=== PATIENT | male | born 1940 | race Caucasian/White ===

== ENCOUNTER 2021-11-05 15:10 | Emergency (ER) | payer MEDICARE, OTHER, SELFPAY ==
[2021-11-05] VITALS (48 sets, daily range): BP systolic 103–201; BP diastolic 75–138; PULSE 69–101; RESP 12–26; TEMP 36.3; O2SAT 91–99; BMI 26.0
--- NOTE | 2021-11-05 16:09 | CRLHL7_ITS ---
For Patients: As a result of the Century Cures Act, medical imaging exams and procedure reports are released immediately into your electronic medical record. You may view this report before your referring provider. If you have questions, please contact your health care provider. Indication: Ankle pain. Technique: Left ankle, 3 views. Comparison: None. Findings: Bones: Alignment is normal. No fractures or bone lesions. Joint spaces: Unremarkable. Soft tissues: Small amount of soft tissue swelling. Impression: No sign of acute injury. Dictated by Ron Mcleod MD @ 11/05/2021 5:08:25 PM (Electronically Signed)
--- NOTE | 2021-11-05 16:09 | CRLHL7_ITS ---
For Patients: As a result of the Century Cures Act, medical imaging exams and procedure reports are released immediately into your electronic medical record. You may view this report before your referring provider. If you have questions, please contact your health care provider. INDICATION: Chest pain. TECHNIQUE: Chest 1 views. COMPARISON: None. FINDINGS: Lungs: Coarse interstitial markings suggest chronic changes. No focal consolidation. Pleura: No pleural effusion or pneumothorax. Heart and Mediastinum: The cardiomediastinal silhouette is normal. The vessels are unremarkable. Bones: Unremarkable. IMPRESSION: No acute cardiopulmonary disease. Dictated by Ron Mcleod MD @ 11/05/2021 5:10:02 PM (Electronically Signed)
--- NOTE | 2021-11-05 16:11 | ED_ITS ---
HPI - General Adult General Time Seen by Provider: 16:11 <Rashida Wan MD - Last Filed: 11/05/21 22:45> Date Seen: 11/05/21 <Rashida Wan MD - Last Filed: 11/05/21 22:45> Chief complaint: Chest Pain <Rashida Wan MD - Last Filed: 11/05/21 22:45> Stated complaint: Chest Pain <Rashida Wan MD - Last Filed: 11/05/21 22:45> Time Seen by Provider: 11/05/21 15:55 <Rashida Wan MD - Last Filed: 11/05/21 22:45> Source: patient and RN notes reviewed <Rashida Wan MD - Last Filed: 11/05/21 22:45> Mode of arrival: ambulatory <Rashida Wan MD - Last Filed: 11/05/21 22:45> Limitations: no limitations <Rashida Wan MD - Last Filed: 11/05/21 22:45> History of Present Illness HPI narrative: Patient is a 81-year-old male coming in with recurrent chest pain today. It woke him this morning and then went away pretty quickly. He attempted to jadiel an his house after that and had that chest pain return and was sweating with this. He went and sat down in the recliner in it went away. He ate lunch and then attempted to go out in multiple on his riding lawnmower. The pain came back again he went back in the house and waited in his recliner on it took longer to go away. He does not take any baseline aspirin, did try a couple Tylenol at noon. About a week and a half ago he did injure his left ankle. States it was swollen and there was bruising. He finally got the swelling to go down with icing. He was concerned that maybe this could be related with a blood clot. He has had no calf pain or swelling. He is not having any pain currently now. He has never had an UT before. He states he had stress test a long time ago. He is not feeling short of breath. He has no abdominal pain but does feel like he has a little gassy and burping. The pain was in his chest and radiated into his left arm. He describes it as severe. Denies any alcohol use, states he can no longer drink it as it really affects him. <Rashida Wan MD - Last Filed: 11/05/21 22:45> Related Data Home medications: Home Medications Medication Instructions Recorded Confirmed No Known Home Medications 11/05/21 11/05/21 <Rashida Wan MD - Last Filed: 11/05/21 22:45> Allergies/adverse reactions: Allergies Allergy/AdvReac Type Severity Reaction Status Date / Time No Known Drug Allergies Allergy Verified 11/05/21 17:08 <Rashida Wan MD - Last Filed: 11/05/21 22:45> Review of Systems Status of ROS: Reports: 10 or more systems reviewed and unremarkable except as noted in History and below <Rashida Wan MD - Last Filed: 11/05/21 22:45> PFSH PFS Social History: Social History Smoking Status: Never smoker Do you use any of these nicotine containing products: None How often do you have a drink containing alcohol: monthly or less How often do you have six or more drinks on one occasion: Never AUDIT-C Alcohol total score: 1 Non-prescribed substance use: denies use service: Yes <Rashida Wan MD - Last Filed: 11/05/21 22:45> Exam Const: Vital Signs, click to edit/add: Vital Signs - 24 hr 11/05/21 15:25 11/05/21 16:46 11/05/21 17:01 Temperature 97.4 F L Pulse Rate 84 Pulse Rate [Right Pulse Oximeter] 97 Respiratory Rate 22 Blood Pressure 147/89 H Blood Pressure [Ri ght Upper Arm] 201/122 H Pulse Oximetry 98 96 Oxygen Delivery Me thod 11/05/21 17:32 11/05/21 18:01 11/05/21 18:32 Temperature Pulse Rate 73 75 69 Pulse Rate [Right Pulse Oximeter] Respiratory Rate Blood Pressure 166/99 H 155/96 H 159/97 H Blood Pressure [Ri ght Upper Arm] Pulse Oximetry 97 95 97 Oxygen Delivery Me thod 11/05/21 16:00 11/05/21 16:30 11/05/21 19:00 Temperature Pulse Rate 86 80 90 Pulse Rate [Right Pulse Oximeter] Respiratory Rate 12 16 16 Blood Pressure 149/96 H 152/90 H 198/138 H Blood Pressure [Ri ght Upper Arm] Pulse Oximetry 96 96 98 Oxygen Delivery Me thod 11/05/21 19:10 11/05/21 19:15 11/05/21 19:25 Temperature Pulse Rate 90 100 88 Pulse Rate [Right Pulse Oximeter] Respiratory Rate 13 18 Blood Pressure 152/108 H 144/107 H 133/93 H Blood Pressure [Ri ght Upper Arm] Pulse Oximetry 95 95 96 Oxygen Delivery Me od 11/05/21 19:30 11/05/21 19:35 11/05/21 19:40 Temperature Pulse Rate 96 95 99 Pulse Rate [Right Pulse Oximeter] Respiratory Rate 26 H Blood Pressure 143/100 H 141/104 H 140/115 H Blood Pressure [Ri ght Upper Arm] Pulse Oximetry 97 96 [facility] 19:45 11/05/21 20:00 11/05/21 20:15 Temperature Pulse Rate 90 92 91 Pulse Rate [Right Pulse Oximeter] Respiratory Rate 12 14 12 Blood Pressure 145/90 H 149/90 H 133/94 H Blood Pressure [Ri ght Upper Arm] Pulse Oximetry 97 95 94 Oxygen Delivery Me thod 11/06/21 00:30 11/06/21 00:00 11/05/21 23:30 Temperature Pulse Rate Pulse Rate [Right Pulse Oximeter] 82 82 76 Respiratory Rate 16 16 16 Blood Pressure Blood Pressure [Ri ght Upper Arm] 124/86 131/93 H 123/85 Pulse Oximetry 97 97 97 Oxygen Delivery Me od Room Air Room Air Room Air 11/05/21 23:00 11/05/21 22:30 11/05/21 22:00 Temperature Pulse Rate Pulse Rate [Right Pulse Oximeter] 80 72 83 Respiratory Rate 16 16 16 Blood Pressure Blood Pressure [Ri ght Upper Arm] 121/75 119/78 103/79 Pulse Oximetry 97 97 97 Oxygen Delivery Me od Room Air Room Air Room Air 11/05/21 21:30 11/05/21 21:00 11/05/21 20:45 Temperature Pulse Rate Pulse Rate [Right Pulse Oximeter] 83 89 97 Respiratory Rate 16 16 16 Blood Pressure Blood Pressure [Ri ght Upper Arm] 120/88 139/85 131/93 H Pulse Oximetry 97 97 95 Oxygen Delivery Me thod Room Air Room Air Room Air 11/05/21 19:02 11/05/21 19:12 11/05/21 19:17 Temperature Pulse Rate 93 98 88 Pulse Rate [Right Pulse Oximeter] Respiratory Rate Blood Pressure 198/138 H 152/108 H 144/107 H Blood Pressure [Ri ght Upper Arm] Pulse Oximetry 97 92 96 Oxygen Delivery Me thod 11/05/21 19:27 11/05/21 19:31 11/05/21 19:34 Temperature Pulse Rate 100 97 97 Pulse Rate [Right Pulse Oximeter] Respiratory Rate Blood Pressure 133/93 H 143/100 H Blood Pressure [Ri ght Upper Arm] Pulse Oximetry 94 95 95 Oxygen Delivery Me thod 11/05/21 19:36 11/05/21 19:41 11/05/21 19:46 Temperature Pulse Rate 86 96 101 H Pulse Rate [Right Pulse Oximeter] Respiratory Rate Blood Pressure 141/104 H 140/115 H 145/90 H Blood Pressure [Ri ght Upper Arm] Pulse Oximetry 95 95 93 Oxygen Delivery Me thod 11/05/21 20:02 11/05/21 20:16 11/05/21 20:32 Temperature Pulse Rate 100 97 99 Pulse Rate [Right Pulse Oximeter] Respiratory Rate Blood Pressure 149/90 H 133/94 H 127/88 Blood Pressure [Ri ght Upper Arm] Pulse Oximetry 95 94 92 Oxygen Delivery Me thod 11/05/21 21:01 11/05/21 21:17 11/05/21 21:31 Temperature Pulse Rate 85 83 Pulse Rate [Right Pulse Oximeter] Respiratory Rate Blood Pressure 139/85 120/88 Blood Pressure [Ri ght Upper Arm] Pulse Oximetry 95 96 Oxygen Delivery Me thod 11/05/21 22:02 11/05/21 22:18 11/05/21 22:30 Temperature Pulse Rate 83 76 Pulse Rate [Right Pulse Oximeter] Respiratory Rate Blood Pressure 103/79 Blood Pressure [Ri ght Upper Arm] Pulse Oximetry 93 95 Oxygen Delivery Me thod 11/05/21 22:31 11/05/21 22:45 11/05/21 23:00 Temperature Pulse Rate 80 85 81 Pulse Rate [Right Pulse Oximeter] Respiratory Rate Blood Pressure 119/78 Blood Pressure [Ri ght Upper Arm] Pulse Oximetry 94 92 95 Oxygen Delivery Me thod 11/05/21 23:01 11/05/21 23:15 11/05/21 23:30 Temperature Pulse Rate 78 80 77 Pulse Rate [Right Pulse Oximeter] Respiratory Rate Blood Pressure 121/75 Blood Pressure [Ri ght Upper Arm] Pulse Oximetry 95 95 94 Oxygen Delivery Me thod 11/05/21 23:31 11/05/21 23:45 11/06/21 00:00 Temperature Pulse Rate 82 84 70 Pulse Rate [Right Pulse Oximeter] Respiratory Rate Blood Pressure 123/85 Blood Pressure [Ri ght Upper Arm] Pulse Oximetry 92 91 96 Oxygen Delivery Me thod 11/06/21 00:02 11/06/21 00:21 11/06/21 00:30 Temperature Pulse Rate 79 80 87 Pulse Rate [Right Pulse Oximeter] Respiratory Rate Blood Pressure 123/78 Blood Pressure [Ri ght Upper Arm] Pulse Oximetry 95 97 96 Oxygen Delivery Me thod 11/06/21 00:31 11/06/21 00:45 Temperature Pulse Rate 78 82 Pulse Rate [Right Pulse Oximeter] Respiratory Rate Blood Pressure 124/86 Blood Pressure [Ri ght Upper Arm] Pulse Oximetry 96 95 Oxygen Delivery Me thod <Rashida Wan MD - Last Filed: 11/05/21 22:45> Vital Signs, click to edit/add: Vital Signs - 24 hr 11/05/21 15:25 11/05/21 16:46 11/05/21 17:01 Temperature 97.4 F L Pulse Rate 84 Pulse Rate [Right Pulse Oximeter] 97 Respiratory Rate 22 Blood Pressure 147/89 H Blood Pressure [Ri ght Upper Arm] 201/122 H Pulse Oximetry 98 96 Oxygen Delivery Me thod 11/05/21 17:32 11/05/21 18:01 11/05/21 18:32 Temperature Pulse Rate 73 75 69 Pulse Rate [Right Pulse Oximeter] Respiratory Rate Blood Pressure 166/99 H 155/96 H 159/97 H Blood Pressure [Ri ght Upper Arm] Pulse Oximetry 97 95 97 Oxygen Delivery Me thod 11/05/21 16:00 11/05/21 16:30 11/05/21 19:00 Temperature Pulse Rate 86 80 90 Pulse Rate [Right Pulse Oximeter] Respiratory Rate 12 16 16 Blood Pressure 149/96 H 152/90 H 198/138 H Blood Pressure [Ri ght Upper Arm] Pulse Oximetry 96 96 98 [facility] 19:10 11/05/21 19:15 11/05/21 19:25 Temperature Pulse Rate 90 100 88 Pulse Rate [Right Pulse Oximeter] Respiratory Rate 13 18 Blood Pressure 152/108 H 144/107 H 133/93 H Blood Pressure [Ri ght Upper Arm] Pulse Oximetry 95 95 96 [facility] 11/05/21 19:30 11/05/21 19:35 11/05/21 19:40 Temperature Pulse Rate 96 95 99 Pulse Rate [Right Pulse Oximeter] Respiratory Rate 26 H Blood Pressure 143/100 H 141/104 H 140/115 H Blood Pressure [Ri ght Upper Arm] Pulse Oximetry 97 96 99 [facility] 11/05/21 19:45 11/05/21 20:00 11/05/21 20:15 Temperature Pulse Rate 90 92 91 Pulse Rate [Right Pulse Oximeter] Respiratory Rate 12 14 12 Blood Pressure 145/90 H 149/90 H 133/94 H Blood Pressure [Ri ght Upper Arm] Pulse Oximetry 97 95 94 [facility] 11/06/21 00:30 11/06/21 00:00 11/05/21 23:30 Temperature Pulse Rate Pulse Rate [Right Pulse Oximeter] 82 82 76 Respiratory Rate 16 16 16 Blood Pressure Blood Pressure [Ri ght Upper Arm] 124/86 131/93 H 123/85 Pulse Oximetry 97 97 97 Oxygen Delivery [facility] Room Air Room Air Room Air 11/05/21 23:00 11/05/21 22:30 11/05/21 22:00 Temperature Pulse Rate Pulse Rate [Right Pulse Oximeter] 80 72 83 Respiratory Rate 16 16 16 Blood Pressure Blood Pressure [Ri ght Upper Arm] 121/75 119/78 103/79 Pulse Oximetry 97 97 97 Oxygen Delivery [facility] Room Air Room Air Room Air 11/05/21 21:30 11/05/21 21:00 11/05/21 20:45 Temperature Pulse Rate Pulse Rate [Right Pulse Oximeter] 83 89 97 Respiratory Rate 16 16 16 Blood Pressure Blood Pressure [Ri ght Upper Arm] 120/88 139/85 131/93 H Pulse Oximetry 97 97 95 Oxygen Delivery Me thod Room Air Room Air Room Air 11/05/21 19:02 11/05/21 19:12 11/05/21 19:17 Temperature Pulse Rate 93 98 88 Pulse Rate [Right Pulse Oximeter] Respiratory Rate Blood Pressure 198/138 H 152/108 H 144/107 H Blood Pressure [Ri ght Upper Arm] Pulse Oximetry 97 92 96 Oxygen Delivery Me thod 11/05/21 19:27 11/05/21 19:31 11/05/21 19:34 Temperature Pulse Rate 100 97 97 Pulse Rate [Right Pulse Oximeter] Respiratory Rate Blood Pressure 133/93 H 143/100 H Blood Pressure [Ri ght Upper Arm] Pulse Oximetry 94 95 95 Oxygen Delivery Me thod 11/05/21 19:36 11/05/21 19:41 11/05/21 19:46 Temperature Pulse Rate 86 96 101 H Pulse Rate [Right Pulse Oximeter] Respiratory Rate Blood Pressure 141/104 H 140/115 H 145/90 H Blood Pressure [Ri ght Upper Arm] Pulse Oximetry 95 95 93 Oxygen Delivery Me thod 11/05/21 20:02 11/05/21 20:16 11/05/21 20:32 Temperature Pulse Rate 100 97 99 Pulse Rate [Right Pulse Oximeter] Respiratory Rate Blood Pressure 149/90 H 133/94 H 127/88 Blood Pressure [Ri ght Upper Arm] Pulse Oximetry 95 94 92 Oxygen Delivery Me thod 11/05/21 21:01 11/05/21 21:17 11/05/21 21:31 Temperature Pulse Rate 85 83 Pulse Rate [Right Pulse Oximeter] Respiratory Rate Blood Pressure 139/85 120/88 Blood Pressure [Ri ght Upper Arm] Pulse Oximetry 95 96 Oxygen Delivery Me thod 11/05/21 22:02 11/05/21 22:18 11/05/21 22:30 Temperature Pulse Rate 83 76 Pulse Rate [Right Pulse Oximeter] Respiratory Rate Blood Pressure 103/79 Blood Pressure [Ri ght Upper Arm] Pulse Oximetry 93 95 Oxygen Delivery Me thod 11/05/21 22:31 11/05/21 22:45 11/05/21 23:00 Temperature Pulse Rate 80 85 81 Pulse Rate [Right Pulse Oximeter] Respiratory Rate Blood Pressure 119/78 Blood Pressure [Ri ght Upper Arm] Pulse Oximetry 94 92 95 Oxygen Delivery Me thod 11/05/21 23:01 11/05/21 23:15 11/05/21 23:30 Temperature Pulse Rate 78 80 77 Pulse Rate [Right Pulse Oximeter] Respiratory Rate Blood Pressure 121/75 Blood Pressure [Ri ght Upper Arm] Pulse Oximetry 95 95 94 Oxygen Delivery Me thod 11/05/21 23:31 11/05/21 23:45 11/06/21 00:00 Temperature Pulse Rate 82 84 70 Pulse Rate [Right Pulse Oximeter] Respiratory Rate Blood Pressure 123/85 Blood Pressure [Ri ght Upper Arm] Pulse Oximetry 92 91 96 Oxygen Delivery Me thod 11/06/21 00:02 11/06/21 00:21 11/06/21 00:30 Temperature Pulse Rate 79 80 87 Pulse Rate [Right Pulse Oximeter] Respiratory Rate Blood Pressure 123/78 Blood Pressure [Ri ght Upper Arm] Pulse Oximetry 95 97 96 Oxygen Delivery Me thod 11/06/21 00:31 11/06/21 00:45 Temperature Pulse Rate 78 82 Pulse Rate [Right Pulse Oximeter] Respiratory Rate Blood Pressure 124/86 Blood Pressure [Ri ght Upper Arm] Pulse Oximetry 96 95 Oxygen Delivery Me thod <Gonsalo Busch MD - Last Filed: 11/06/21 02:26> Documenting provider has reviewed patient's vital signs: yes <Rashida Wan MD - Last Filed: 11/05/21 22:45> Common normals: no apparent distress, average body habitus, oriented x3, no limitations, healthy appearing and alert <Rashida Wan MD - Last Filed: 11/05/21 22:45> General appearance: cooperative, comfortable and well kempt <Rashida Wan MD - Last Filed: 11/05/21 22:45> HENMT: Common normals: normocephalic, head/scalp atraumatic and hearing grossly normal bilaterally <Rashida Wan MD - Last Filed: 11/05/21 22:45> Head and scalp: normocephalic and atraumatic <Rashida Wan MD - Last Filed: 11/05/21 22:45> Eye: Common normals: PERRL, EOMs intact bilaterally, conjunctivae normal and no scleral icterus <Rashida Wan MD - Last Filed: 11/05/21 22:45> Conjunctiva: conjunctiva(e) normal <Rashida Wan MD - Last Filed: 11/05/21 22:45> Pupil: PERRL <Rashida Wan MD - Last Filed: 11/05/21 22:45> Neck & C-Spine: Common normals: full ROM, no lymphadenopathy, supple, no meningeal signs, no JVD and thyroid normal <Rashida Wan MD - Last Filed: 11/05/21 22:45> Thyroid: thyroid normal <Rashida Wan MD - Last Filed: 11/05/21 22:45> Chest: Common normals: inspection of chest normal and palpation of chest normal <Rashida Wan MD - Last Filed: 11/05/21 22:45> Resp: Common normals: normal respiratory effort, no retractions, no use of accessory muscles and clear to auscultation bilaterally <Rashida Stewart MD - Last Filed: 11/05/21 22:45> Auscultation: clear to auscultation bilaterally <Rashida Wan MD - Last Filed: 11/05/21 22:45> Cardio: Common normals: no JVD, regular rate, regular rhythm, S1 normal heart sound, S2 normal heart sound, no gallops, no clicks and no murmurs <Rashida Wan MD - Last Filed: 11/05/21 22:45> Rate: regular rate <Rashida Wan MD - Last Filed: 11/05/21 22:45> Rhythm: regular rhythm <Rashida Wan MD - Last Filed: 11/05/21 22:45> Heart sounds: S1 normal and S2 normal <Rashida Wan MD - Last Filed: 11/05/21 22:45> GI: Common normals: Normal to inspection, nondistended, normoactive bowel sounds present, soft to palpation, non-tender, no hepatosplenomegaly and no masses <Rashida Wan MD - Last Filed: 11/05/21 22:45> Palpation: soft and no hepatosplenomegaly <Rashida Wan MD - Last Filed: 11/05/21 22:45> Extremity: Common normals: normal to inspection, normal capillary refill, no joint enlargement, no clubbing, cyanosis or edema, no calf tenderness and no pedal edema <Rashida Wan MD - Last Filed: 11/05/21 22:45> Other: The left ankle is without swelling but he does have medial malleolus tenderness. He certainly does not have any calf swelling or tenderness, no pretibial edema on this side. <Rashida Wan MD - Last Filed: 11/05/21 22:45> Neuro: Common normals: oriented x3 <Rashida aWn MD - Last Filed: 11/05/21 22:45> Sensorium/orientation: alert <Rashida Wan MD - Last Filed: 11/05/21 22:45> Meningeal signs: no meningeal signs <Rashida Wan MD - Last Filed: 11/05/21 22:45> Psych: Appearance: well kempt <Rashida Wan MD - Last Filed: 11/05/21 22:45> Skin: Common normals: no rashes or lesions noted (Skin is tanned) <Rashida Wan MD - Last Filed: 11/05/21 22:45> General skin exam: no rashes or lesions noted (Skin is tanned) <Rashida Wan MD - Last Filed: 11/05/21 22:45> Course Course Hospital Course: Patient will be given a 324 mg aspirin as his troponin is mildly elevated. In his differential I do think thromboembolic disease is less likely given his blood pressure is elevated. Coronary arterial vascular disease, dissection all come to mind. He understands he may need further imaging if the D-dimer is elevated. Will continue to monitor his blood pressure quite closely initially here. Heart rate is high enough that we could give him a beta-contreras to help bring this down a bit. He is no longer having any chest symptomatology. Will obtain a portable chest x-ray, will x-ray his left ankle to ensure no traumatic change there. <Rashida Wan MD - Last Filed: 11/05/21 22:45> Reevaluation(s) Reevaluation #1: Nursing staff brought me a manager cardiac cath strip showing what appears to be some short-lived V-tach, patient reportedly not symptomatic with it. However when nursing staff went in to try to get a repeat EKG he was starting to have some chest pain right after this. EKG showed sinus rhythm 73 beats per minute with acute ST segment elevation V1 through V3, maybe mildly V4 and V5, some ST depression V6. He was diaphoretic and sweaty. We did give him 1 sublingual n itroglycerin 0.4 mg of which he did feel helped. His blood pressure was elevated in the 190s at this point. Nursing staff is attempting to get another IV in. They will recycle a blood pressure once they have completed this. I have asked nursing staff to initiate some IV nitroglycerin, this should help bring blood pressure down a bit to and will give him some baseline ongoing nitroglycerin. I have asked for ACS heparin protocol. I have contacted [facility] for transfer and am awaiting a call back from cardiology. Will continue to work on pain management, will converse with Cardiology to see if the rather have Brilinta or Plavix. <Rashida Wan MD - Last Filed: 11/05/21 22:45> Time: 18:55 <Rashida Wan MD - Last Filed: 11/05/21 22:45> Reevaluation #2: Spoke with Dr. Vinson cardiology from [facility], repeat EKG now with patient being pain free after the 1 sublingual nitroglycerin is showing sinus rhythm, 100 beats per minute, no acute pathology. [facility] is on magenta and thus cannot take him since he is not a level 1 any longer. [facility] of [facility] is magenta, meaning they are beyond capacity. They will not even wait list this patient. I have contacted [facility], spoke with the charge nurse Evita at 7:26 p.m.. Male facilities are on divert right now, she recommended we call back after 8:00 p.m. to see if that is going to be the case as they will be re- evaluating at that time. I will have staff look at other facilities. This patient obviously needs to get to Cardiology, has unstable angina. Will hold on Plavix loading at this time. <Rashida Wan MD - Last Filed: 11/05/21 22:45> Time: 19:27 <Rashida Wan MD - Last Filed: 11/05/21 22:45> Reevaluation #3: Patient is comfortable, no recurrence of pain. Will have point of care troponin updated to see where the level is. He is aware to let us know if there is any return of his diaphoresis chest pain or left arm pain. We are calling facilities again to see if there might be any chance for transfer to Cardiology. <Rashida Wan MD - Last Filed: 11/05/21 22:45> Time: 21:42 <Rashida Wan MD - Last Filed: 11/05/21 22:45> Additional Reevaluation(s): Awaiting [facility] chart review of this patient and call back from them. We are also waiting to hear back from [facility]. All other facilities including [facility], [facility], [facility], [facility] are unable to accept the patient. Care has been signed out to Dr. Busch. <Rashida Wan MD - Last Filed: 11/05/21 22:45> Awaiting [facility] chart review of this patient and call back from them. We are also waiting to hear back from [facility]. All other facilities including [facility], [facility], [facility], [facility] are unable to accept the patient. Care has been signed out to Dr. Busch. 1:00 AM patient remained stable in the emergency department prior to transfer, no further episodes of chest pain and remained on nitroglycerin and heparin drips. Transfer to [facility] in stable condition. Did not receive a call back from [facility]. <Gonsalo Busch MD - Last Filed: 11/06/21 02:26> Vital Signs Vital signs: Initial Vital Signs Temperature 97.4 F L 11/05/21 15:25 Temperature Source Temporal Artery Scan 11/05/21 15:25 Pulse Rate 97 11/05/21 15:25 Respiratory Rate 22 11/05/21 15:25 Blood Pressure 201/122 H 11/05/21 15:25 Blood Pressure Mean 148 11/05/21 15:25 Blood Pressure Position Supine 11/05/21 15:25 Pulse Oximetry 98 11/05/21 15:25 Vital Signs Temperature 97.4 F L 11/05/21 15:25 Pulse Rate 97 11/05/21 15:25 Respiratory Rate 22 11/05/21 15:25 Blood Pressure 201/122 H 11/05/21 15:25 Pulse Oximetry 98 11/05/21 15:25 Temperature 97.4 F L 11/05/21 15:25 Pulse Rate 82 11/06/21 00:45 Respiratory Rate 16 11/06/21 00:30 Blood Pressure 124/86 11/06/21 00:31 Pulse Oximetry 95 11/06/21 00:45 Oxygen Delivery Method 11/06/21 00:30 <Rashida Wan MD - Last Filed: 11/05/21 22:45> Initial Vital Signs Temperature 97.4 F L 11/05/21 15:25 Temperature Source Temporal Artery Scan 11/05/21 15:25 Pulse Rate 97 11/05/21 15:25 Respiratory Rate 22 11/05/21 15:25 Blood Pressure 201/122 H 11/05/21 15:25 Blood Pressure Mean 148 11/05/21 15:25 Blood Pressure Position Supine 11/05/21 15:25 Pulse Oximetry 98 11/05/21 15:25 Vital Signs Temperature 97.4 F L 11/05/21 15:25 Pulse Rate 97 11/05/21 15:25 Respiratory Rate 22 11/05/21 15:25 Blood Pressure 201/122 H 11/05/21 15:25 Pulse Oximetry 98 11/05/21 15:25 Temperature 97.4 F L 11/05/21 15:25 Pulse Rate 82 11/06/21 00:45 Respiratory Rate 16 11/06/21 00:30 Blood Pressure 124/86 11/06/21 00:31 Pulse Oximetry 95 11/06/21 00:45 Oxygen Delivery Method 11/06/21 00:30 <Gonsalo Busch MD - Last Filed: 11/06/21 02:26> Medical Decision Making Lab Data Lab results reviewed: Yes I reviewed the patient's lab results <Rashida Wan MD - Last Filed: 11/05/21 22:45> Labs: Lab Results 11/05/21 11/05/21 11/05/21 Range/Units 15:35 15:35 15:35 WBC 9.94 (4.50-11.00) K/uL RBC 5.45 (4.30-5.90) m/uL Hgb 16.7 (13.5-17.5) gm/dL Hct 48.7 (37.0-53.0) % MCV 89 (80-100) fL MCH 31 (26-34) pg MCHC 34 (32-36) gm/dL RDW Coeff of Lesli 13.1 (11.5-15.5) % Plt Count 237 (140-440) K/uL Neut % (Auto) 70.7 (42.0-72.0) % Lymph % (Auto) 18.0 L (20-44) % [place] % (Auto) 10.0 (0.0-11.0) % Eos % (Auto) 0.4 (0.0-7.0) % Baso % (Auto) 0.4 (0.0-3.0) % Neut # (Auto) 7.03 H (1.7-7.0) K/uL Lymph # (Auto) 1.80 (0.90-2.90) K/uL [place] # (Auto) 1.00 H (0.00-0.90) K/UL Eos # (Auto) 0.04 (0.00-0.50) K/uL Baso # (Auto) 0.04 (0.00-0.30) K/uL Abs Immat Gran (auto) 0.05 (0.00-0.30) K/uL INR (0.91-1.10) APTT (23-33) Seconds D-Dimer Quant (PE/DVT) 1.07 H (0.00-0.50) ug/ml Sodium (135-149) mmol/L Potassium (3.6-5.1) mmol/L Chloride (96-114) mmol/L Carbon Dioxide (20-32) mmol/L BUN (7-30) mg/dL Creatinine (0.5-1.5) mg/dL Estimated Creat Clear Estimated GFR ml/min Glucose (60-115) mg/dL Lactate (0.5-1.9) mmol/L Calcium (8.4-10.6) mg/dL Total Bilirubin (0.1-1.5) mg/dL AST (12-35) U/L ALT (4-50) U/L Alkaline Phosphatase (40-150) U/L C-Reactive Protein Cancelled NT-Pro-B Natriuret Pep (0-450) PG/mL Total Protein (6.0-8.3) g/dL Albumin (3.3-5.0) g/dL Lipase (23-300) U/L SARS-CoV-2 (PCR) (Negative) POC Troponin I (0.01-0.04) ng/ml 11/05/21 11/05/21 11/05/21 Range/Units 15:35 15:35 15:35 WBC (4.50-11.00) K/uL RBC (4.30-5.90) m/uL Hgb (13.5-17.5) gm/dL Hct (37.0-53.0) % MCV (80-100) fL MCH (26-34) pg MCHC (32-36) gm/dL RDW Coeff of Lesli (11.5-15.5) % Plt Count (140-440) K/uL Neut % (Auto) (42.0-72.0) % Lymph % (Auto) (20-44) % [place] % (Auto) (0.0-11.0) % Eos % (Auto) (0.0-7.0) % Baso % (Auto) (0.0-3.0) % Neut # (Auto) (1.7-7.0) K/uL Lymph # (Auto) (0.90-2.90) K/uL [place] # (Auto) (0.00-0.90) K/UL Eos # (Auto) (0.00-0.50) K/uL Baso # (Auto) (0.00-0.30) K/uL Abs Immat Gran (auto) (0.00-0.30) K/uL INR (0.91-1.10) APTT (23-33) Seconds D-Dimer Quant (PE/DVT) (0.00-0.50) ug/ml Sodium 139 (135-149) mmol/L Potassium 4.5 (3.6-5.1) mmol/L Chloride 103 (96-114) mmol/L Carbon Dioxide 22 (20-32) mmol/L BUN 20 (7-30) mg/dL Creatinine 0.8 (0.5-1.5) mg/dL Estimated Creat Clear 71.59 Estimated GFR 90 ml/min Glucose 115 (60-115) mg/dL Lactate 2.1 H (0.5-1.9) mmol/L Calcium 9.5 (8.4-10.6) mg/dL Total Bilirubin 0.6 (0.1-1.5) mg/dL AST 40 H (12-35) U/L ALT 29 (4-50) U/L Alkaline Phosphatase 63 (40-150) U/L C-Reactive Protein < 0.5 L NT-Pro-B Natriuret Pep 167 (0-450) PG/mL Total Protein 8.5 H (6.0-8.3) g/dL Albumin 4.6 (3.3-5.0) g/dL Lipase 57 (23-300) U/L SARS-CoV-2 (PCR) (Negative) POC Troponin I 0.06 H (0.01-0.04) ng/ml 11/05/21 11/05/21 11/05/21 Range/Units 15:35 18:45 20:07 WBC (4.50-11.00) K/uL RBC (4.30-5.90) m/uL Hgb (13.5-17.5) gm/dL Hct (37.0-53.0) % MCV (80-100) fL MCH (26-34) pg MCHC (32-36) gm/dL RDW Coeff of Lesli (11.5-15.5) % Plt Count (140-440) K/uL Neut % (Auto) (42.0-72.0) % Lymph % (Auto) (20-44) % [place] % (Auto) (0.0-11.0) % Eos % (Auto) (0.0-7.0) % Baso % (Auto) (0.0-3.0) % Neut # (Auto) (1.7-7.0) K/uL Lymph # (Auto) (0.90-2.90) K/uL [place] # (Auto) (0.00-0.90) K/UL Eos # (Auto) (0.00-0.50) K/uL Baso # (Auto) (0.00-0.30) K/uL Abs Immat Gran (auto) (0.00-0.30) K/uL INR 1.00 (0.91-1.10) APTT 32 (23-33) Seconds D-Dimer Quant (PE/DVT) (0.00-0.50) ug/ml Sodium (135-149) mmol/L Potassium (3.6-5.1) mmol/L Chloride (96-114) mmol/L Carbon Dioxide (20-32) mmol/L BUN (7-30) mg/dL Creatinine (0.5-1.5) mg/dL Estimated Creat Clear Estimated GFR ml/min Glucose (60-115) mg/dL Lactate (0.5-1.9) mmol/L Calcium (8.4-10.6) mg/dL Total Bilirubin (0.1-1.5) mg/dL AST (12-35) U/L ALT (4-50) U/L Alkaline Phosphatase (40-150) U/L C-Reactive Protein NT-Pro-B Natriuret Pep (0-450) PG/mL Total Protein (6.0-8.3) g/dL Albumin (3.3-5.0) g/dL Lipase (23-300) U/L SARS-CoV-2 (PCR) Negative SARS-CoV-2 (Negative) POC Troponin I 0.15 H (0.01-0.04) ng/ml 11/05/21 Range/Units 21:05 WBC (4.50-11.00) K/uL RBC (4.30-5.90) m/uL Hgb (13.5-17.5) gm/dL Hct (37.0-53.0) % MCV (80-100) fL MCH (26-34) pg MCHC (32-36) gm/dL RDW Coeff of Lesli (11.5-15.5) % Plt Count (140-440) K/uL Neut % (Auto) (42.0-72.0) % Lymph % (Auto) (20-44) % [place] % (Auto) (0.0-11.0) % Eos % (Auto) (0.0-7.0) % Baso % (Auto) (0.0-3.0) % Neut # (Auto) (1.7-7.0) K/uL Lymph # (Auto) (0.90-2.90) K/uL [place] # (Auto) (0.00-0.90) K/UL Eos # (Auto) (0.00-0.50) K/uL Baso # (Auto) (0.00-0.30) K/uL Abs Immat Gran (auto) (0.00-0.30) K/uL INR (0.91-1.10) APTT (23-33) Seconds D-Dimer Quant (PE/DVT) (0.00-0.50) ug/ml Sodium (135-149) mmol/L Potassium (3.6-5.1) mmol/L Chloride (96-114) mmol/L Carbon Dioxide (20-32) mmol/L BUN (7-30) mg/dL Creatinine (0.5-1.5) mg/dL Estimated Creat Clear Estimated GFR ml/min Glucose (60-115) mg/dL Lactate (0.5-1.9) mmol/L Calcium (8.4-10.6) mg/dL Total Bilirubin (0.1-1.5) mg/dL AST (12-35) U/L ALT (4-50) U/L Alkaline Phosphatase (40-150) U/L C-Reactive Protein NT-Pro-B Natriuret Pep (0-450) PG/mL Total Protein (6.0-8.3) g/dL Albumin (3.3-5.0) g/dL Lipase (23-300) U/L SARS-CoV-2 (PCR) (Negative) POC Troponin I 0.16 H (0.01-0.04) ng/ml <Rashida Wan MD - Last Filed: 11/05/21 22:45> Lab Results 11/05/21 11/05/21 11/05/21 Range/Units 15:35 15:35 15:35 WBC 9.94 (4.50-11.00) K/uL RBC 5.45 (4.30-5.90) m/uL Hgb 16.7 (13.5-17.5) gm/dL Hct 48.7 (37.0-53.0) % MCV 89 (80-100) fL MCH 31 (26-34) pg MCHC 34 (32-36) gm/dL RDW Coeff of Lesli 13.1 (11.5-15.5) % Plt Count 237 (140-440) K/uL Neut % (Auto) 70.7 (42.0-72.0) % Lymph % (Auto) 18.0 L (20-44) % [place] % (Auto) 10.0 (0.0-11.0) % Eos % (Auto) 0.4 (0.0-7.0) % Baso % (Auto) 0.4 (0.0-3.0) % Neut # (Auto) 7.03 H (1.7-7.0) K/uL Lymph # (Auto) 1.80 (0.90-2.90) K/uL [place] # (Auto) 1.00 H (0.00-0.90) K/UL Eos # (Auto) 0.04 (0.00-0.50) K/uL Baso # (Auto) 0.04 (0.00-0.30) K/uL Abs Immat Gran (auto) 0.05 (0.00-0.30) K/uL INR (0.91-1.10) APTT (23-33) Seconds D-Dimer Quant (PE/DVT) 1.07 H (0.00-0.50) ug/ml Sodium (135-149) mmol/L Potassium (3.6-5.1) mmol/L Chloride (96-114) mmol/L Carbon Dioxide (20-32) mmol/L BUN (7-30) mg/dL Creatinine (0.5-1.5) mg/dL Estimated Creat Clear Estimated GFR ml/min Glucose (60-115) mg/dL Lactate (0.5-1.9) mmol/L Calcium (8.4-10.6) mg/dL Total Bilirubin (0.1-1.5) mg/dL AST (12-35) U/L ALT (4-50) U/L Alkaline Phosphatase (40-150) U/L C-Reactive Protein Cancelled NT-Pro-B Natriuret Pep (0-450) PG/mL Total Protein (6.0-8.3) g/dL Albumin (3.3-5.0) g/dL Lipase (23-300) U/L SARS-CoV-2 (PCR) (Negative) POC Troponin I (0.01-0.04) ng/ml 11/05/21 11/05/21 11/05/21 Range/Units 15:35 15:35 15:35 WBC (4.50-11.00) K/uL RBC (4.30-5.90) m/uL Hgb (13.5-17.5) gm/dL Hct (37.0-53.0) % MCV (80-100) fL MCH (26-34) pg MCHC (32-36) gm/dL RDW Coeff of Lesli (11.5-15.5) % Plt Count (140-440) K/uL Neut % (Auto) (42.0-72.0) % Lymph % (Auto) (20-44) % [place] % (Auto) (0.0-11.0) % Eos % (Auto) (0.0-7.0) % Baso % (Auto) (0.0-3.0) % Neut # (Auto) (1.7-7.0) K/uL Lymph # (Auto) (0.90-2.90) K/uL [place] # (Auto) (0.00-0.90) K/UL Eos # (Auto) (0.00-0.50) K/uL Baso # (Auto) (0.00-0.30) K/uL Abs Immat Gran (auto) (0.00-0.30) K/uL INR (0.91-1.10) APTT (23-33) Seconds D-Dimer Quant (PE/DVT) (0.00-0.50) ug/ml Sodium 139 (135-149) mmol/L Potassium 4.5 (3.6-5.1) mmol/L Chloride 103 (96-114) mmol/L Carbon Dioxide 22 (20-32) mmol/L BUN 20 (7-30) mg/dL Creatinine 0.8 (0.5-1.5) mg/dL Estimated Creat Clear 71.59 Estimated GFR 90 ml/min Glucose 115 (60-115) mg/dL Lactate 2.1 H (0.5-1.9) mmol/L Calcium 9.5 (8.4-10.6) mg/dL Total Bilirubin 0.6 (0.1-1.5) mg/dL AST 40 H (12-35) U/L ALT 29 (4-50) U/L Alkaline Phosphatase 63 (40-150) U/L C-Reactive Protein < 0.5 L NT-Pro-B Natriuret Pep 167 (0-450) PG/mL Total Protein 8.5 H (6.0-8.3) g/dL Albumin 4.6 (3.3-5.0) g/dL Lipase 57 (23-300) U/L SARS-CoV-2 (PCR) (Negative) POC Troponin I 0.06 H (0.01-0.04) ng/ml 11/05/21 11/05/21 11/05/21 Range/Units 15:35 18:45 20:07 WBC (4.50-11.00) K/uL RBC (4.30-5.90) m/uL Hgb (13.5-17.5) gm/dL Hct (37.0-53.0) % MCV (80-100) fL MCH (26-34) pg MCHC (32-36) gm/dL RDW Coeff of Lesli (11.5-15.5) % Plt Count (140-440) K/uL Neut % (Auto) (42.0-72.0) % Lymph % (Auto) (20-44) % [place] % (Auto) (0.0-11.0) % Eos % (Auto) (0.0-7.0) % Baso % (Auto) (0.0-3.0) % Neut # (Auto) (1.7-7.0) K/uL Lymph # (Auto) (0.90-2.90) K/uL [place] # (Auto) (0.00-0.90) K/UL Eos # (Auto) (0.00-0.50) K/uL Baso # (Auto) (0.00-0.30) K/uL Abs Immat Gran (auto) (0.00-0.30) K/uL INR 1.00 (0.91-1.10) APTT 32 (23-33) Seconds D-Dimer Quant (PE/DVT) (0.00-0.50) ug/ml Sodium (135-149) mmol/L Potassium (3.6-5.1) mmol/L Chloride (96-114) mmol/L Carbon Dioxide (20-32) mmol/L BUN (7-30) mg/dL Creatinine (0.5-1.5) mg/dL Estimated Creat Clear Estimated GFR ml/min Glucose (60-115) mg/dL Lactate (0.5-1.9) mmol/L Calcium (8.4-10.6) mg/dL Total Bilirubin (0.1-1.5) mg/dL AST (12-35) U/L ALT (4-50) U/L Alkaline Phosphatase (40-150) U/L C-Reactive Protein NT-Pro-B Natriuret Pep (0-450) PG/mL Total Protein (6.0-8.3) g/dL Albumin (3.3-5.0) g/dL Lipase (23-300) U/L SARS-CoV-2 (PCR) Negative SARS-CoV-2 (Negative) POC Troponin I 0.15 H (0.01-0.04) ng/ml 11/05/21 Range/Units 21:05 WBC (4.50-11.00) K/uL RBC (4.30-5.90) m/uL Hgb (13.5-17.5) gm/dL Hct (37.0-53.0) % MCV (80-100) fL MCH (26-34) pg MCHC (32-36) gm/dL RDW Coeff of Lesli (11.5-15.5) % Plt Count (140-440) K/uL Neut % (Auto) (42.0-72.0) % Lymph % (Auto) (20-44) % [place] % (Auto) (0.0-11.0) % Eos % (Auto) (0.0-7.0) % Baso % (Auto) (0.0-3.0) % Neut # (Auto) (1.7-7.0) K/uL Lymph # (Auto) (0.90-2.90) K/uL [place] # (Auto) (0.00-0.90) K/UL Eos # (Auto) (0.00-0.50) K/uL Baso # (Auto) (0.00-0.30) K/uL Abs Immat Gran (auto) (0.00-0.30) K/uL INR (0.91-1.10) APTT (23-33) Seconds D-Dimer Quant (PE/DVT) (0.00-0.50) ug/ml Sodium (135-149) mmol/L Potassium (3.6-5.1) mmol/L Chloride (96-114) mmol/L Carbon Dioxide (20-32) mmol/L BUN (7-30) mg/dL Creatinine (0.5-1.5) mg/dL Estimated Creat Clear Estimated GFR ml/min Glucose (60-115) mg/dL Lactate (0.5-1.9) mmol/L Calcium (8.4-10.6) mg/dL Total Bilirubin (0.1-1.5) mg/dL AST (12-35) U/L ALT (4-50) U/L Alkaline Phosphatase (40-150) U/L C-Reactive Protein NT-Pro-B Natriuret Pep (0-450) PG/mL Total Protein (6.0-8.3) g/dL Albumin (3.3-5.0) g/dL Lipase (23-300) U/L SARS-CoV-2 (PCR) (Negative) POC Troponin I 0.16 H (0.01-0.04) ng/ml <Gonsalo Busch MD - Last Filed: 11/06/21 02:26> Imaging Data CT scan - chest: Attestation: I have reviewed the pertinent imaging results. <Rashida Stewart MD - Last Filed: 11/05/21 22:45> Radiologist's impression: Patient: DILAN BRADFORD Facility:?[facility] Patient ID:?[id number] Site Patient ID:?[id number]. Site :?[id number] Study:?CT Chest Angio PE STUDY-11/05/2021 5:22:23 PM Ordering Physician:Steve Field Final Report: INDICATION: Chest pain, high D-dimer. TECHNIQUE: CT chest PE was acquired with 95 mL Isovue 370 IV contrast. Coronal and sagittal reformats were generated. COMPARISON: None. FINDINGS: Pulmonary arteries: The quality of enhancement of the pulmonary arteries is adequate. No filling defects to suggest pulmonary emboli. No findings of pulmonary artery hypertension. Thyroid: Unremarkable. Thoracic lymph nodes: No enlarged supraclavicular, mediastinal, hilar, or axil homero lymph nodes. Mediastinum and esophagus: Unremarkable. Heart and vasculature: Unremarkable. Lungs: Unremarkable. Pleura: Unremarkable. Chest wall: Unremarkable. Upper abdomen: No acute or significant findings. Bones: Unremarkable for age. IMPRESSION: 1. No pulmonary embolism. 2. Grossly clear lungs. Please note that all CT scans at this facility use dose modulation, iterative reconstruction, and/or weight-based dosing when appropriate to reduce radiation dose to as low as reasonably achievable. Dictated by Ron Mcleod MD @ 11/05/2021 6:08:34 PM (Electronic Signature) <Rashida Wan MD - Last Filed: 11/05/21 22:45> Chest x-ray: Attestation: I have reviewed the pertinent imaging results. <Rashida Stewart MD - Last Filed: 11/05/21 22:45> My impression: My preliminary review of his chest x-ray is without acute cardiopulmonary pathology, await Radiology over-read. <Rashida Wan MD - Last Filed: 11/05/21 22:45> Radiologist's impression: Patient: DILAN BRADFORD Facility:?[facility] Patient ID:?[id number] Site Patient ID:?[id number]. Site :?[id number] Study:?XRay Chest PORTABLE-11/05/2021 4:32:30 PM Ordering Physician:Steve Field Final Report: INDICATION: Chest pain. TECHNIQUE: Chest 1 views. COMPARISON: None. FINDINGS: Lungs: Coarse interstitial markings suggest chronic changes. No focal consolidation. Pleura: No pleural effusion or pneumothorax. Heart and Mediastinum: The cardiomediastinal silhouette is normal. The vessels are unremarkable. Bones: Unremarkable. IMPRESSION: No acute cardiopulmonary disease. Dictated by Ron Mcleod MD @ 11/05/2021 5:10:02 PM (Electronic Signature) <Rashida Wan MD - Last Filed: 11/05/21 22:45> X-ray left ankle: Attestation: I have reviewed the pertinent imaging results. <Rashida Stewart MD - Last Filed: 11/05/21 22:45> My impression: I do not appreciate any acute fracture on my preliminary read. <Rashida Wan MD - Last Filed: 11/05/21 22:45> Radiologist's impression: Patient: DILAN BRADFORD Facility:?[facility] Patient ID:?[id number] Site Patient ID:?[id number]. Site :?[id number] Study:?XRay Extremity Left ANKLE-11/05/2021 4:32:52 PM Ordering Physician:Steve Field Final Report: Indication: Ankle pain. Technique: Left ankle, 3 views. Comparison: None. Findings: Bones: Alignment is normal. No fractures or bone lesions. Joint spaces: Unremarkable. Soft tissues: Small amount of soft tissue swelling. Impression: No sign of acute injury. Dictated by Ron Mcleod MD @ 11/05/2021 5:08:25 PM (Electronic Signature) <Rashida Wan MD - Last Filed: 11/05/21 22:45> ECG Data Attestation: I personally reviewed and interpreted this ECG as follows: (91 beats per minute, sinus rhythm, mild inferior flat segment depression in the inferior leads and certainly in V5 V6.) <Rashida Wan MD - Last Filed: 11/05/21 22:45> Prior ECG tracings: not available for review <Rashida Wan MD - Last Filed: 04/27 22:45> Critical Care Time Critical Care Time Critical Care Time: Yes Attestation: The patient required my highest level preparedness to intervene emergently and I personally spent this critical care time directly and personally managing the patient. This critical care time included: Obtaining a history; Examining the patient; Pulse oximetry; Ordering and reviewing of studies; Arranging urgent treatment with development of a management plan; Evaluation of patients r esponse to treatment; Frequent reassessment discussions with other providers. This critical care time was performed to assess and manage the high probability of imminent life-threatening deterioration that could result in multiorgan failure. It was exclusive of separate billable procedures and treating other patients and teaching time. <Rashida Wan MD - Last Filed: 11/05/21 22:45> Yes Attestation: The patient required my highest level preparedness to intervene emergently and I personally spent this critical care time directly and personally managing the patient. This critical care time included: Obtaining a history; Examining the patient; Pulse oximetry; Ordering and reviewing of studies; Arranging urgent treatment with development of a management plan; Evaluation of patients response to treatment; Frequent reassessment discussions with other providers. This critical care time was performed to assess and manage the high probability of imminent life-threatening deterioration that could result in multiorgan failure. It was exclusive of separate billable procedures and treating other patients and teaching time. Critical care time prolonged due to critical inpatient bed shortage regionally. <Gonsalo Busch MD - Last Filed: 11/06/21 02:26> Total Critical Care Time in Minutes: 90 <Rashida Wan MD - Last Filed: 11/05/21 22:45> 260 <Gonsalo Busch MD - Last Filed: 11/06/21 02:26> Discharge Plan Discharge Clinical Impression: Non-ST elevation (NSTEMI) myocardial infarction, Acute non-ST elevation myocardial infarction (NSTEMI) <Rashida Wan MD - Last Filed: 11/05/21 22:45> Prescriptions: No Action No Known Home Medications <Rashida Wan MD - Last Filed: 11/05/21 22:45>
[2021-11-05 16:15] LABS: Troponin, Point-of-Care* 0.06 ng/ml (0.01-0.04)
[2021-11-05 16:20] LABS: Lactate* 2.1 mmol/L (0.5-1.9)
[2021-11-05] MEDS: ASPIRIN 81 MG TAB.CHEW 324 MG PO (16:21)
[2021-11-05 16:22] LABS: Basophils Absolute Auto 0.04 K/uL (0.00-0.30); Basophils Percent Auto 0.4 % (0.0-3.0); Eosinophils Absolute Auto 0.04 K/uL (0.00-0.50); Eosinophils Percent Auto 0.4 % (0.0-7.0); Hematocrit 48.7 % (37.0-53.0); Hemoglobin* 16.7 gm/dL (13.5-17.5); Immature Granulocytes Abs Auto 0.05 K/uL (0.00-0.30); Mean Corpuscular HGB Conc 34 gm/dL (32-36); Mean Corpuscular Hemoglobin 31 pg (26-34); Mean Corpuscular Volume 89 fL (80-100); Neutrophils Absolute Auto 7.03 K/uL (1.7-7.0); Neutrophils Percent Auto 70.7 % (42.0-72.0); Platelet Count* 237 K/uL (140-440); RDW Coefficient of Variation % 13.1 % (11.5-15.5); Red Blood Count 5.45 m/uL (4.30-5.90); White Blood Count* 9.94 K/uL (4.50-11.00)
[2021-11-05 16:24] LABS: Slide Review Reflex No
[2021-11-05 16:42] LABS: D Dimer Quantitative* 1.07 ug/ml (0.00-0.50)
[2021-11-05 16:47] LABS: Albumin* 4.6 g/dL (3.3-5.0); Chloride* 103 mmol/L (96-114); Sodium* 139 mmol/L (135-149)
[2021-11-05 16:48] LABS: Potassium* 4.5 mmol/L (3.6-5.1)
[2021-11-05 16:50] LABS: Creatinine* 0.8 mg/dL (0.5-1.5); Est. Creatinine Clearance* 71.59; Estimated Glomerular Filt Rate 90 ml/min
[2021-11-05 16:51] LABS: Alanine Aminotransferase* 29 U/L (4-50); Alkaline Phosphatase* 63 U/L (40-150); Aspartate Amino Transferase* 40 U/L (12-35); Bilirubin Total* 0.6 mg/dL (0.1-1.5); Blood Urea Nitrogen* 20 mg/dL (7-30); Calcium* 9.5 mg/dL (8.4-10.6); Carbon Dioxide* 22 mmol/L (20-32); Glucose* 115 mg/dL (60-115); Lipase* 57 U/L (23-300); Total Protein* 8.5 g/dL (6.0-8.3)
[2021-11-05 16:55] LABS: C Reactive Protein* < 0.5 mg/dL (0.5-1.0)
[2021-11-05 16:58] LABS: NT Pro B Type NatriureticPept* 167 PG/mL (0-450)
--- NOTE | 2021-11-05 16:58 | CRLHL7_ITS ---
For Patients: As a result of the Century Cures Act, medical imaging exams and procedure reports are released immediately into your electronic medical record. You may view this report before your referring provider. If you have questions, please contact your health care provider. INDICATION: Chest pain, high D-dimer. TECHNIQUE: CT chest PE was acquired with 95 mL Isovue 370 IV contrast. Coronal and sagittal reformats were generated. COMPARISON: None. FINDINGS: Pulmonary arteries: The quality of enhancement of the pulmonary arteries is adequate. No filling defects to suggest pulmonary emboli. No findings of pulmonary artery hypertension. Thyroid: Unremarkable. Thoracic lymph nodes: No enlarged supraclavicular, mediastinal, hilar, or axillary lymph nodes. Mediastinum and esophagus: Unremarkable. Heart and vasculature: Unremarkable. Lungs: Unremarkable. Pleura: Unremarkable. Chest wall: Unremarkable. Upper abdomen: No acute or significant findings. Bones: Unremarkable for age. IMPRESSION: 1. No pulmonary embolism. 2. Grossly clear lungs. Please note that all CT scans at this facility use dose modulation, iterative reconstruction, and/or weight-based dosing when appropriate to reduce radiation dose to as low as reasonably achievable. Dictated by Ron Mcleod MD @ 11/05/2021 6:08:34 PM (Electronically Signed)
[2021-11-05 19:01] LABS: Troponin, Point-of-Care* 0.15 ng/ml (0.01-0.04)
--- NOTE | 2021-11-05 19:01 | ED.NURSE ---
Nitro Sl given at 185
[2021-11-05] MEDS: HEPARIN 5,000 UNIT/0.5 ML INJ 4000 UNIT IVP (19:13)
[2021-11-05] MEDS: HEPARIN 25,000 UNIT/500 ML BAG 20 UNIT IV (19:15)
[2021-11-05] MEDS: NITROGLYCERIN 0.4 MG TAB.SUBL SUBLINGUAL (19:18)
[2021-11-05] MEDS: NITROGLYCERIN/DEXTROSE 25,000 MCG/250 ML BOTTLE 3 MCG IVPB (19:20)
--- NOTE | 2021-11-05 19:37 | ED.NURSE ---
is on phone. denies pain. heparin at 1000 units/hr, nitro infusing at 5 mcg/min as ordered. bp 141/104. initial nitro did take the pain away. will continue to closely monitor.
--- NOTE | 2021-11-05 20:03 | ED.NURSE ---
Contacted [facility] to inquire for transfer. Was instructed to call Notification Line [phone] and relay that [facility] was unable to accept Pt and that Pt will be transferred elsewhere and costs can be covered by [facility]. Call placed.
[2021-11-05 20:42] LABS: SARS PCR* Negative SARS-CoV-2 (Negative)
[2021-11-05] MEDS: ACETAMINOPHEN 325 MG TABLET 650 MG PO (20:43)
[2021-11-05 21:03] LABS: Partial Thromboplastin Time* 32 Seconds (23-33); Prothrombin Time 13.6 Seconds
[2021-11-05 21:39] LABS: Troponin, Point-of-Care* 0.16 ng/ml (0.01-0.04)
[2021-11-06] VITALS: BP 131/93; PULSE 70; PULSE 82; RESP 16; O2SAT 96; O2SAT 97
[2021-11-06 00:02] VITALS: BP 123/78; PULSE 79; O2SAT 95
[2021-11-06 00:21] VITALS: PULSE 80; O2SAT 97
[2021-11-06 00:30] VITALS: BP 124/86; PULSE 82; PULSE 87; RESP 16; O2SAT 96; O2SAT 97
[2021-11-06 00:31] VITALS: BP 124/86; PULSE 78; O2SAT 96
--- NOTE | 2021-11-06 00:31 | ED.NURSE ---
RN to RN report given. RN name was Margaret. EMS here to take pt to [facility], [address], [address]
[2021-11-06 00:45] VITALS: PULSE 82; O2SAT 95
== END 2021-11-06 01:27 | disposition home or self-care (01) ==
PROVIDERS: Emergency Provider Family Medicine
DX: I21.4 Non-ST elevation (NSTEMI) myocardial infarction (principal)
CPT/HCPCS: 36415; 71045; 71260; 73610; 80053; 83605; 83690; 83880; 84484; 85025; 85379; 85610; 85730; 86140; 87635; 93005; 96365; 96375; 99285; 99291; 99292; A9270; J1644; Q9967

== ENCOUNTER 2021-11-06 00:58 | Outpatient (CLI) | payer MEDICARE, SELFPAY ==
--- OUTSIDE RECORDS SUMMARY | 2021-11-22 12:51 | XMS_ITS | Continuity of Care Document ---
:1940 Author Organization [facility] Care Team Providers Name Role Phone [facility] Unavailable Unavailable Problems Combined list of problems from Department of Defense and Veterans Affairs facilities. It does not include entries that were removed or entered in error. 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 [place] Esophageal [place] [facility] Glaucoma [facility] (SNOMED CT [id number]) Polyp of colon Active Condition [place] (SNOMED CT HCS [id number]) Diagnosis: Active Diagnosis [place] ICD-10-CM G43.009 HC S Migraine w/o aura, not intractable, w/o status migrainosuswith Provider Comments: Mixed hyperlipidemia ([facility] [id number]) Diagnosis: Active Diagnosis [place] ICD-10-CM R13.19 HCS Other dysphagiawith Provider Comments: Esophageal dysphagia ([facility] [id number]) Diagnosis: [facility] Diagnosis [facility] [place] ICD-10-CM H40.10X1 H CS Unspecified open-angle glaucoma, mild stagewith Provider Comments: open-angle glaucoma, mild stage Diagnosis: Active Diagnosis [facility] [place] ICD-10-CM H40.003 HC S Preglaucoma, unspecified, bilateralwith Provider Comments: Preglaucoma, bilateral Diagnosis: Active Diagnosis [place] ICD-10-CM H40.003 HC S Preglaucoma, unspecified, bilateralwith Provider Comments: Preglaucoma, unspecified, bilateral Diagnosis: Active Diagnosis [place] ICD-10-CM Z23 HCS Encounter for immunizationwith Provider Comments: Encounter for Immunization Medications Combined list of outpatient medications from Department of Defense and Veterans Affairs facilities. Medications provided include 1) outpatient medications from the last 15 months, and 2) patient-reported medications. Medication Details Route Status Patient Prescription Prescription Last Ordering Order Source Instructions Expires Number Dispense Provider Date Date ACETAMINOPH TAKE TWO ORALLY ACTIVE 08/06/2022 [id number] A DISHA JIANG 08/05/ [place] EN 500MG TABLETS 2 2021 [facility] TWICE A DAY NEEDED FOR PAIN *NOT TO EXCEED 4000MG IN 24 HOURS FROM ALL SOURCES* ASPIRIN TAKE ONE ORALLY ACTIVE 11/19/2022 [id number] [place] 11/18/ [place] 81MG TAB,EC TABLET 2 2021 [facility] A BY [facility]TH H[facility] EVERY DAY ATORVASTATI TAKE ONE ORALLY ACTIVE 11/19/2022 [id number] A DISHA JIANG 11/18/ [place] N CA 80MG TABLET 2 2021 [facility] AT BEDTIME CARBOXYMETH INSTILL BOTH ACTIVE 07/21/2022 [id number] R UND,PERRY 07/21/ [place] YLCELLULOSE 2 DROPS EYES 2 OLL D 2021 [facility] A NA 0.5% IN BOTH HCS SOLN,OPH EYES TWICE A DAY FOR DRY EYES CARBOXYMETH INSTILL BOTH DISCONT 02/03/2022 [id number] KAYLA KNOTT 02/03/ [place] YLCELLULOSE 2 DROPS EYES INUED 1 HARRIET S 2020 [facility] A NA 0.5% IN BOTH HCS SOLN,OPH EYES TWICE A DAY FOR DRY EYES CHOLECALCIF TAKE ONE ORALLY ACTIVE 02/10/2022 [id number] A DISHA JIANG 02/09/ [place] VINAYAK 25MCG TABLET 2 2020 [facility] (1,000UNIT) BY MOUTH HCS TAB EVERY DAY FOR VITAMIN- D DICLOFENAC APPLY 4 [place] ACTIVE 08/06/2022 [id number] AB DISHA STALLWORTH 08/05/ [place] NA 1% GRAMS LLY 2 2021 [facility] GEL,TOP TOPICALL HCS Y TWICE A DAY FOR PAINUS E DOSE CARD IN BOX TO MEASURE DOSEMA X 32 GRAMS PER DAY FROM ALL SITES APPLIED* FOR PAIN RELIEF* DICLOFENAC APPLY 4 [place] DISCONT 05/06/2021 [id number] A DISHA JIANG 05/06/ [place] NA 1% GRAMS LLY INUED 1 2020 [facility] GEL,TOP TOPICALL HCS Y TWICE A DAY FOR PAINUS E DOSE CARD IN BOX TO MEASURE DOSEMA X 32 GRAMS PER DAY FROM ALL SITES APPLIED* FOR PAIN RELIEF* MELOXICAM TAKE ONE ORALLY ACTIVE 08/06/2022 [id number] AB [place] 08/05/ [place] 15MG TAB TABLET 2 2021 [facility] BY [facility] EVERY DAY NEEDED FOR PAINTA KE WITH FOOD METOPROLOL TAKE ONE ORALLY ACTIVE 11/19/2022 [id number] [place] 11/18/ [place] SUCCINATE TABLET 2 2021 [facility] 25MG TAB,SA BY MOUTH HCS EVERY DAY MULTIVITS TAKE 1 ORALLY ACTIVE 08/06/2022 [id number] [place] 08/05/ [place] W/MINERALS TABLET 2 2021 [facility] TAB/CAP (NO BY MOUTH HCS VIT K) EVERY DAY MULTIVITS TAKE 1 ORALLY DISCONT 02/10/2022 [id number] [place] 02/09/ [place] W/MINERALS TABLET INUED 1 2020 [facility] TAB/CAP (NO BY MOUTH HCS VIT K) EVERY DAY NON VA MED USE ACTIVE KASEY GUSTAFSON 02/22/ [place] NOT LISTED RAJIV TRUONG W 2015 [facility] PRN [facility] PEG-400 INSTILL BOTH ACTIVE 08/06/2022 [id number] Sofie FIGUEROA I 08/05/ [place] 0.4%/PROPYL 1 DROP EYES 2 2021 [facility] A JERONIMO GLYCOL IN BOTH HCS 0.3% EYES SOLN,OPH FOUR TIMES A DAY NEEDED FOR DRY EYES PEG-400 INSTILL BOTH DISCONT 02/03/2022 [id number] KAYLA KNOTT 02/03/ [place] 0.4%/PROPYL 1 DROP EYES INUED 2 HARRIET S 2020 [facility] JERONIMO GLYCOL IN BOTH HCS 0.3% EYES SOLN,OPH FOUR TIMES A DAY NEEDED FOR DRY EYES PEG-400 INSTILL BOTH DISCONT 10/24/2021 [id number] HEDYR Jamar 10/26/ [place] 0.4%/PROPYL 1 DROP EYES INUE 1 HARRIET S 2020 [facility] JERONIMO GLYCOL IN BOTH HCS 0.3% EYES SOLN,OPH FOUR TIMES A DAY NEEDED FOR DRY EYE SILDENAFIL TAKE ONE ORALLY ACTIVE 08/07/2022 [id number] AB DISHA STALLWORTH 08/09/ [place] CITRATE TABLET 2 SGHINA 2021 [facility] 100MG TAB BY MOUTH HCS EVERY DAY NEEDED 1 HOUR BEFORE ANTICIPA ANNE MARIE SEXUAL ACTIVITY TIMOLOL INSTILL BOTH ACTIVE 07/21/2022 [id number] ABBY MUNOZ 08/21/ [place] MALEATE 1 DROP EYES 2 OLL D 2021 [facility] 0.5% TO BOTH HCS GEL,OPH EYES EVERY MORNING FOR GLAUCOMA TIMOLOL INSTILL BOTH DISCONT 02/03/2022 [id number] KAYLA KNOTT 02/03/ [place] MALEATE 1 DROP EYES INUED 2 S 2020 [facility] 0.5% TO BOTH HCS GEL,OPH EYES EVERY MORNING FOR GLAUCOMA TIMOLOL INSTILL BOTH DISCONT 10/24/2021 [id number] Arabella KNOTT 10/26/ [place] MALEATE 1 DROP EYES INUE 1 2020 [facility] 0.5% TO BOTH HCS GEL,OPH EYES EVERY MORNING FOR GLAUCOMA TRAMADOL TAKE ONE ORALLY ACTIVE 05/21/2022 [id number] [place] DISHA 11/18/ [place] HCL 50MG TABLET 2 SGHINA 2021 [facility] TAB BY M[facility]TH [facility] FOUR TIMES A DAY TRAVOPROST INSTILL BOTH ACTIVE 07/21/2022 [id number] VICKY MUNOZ 07/21/ [place] Z 0.004% 1 DROP EYES 2 OLL D 2021 [facility] SOLN,OPH IN BOTH HCS EYES AT BEDTIME FOR GLAUCOMA TRAVOPROST INSTILL BOTH DISCONT 02/03/2022 [id number] KAYLA TIPTON 03/27/ [place] Z 0.004% 1 DROP EYES INUED 2 HARRIET S 2021 [facility] SOLN,OPH IN BOTH HCS EYES AT BEDTIME FOR GLAUCOMA TRAVOPROST INSTILL BOTH DISCONT 05/02/2021 [id number] ROMULO R,ME 05/04/ [place] Z 0.004% 1 DROP EYES INUE 1 CAITLIN K 2020 [facility] SOLN,OPH IN BOTH HCS EYES AT BEDTIME VANICREAM APPLY TOPICA ACTIVE 08/06/2022 [id number] [place] 08/05/ [place] THIN LLY 2 SGHINA 2021 [facility] LAYER [facility] TWICE A DAY FOR DRY SKIN VANICREAM APPLY TOPICA DISCONT 05/06/2021 [id number] [place] 05/06/ [place] THIN LLY INUED 1 SGHINA 2020 [facility] L[facility] TWICE A DAY FOR DRY SKIN Immunizations Combined list of available immunizations from the Department of Defense and Veterans Affairs facilities. 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 COVID-19 3 complet PFR; [place] (PFIZER), 2020 ed [id number]; [place] [facility] MRNA, LNP-S, 02 HCS PF, 30 1 MCG/0.3 ML DOSE INFLUENZA, complet [place] INJECTABLE, 2020 ed [facility] [place] [facility] QUADRIVALENT, HCS PRESERVATIVE FREE COVID-19 2 complet PFR; [place] (PFIZER), 2020 ed [id number]; [place] MRNA, LNP-S, 02 HCS PF, 30 1 MCG/0.3 ML DOSE COVID-19 1 complet PFR; [place] (PFIZER), 2020 ed [id number]; [place] MRNA, LNP-S, 02 HCS PF, 30 1 MCG/0.3 ML DOSE ZOSTER 2 complet [place] RECOMBINANT 2019 ed [facility] INFLUENZA, complet [place] SEASONAL, 2018 ed [facility] INJECTABLE, HC S PRESERVATIVE FREE ZOSTER 1 complet [place] RECOMBINANT 2018 ed [facility] INFLUENZA, complet [place] SEASONAL, 2018 ed [facility] INJECTABLE, HC S PRESERVATIVE FREE INFLUENZA, complet [place] HIGH DOSE 2017 ed [facility] SEASONAL [facility] INFLUENZA, complet [place] HIGH DOSE 2016 ed [facility] SE[facility] INFLUENZA, complet [place] SEASONAL, 2014 ed [facility] INJECTABLE, HC S PRESERVATIVE FREE PNEUMOCOCCAL complet Wy[facility] h [place] CONJUGATE PCV 2015 ed [id number] [facility] 13 05/20 HCS INFLUENZA, complet [place] UNSPECIFIED 2013 ed [facility] FORMULATION [facility] INFLUENZA, complet [place] UNSPECIFIED 2012 ed [facility] FORM[facility] TDAP complet GlaxoSmit M [place] 2012 ed hKline [facility] [facility] 4G995 [facility] 04/26/15 ZOSTER LIVE complet [employer] and [place] 2011 ed Co. [facility] 0237[facility] [id number] TD(ADULT) complet M [place] UNSPECIFIED 2008 ed [facility] FORM[facility] PNEUMOCOCCAL, complet [place] UNSPECIFIED 2008 ed [facility] Results Combined list of recent chemistry, hematology and other laboratory results from Department of Defense and Veterans Affairs, ranging from 15 months to all on record, depending upon the facility. Order Results Value Reference Date Interpretation Specimen Commen ts Source Name Range TSH THYROTROPIN 3.83 0.35 - 08/05 Specimen Typ e: PLASMA [place] W/REFLEX [UNITS/VOLU 4.94 No comment entered. IS [facility] TO FREE ME] IN Ordering Provid er: ISACC FIGUEROA T4 SERUM OR Report Release d Date/Time: July 22, 2020 04:13 PM PLASMA Reporting Lab: [facility] [place] [address] Performing Lab: [facility] [place] [address] BASIC CREATININE 0.8 0.7 - 1.2 08/05 Specimen Ty pe: PLASMA [place] METABOLIC [MASS/VOLUM No comment entered. IS [facility] PANEL+MG E] IN SERUM Ordering P rovider: ISACC FIGUEROA OR PLASMA Report Releas ed Date/Time: July 22, 2020 04:13 PM Reporting Lab: [facility] [place] [address] Performing Lab: [facility] [place] [address] BASIC UREA 19 8 - 26 08/05 Specimen Type: P LASMA [place] METABOLIC NITROGEN /2021 No comment en tered. IS [facility] PANEL+MG [MASS/VOLUM Ordering P rovider: ISACC FIGUEROA E] IN SERUM Report Rele ased Date/Time: July 22, 2020 04:13 PM OR PLASMA Reporting Lab : [facility] [address] [place] [address] Performing Lab: [facility] [address] [place] [address] BASIC GLUCOSE 101 74 - 100 06/ H Specimen Type: PLASMA [place] METABOLIC [MASS/VOLUM /2021 No comment entered. IS [facility] PANEL+MG E] IN SERUM Ordering P rovider: ISACC FIGUEROA OR PLASMA Report Releas ed Date/Time: July 22, 2020 04:13 PM Reporting Lab: [facility] [place] [address] Performing Lab: [facility] [place] [address] BASIC SODIUM 138 136 - 145 08/05 Specimen Type: PLASMA [place] METABOLIC [MOLES/VOLU /2021 No comment entered. IS [facility] PANEL+MG ME] IN Ordering Provi major: HENRYISACC SERUM OR Report Release d Date/Time: July 22, 2020 04:13 PM PLASMA Reporting Lab: [facility] [place] [address] Performing Lab: [facility] [address] BASIC POTASSIUM 4.6 3.5 - 5.1 08/05 Specimen Typ e: PLASMA [place] METABOLIC [MOLES/VOLU /2021 No comment entered. IS [facility] PANEL+MG ME] IN Ordering Provi major: HENRYALEINA SERUM OR Report Release d Date/Time: July 22, 2020 04:13 PM PLASMA Reporting Lab: [facility] [address] [facility] [address] Performing Lab: [facility] [address] [facility] [address] BASIC CHLORIDE 103 98 - 107 08/05 Specimen Type: PLASMA [place] METABOLIC [MOLES/VOLU /2021 No comment entered. IS [facility] PANEL+MG ME] IN Ordering Provi major: HENRYISCAC SERUM OR Report Release d Date/Time: July 22, 2020 04:13 PM PLASMA Reporting Lab: [facility] [address] [place] [address] Performing Lab: [facility] [address] [place] [address] BASIC CARBON 28 22 - 29 08/05 Specimen Type: P LASMA [place] METABOLIC DIOXIDE, /2021 No comment en tered. IS [facility] PANEL+MG TOTAL Ordering Provi major: ISACC FIGUEROA [MOLES/VOLU Report Rele ased Date/Time: July 22, 2020 04:13 PM ME] IN Reporting Lab: [facility] SERUM OR [address] [facility] [address] PLASMA Performing Lab: [facility] [address] [place] [address] BASIC CALCIUM 9.3 8.4 - 10.2 08/05 Specimen Type : PLASMA [place] METABOLIC [MASS/VOLUM /2021 No comment entered. IS [facility] PANEL+MG E] IN SERUM Ordering P rovider: ISACC FIGUEROA OR PLASMA Report Releas ed Date/Time: July 22, 2020 04:13 PM Reporting Lab: [facility] [place] [address] Performing Lab: [facility] [place] [address] BASIC MAGNESIUM 2.1 1.6 - 2.6 08/05 Specimen Typ e: PLASMA [place] METABOLIC [MASS/VOLUM /2021 No comment entered. IS [facility] PANEL+MG E] IN SERUM Ordering P rovider: ISACC FIGUEROA OR PLASMA Report Releas ed Date/Time: July 22, 2020 04:13 PM Reporting Lab: [facility] [address] [place] [address] Performing Lab: [facility] [address] [place] [address] BASIC ANION GAP 7 5 - 15 08/05 Specimen Type: PLASMA [place] METABOLIC IN SERUM OR /2021 No comment entered. IS [facility] PANEL+MG PLASMA Ordering Provi major: ISACC FIGUEROA Report Released Date/Time: July 22, 2020 04:13 PM Reporting Lab: [facility] [address] [place] [address] Performing Lab: [facility] [address] [place] [address] BASIC CREAT >90 60 08/05 Specimen Type: P LASMA [place] METABOLIC EGFR(CKD-EP /2021 No comment entered. IS [facility] PANEL+MG I) Ordering Provi major: ISACC FIGUEROA Report Released Date/Time: July 22, 2020 04:13 PM Reporting Lab: [facility] [address] [facility] [address] Performing Lab: [facility] [place] [address] CBC & LEUKOCYTES 6.37 4.0 - 11.0 08/05 Specimen T ype: BLOOD [place] DIFF [#/VOLUME] /2021 Comment: Aut omated Differential Performed IS [facility] IN BLOOD BY Ordering Pr ovider: ISACC FIGUEROA AUTOMATED Report Releas ed Date/Time: July 22, 2020 04:13 PM COUNT Reporting Lab: [facility] [address] [facility] [address] Performing Lab: [facility] [address] [facility] [address] CBC & ERYTHROCYTE 5.42 4.6 - 6.2 08/05 Specimen T ype: BLOOD [place] DIFF S /2021 Comment: Automa anne marie Differential Performed IS [facility] [#/VOLUME] Ordering Pro vider: ISACC FIGUEROA IN BLOOD BY Report Rele ased Date/Time: July 22, 2020 04:13 PM AUTOMATED Reporting Lab : [facility] COUNT [address] [facility] [address] Performing Lab: [facility] [address] [facility] [address] CBC & HEMOGLOBIN 16.7 13.5 - 08/05 Specimen Type : BLOOD [place] DIFF [MASS/VOLUM 17.9 /2021 Comment: Au tomated Differential Performed [facility] E] IN BLOOD Ordering Pr ovider: ISACC FIGUEROA Report Released Date/Time: July 22, 2020 04:13 PM Reporting Lab: [facility] [address] [facility] [address] Performing Lab: [facility] [address] [facility] [address] CBC & HEMATOCRIT 50.1 41 - 54 08/05 Specimen Type : BLOOD [place] DIFF [VOLUME /2021 Comment: Automa anne marie Differential Performed [facility] FRACTION] Ordering Prov ider: ISACC FIGUEROA OF BLOOD BY Report Rele ased Date/Time: July 22, 2020 04:13 PM AUTOMATED Reporting Lab : [place] [facility] [place] [address] Performing Lab: [facility] [address] [facility] [address] CBC & MCV 92.4 80 - 100 08/05 Specimen Type: BLOOD [place] DIFF [ENTITIC /2021 Comment: Autom ated Differential Performed [facility] VOLUME] BY Ordering Pro vider: ISACC FIGUEROA AUTOMATED Report Releteetee ed Date/Time: July 22, 2020 04:13 PM COUNT Reporting Lab: [facility] [address] [facility] [address] Performing Lab: [facility] [address] [facility] [address] CBC & MCH 30.8 27 - 33 08/05 Specimen Type: B LOOD [place] DIFF [ENTITIC /2021 Comment: Autom ated Differential Performed [facility] MASS] BY Ordering Provi major: ISACC FIGUEROA AUTOMATED Report Releteetee ed Date/Time: July 22, 2020 04:13 PM COUNT Reporting Lab: [facility] [address] [facility] [address] Performing Lab: [facility] [address] [facility] [address] CBC & MCHC 33.3 32.0 - 08/05 Specimen Type: B LOOD [place] DIFF [MASS/VOLUM 37.5 /2021 Comment: Au tomated Differential Performed [facility] E] BY Ordering Provid er: ISACC FIGUEROA AUTOMATED Report Releteetee ed Date/Time: July 22, 2020 04:13 PM COUNT Reporting Lab: [facility] [address] [facility] [address] Performing Lab: [facility] [address] [facility] [address] CBC & PLATELETS 185 150 - 400 08/05 Specimen Typ e: BLOOD [place] DIFF [#/VOLUME] /2021 Comment: Aut omated Differential Performed [facility] IN BLOOD BY Ordering Pr ovider: ISACC FIGUEROA AUTOMATED Report Releas ed Date/Time: July 22, 2020 04:13 PM COUNT Reporting Lab: [facility] [address] [facility] [address] Performing Lab: [facility] [address] [facility] [address] CBC & PLATELET 9.2 7.4 - 10.4 08/05 Specimen Typ e: BLOOD [place] DIFF MEAN VOLUME /2022 Comment: Au tomated Differential Performed [facility] [ENTITIC Ordering Provi major: ALE FIGUEROAINA VOLUME] IN Report Relea sed Date/Time: July 22, 2020 04:13 PM BLOOD BY Reporting Lab: [facility] AUTOMATED [address] [facility] [address] COUNT Performing Lab: [facility] [address] [place] [address] CBC & NEUTROPHILS 52.9 08/05 Specimen Typ e: BLOOD [place] DIFF / Comment: Automa anne marie Differential Performed [facility] LEUKOCYTES Ordering Pro vider: HENRY,MISGHINA IN BLOOD BY Report Rele ased Date/Time: July 22, 2020 04:13 PM MANUAL Reporting Lab: [facility] [place] [address] Performing Lab: [facility] [place] [address] CBC & LYMPHOCYTES 33.3 08/05 Specimen Typ e: BLOOD [place] DIFF / Comment: Automa anne marie Differential Performed [facility] LEUKOCYTES Ordering Pro vider: HENRYMYAGHINA IN BLOOD BY Report Rele ased Date/Time: July 22, 2020 04:13 PM MANUAL Reporting Lab: [facility] [place] [address] Performing Lab: [facility] [place] [address] CBC & MONOCYTES/1 10.7 08/05 Specimen Typ e: BLOOD [place] DIFF Comment: Automa anne marie Differential Performed [facility] LEUKOCYTES Ordering Pro vider: HENRYMYAGHINA IN BLOOD BY Report Rele ased Date/Time: July 22, 2020 04:13 PM AUTOMATED Reporting Lab : [facility] [place] [address] Performing Lab: [facility] [address] [facility] [address] CBC & EOSINOPHILS 1.4 06 Specimen Typ e: BLOOD [place] DIFF / Comment: Automa anne marie Differential Performed [facility] LEUKOCYTES Ordering Pro vider: HENRYMYAGHINA IN BLOOD BY Report Rele ased Date/Time: July 22, 2020 04:13 PM AUTOMATED Reporting Lab : [facility] [place] [address] Performing Lab: [facility] [address] [facility] [address] CBC & BASOPHILS/1 0.9 08/05 Specimen Typ e: BLOOD [place] DIFF Comment: Automa anne marie Differential Performed [facility] LEUKOCYTES Ordering Pro vider: ISACC FIGUEROA IN BLOOD BY Report Efe ased Date/Time: July 22, 2020 04:13 PM MANUAL Reporting Lab: [facility] [address] [facility] [address] Performing Lab: [facility] [address] [facility] [address] CBC & ERYTHROCYTE 13.4 11.5 - 08/05 Specimen Typ e: BLOOD [place] DIFF DISTRIBUTIO 14.5 Comment: Au tomated Differential Performed IS [facility] N WIDTH Ordering Provid er: ISACC FIGUEROA [RATIO] BY Report Bright sed Date/Time: July 22, 2020 04:13 PM AUTOMATED Reporting Lab : [facility] [address] [facility] [address] Performing Lab: [facility] [address] [facility] [address] CBC & LYMPHOCYTES 2.12 1.0 - 4.0 08/05 Specimen T ype: BLOOD [place] DIFF [#/VOLUME] /2021 Comment: Aut omated Differential Performed [facility] IN BLOOD BY Ordering Pr ovider: ISACC FIGUEROA AUTOMATED Report Releas ed Date/Time: July 22, 2020 04:13 PM COUNT Reporting Lab: [facility] [address] [facility] [address] Performing Lab: [facility] [address] [facility] [address] CBC & MONOCYTES 0.68 0.1 - 1.0 08/05 Specimen Typ e: BLOOD [place] DIFF [#/VOLUME] /2021 Comment: Aut omated Differential Performed [facility] IN BLOOD BY Ordering Pr ovider: ISACC FIGUEROA AUTOMATED Report Releas ed Date/Time: July 22, 2020 04:13 PM COUNT Reporting Lab: [facility] [address] [facility] [address] Performing Lab: [facility] [address] [facility] [address] CBC & NEUTROPHILS 3.37 2.0 - 7.7 08/05 Specimen T ype: BLOOD [place] DIFF [#/VOLUME] /2021 Comment: Aut omated Differential Performed [facility] IN BLOOD BY Ordering Pr ovider: ISACC FIGUEROA AUTOMATED Report Releas ed Date/Time: July 22, 2020 04:13 PM COUNT Reporting Lab: [facility] [place] [address] Performing Lab: [facility] [place] [address] CBC & EOSINOPHILS 0.09 0 - 0.5 08/05 Specimen Typ e: BLOOD [place] DIFF [#/VOLUME] /2021 Comment: Aut omated Differential Performed [facility] IN BLOOD BY Ordering Pr ovider: ISACC FIGUEROA AUTOMATED Report Releas ed Date/Time: July 22, 2020 04:13 PM COUNT Reporting Lab: [facility] [address] [facility] [id number] Performing Lab: [facility] [address] [place] [id number] CBC & BASOPHILS 0.06 0 - 0.2 08/05 Specimen Type: BLOOD [place] DIFF [#/VOLUME] /2021 Comment: Aut omated Differential Performed IS [facility] IN BLOOD BY Ordering Pr ovider: ISACC FIGUEROA AUTOMATED Report Releas ed Date/Time: July 22, 2020 04:13 PM COUNT Reporting Lab: [facility] [place] [id number] Performing Lab: [facility] [place] [id number] CBC & IG(META,MYE 0.8 08/05 Specimen Typ e: BLOOD [place] DIFF LO,PRO) /2021 Comment: Automa anne marie Differential Performed IS [facility] Ordering Provid er: ISACC FIGUEROA Report Released Date/Time: July 22, 2020 04:13 PM Reporting Lab: [facility] [place] [id number] Performing Lab: [facility] [address] [facility] [phone] CBC & IMMATURE 0.05 0 - 0.1 08/05 Specimen Type: BLOOD [place] DIFF GRANULOCYTE /2021 Comment: Au tomated Differential Performed IS [facility] S Ordering Provid er: ISACC FIGUEROA [PRESENCE] Report Relea sed Date/Time: July 22, 2020 04:13 PM IN BLOOD BY Reporting L ab: [facility] AUTOMATED ONE [facility] [place]NOTE 2] [facility] [id number] COUNT Performing Lab: [facility] [address] [facility] [address] Vital Signs Combined list of inpatient and outpatient Vital Signs from Department of Defense and Veterans Affairs, ranging from 12 months to all on record, depending upon the facility. Vital Sign Value Date Comments Source SYSTOLIC BLOOD PRESSURE 117 11/18/2021 09:48:09 [facility] DIASTOLIC BLOOD PRESSURE 70 11/18/2021 09:48:09 [facility] PULSE OXIMETRY 95% 11/18/2021 09:48:09 [facility] WEIGHT 213 11/18/2021 09:48:09 [facility] BMI 27kg/m2 11/18/2021 09:48:09 [facility] [facility] PAIN 4 11/18/2021 09:48:09 [facility] HEIGHT 74.5 11/18/2021 09:48:09 [facility] [facility] TEMPERATURE 96.2 11/18/2021 09:48:09 [facility] [facility] PULSE 77 11/18/2021 09:48:09 [facility] RESPIRATION 16 11/18/2021 09:48:09 [facility] [facility] SYSTOLIC BLOOD PRESSURE 147 08/05/2021 11:26:53 [place] [facility] DIASTOLIC BLOOD PRESSURE 83 08/05/2021 11:26:53 [place] [facility] PULSE OXIMETRY 98% 08/05/2021 11:26:53 [facility] WEIGHT 216.6 08/05/2021 11:26:53 [facility] [facility] BMI 27kg/m2 08/05/2021 11:26:53 [facility] [facility] PAIN 3 08/05/2021 11:26:53 [facility] [facility] TEMPERATURE 98 08/05/2021 11:26:53 [facility] [facility] PULSE 85 08/05/2021 11:26:53 [place] [facility] RESPIRATION 19 08/05/2021 11:26:53 [facility] [facility] Encounters Combined list of: 1) Encounters from Department of Veterans Affairs facilities going back up to the last 18 months. 2) Encounters from the Department of Defense facilities going back up to 280 months. Location Location Encounter Encounter Reason Attending ADM DC Stat us Disposition Source Details Type Number For Provider Date Date Visit Outpatient [id number] [place], 07/20 [place] [facility] [id number] [facility] 89584-2.61 07/21 [place] Encounter [id number] /2020 [facility] Outpatient 04108-4.61 Keith RUST 07/21 [place] Encounter [id number] ERRY /2020 [facility] OFFICE O/P 68686-4.61 Diagnos HENRY,MIS 07/22 [place] EST LOW [id number] is: GHINA /2020 [facility] 20-29 MIN ICD-10- HCS CM R13.19 Other dysphag ia
with Provide r Comment s: Esophag eal dysphag ia (SCT [id number]) OFFICE O/P 98670-9. Diagnos LINNEA KNOTT 10/23 [place] EST MOD [id number] is: ER S /2020 [facility] 30-39 MIN ICD-10- HCS CM H40.003 Preglau coma, unspeci fied, bilater al
with Provide r Comment s: Preglau coma, bilater al IMMUNIZATI 96135-1.61 Diagnos VIJAY,SIMMONS 12/21 [place] ADMIN [id number] is: DI L [facility] ICD-10- HCS CM Z23 Encount er for immuniz ation<b r/>with Provide r Comment s: Encount er for Immuniz ation VISUAL 12261-6.61 Diagnos [id number] is: ,ARPIT [facility] EXAMINATIO ICD-10- L HCS N(S) CM H40.003 Preglau coma, unspeci fied, bilater al
with Provide r Comment s: Preglau coma, unspeci fied, bilater al OFFICE O/P 50523-4.61 Diagnos LINNEA KNOTT 02/02 [place] EST MOD [id number] is: ER S /2020 [facility] 30-39 MIN ICD-10- HCS CM H40.003 Preglau coma, unspeci fied, bilater al
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
with Provide r Comment s: Esophag eal dysphag ia (SCT [id number] 9) Outpatient 49316-8.61 SMITH,AND 11/05 [place] Encounter [id number] MARGARITA A /2021 [facility] Outpatient 42522-7.61 MARC,SA 11/05 [place] Encounter [id number] RA R /2021 [facility] Outpatient 39350-8.65 11/10 ST. 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
with Provide r Comment s: Mixed hyperli pidemia (SCT [id number] 03) Outpatient 62502-0.65 11/19 ST. Encounter [id number] /2021 [facility] Social History Combined list of available smoking, tobacco, and other social history from [facility]. Social History Type Response Date Comment Source Tobacco smoking status [place]-TOBACCO NEVER USED 08/05/2021 [facility] NHIS History of tobacco use [place]-TOBACCO QUIT 15 YRS 12/25/2018 [facility] OR MORE History of tobacco use [place]-TOBACCO NEVER USED 12/14/2017 [facility] History of tobacco use FORMER TOBACCO USER 7Y 12/22/2016 [facility] History of tobacco use LIFETIME NON-TOBACCO 01/20/2016 [facility] USER History of tobacco use FORMER TOBACCO USER 7Y 01/08/2015 [facility] History of tobacco use FORMER TOBACCO USER 7Y 01/01/2014 [facility] History of tobacco use FORMER TOBACCO USER 7Y 04/01/2010 [facility] Plan of Care List of future care activities from Department [facility] facilities. Additional future care activities may be listed in the Assessment and Plan section. Date/Time Care Activity Care Activity Detail Facility 12/07/2021 AMBULATORY - REHAB MEDICINE AMBULATORY - REHAB [facility] Advance Directives List of completed, amended, or rescinded Advance Directives on record at Department [facility] facilities. An actual copy of the Directive is not included. Date Advance Directive Provider Source 01/02/2014 ADVANCE DIRECTIVE KATARZYNA LINCOLN [facility] 01/02/2014 ADVANCE DIRECTIVE DISCUSSION KATARZYNA LINCOLN [facility]
--- OUTSIDE RECORDS SUMMARY | 2021-11-22 12:52 | XMS_ITS | Encounter Summary ---
:1940 Author Organization Department [facility] Address [address] [place] [address] Support Name Relationship Address Phone YAAKA BRADFORD Unavailable [phone] [email or web address] [address] AYAKA BRADFORD Unavailable [address] [place] [address] Insurance Providers: All historical and current Section Date Range: From patient's date of to the date document was created.This section includes the names of all active insurance providers for the patient. Insurance Type of Plan Start of End of Group Member Insurance Policy P atjose's Provider Coverage Name Policy Policy Number ID Provider's Edwards's Relationship Coverage Coverage Telephone Name to Policy Number Edwards [place] MED[place]ARE MCR Mar 06, [id number] Arabella BRADFORD [facility] (WNR) ADVANTAGE (WNR) 2019 5 [id number] [phone] MELANIE 1 MEDICARE MEDICARE PART Oct 04, PART A [id number] 800 Arabella BRADFORD (WNR) (M) A 2007 94A [phone] MELANIE MEDICARE MEDICARE PART Oct 04, PART B [id number] 800 Arabella BRADFORD (WNR) (M) B 2007 94A [phone] MELANIE Selected Encounter This section includes the information on record at NE for the Encounter. Date/Time Encounter Type Encounter Reason Provider Source Description Feb 02, 2021 VISUAL FIELD OPHTHALMOLOGY ICD-10-CM FLAVIA MONGE 01:40 PM EXAMINATION(S) H40.003 PHANIE L Preglaucoma, unspecified, bilateral with Provider Comments: Preglaucoma, unspecified, bilateral IHE Encounter Template Text not used by [facility] Assessments - Encounter Diagnoses This section includes the primary and secondary diagnoses documented for the Encounter. Date/Time Primary/Secondary Diagnosis Name Provider Source Diagnosis Feb 02, 2021 PRIMARY Preglaucoma, [place]OS,FLAVIA MOULTON V A 02:16 PM unspecified, PHANIE L [facility] bilateral Plan of Treatment: Future Appointments (+ 6 months) and Future Tests (+/- 45 days) The Plan of Treatment section includes future care activities for the patient from [facility] This section includes future appointments and future orders which are active, pending orscheduled.Future Appointments This section includes appointments that were scheduled to occur 6 months from the date of the Encounter, up to a maximum of 20 appointments. The data comes from all [facility]. Appointment Date/Time Appointment Type Appointment Facili ty Name July 20, 2021 09:40 AM AMBULATORY - SURGERY [facility] S Active, Pending, and Scheduled Orders This section includes a listing of several types of active, pending, and scheduled orders, including clinic medications orders, diagnostic test orders, procedure orders and consult orders; where the start date of the order is 45 days before the date of the Encounter or 45 days after the date of the Encounter. The data comes from all [facility]. Test Date/Time Test Type Test Details Facility Name Jan 16, 2021 12:00 AM Laboratory - Chemistry BASIC METABOLIC [facility] Order PANEL+MG PLASMA SP ONCE Jan 16, 2021 12:00 AM Laboratory - Chemistry CALCIUM PLASMA SP [facility] Order Jan 16, 2021 12:00 AM Laboratory - Chemistry ALBUMIN PLASMA SP [facility] Order Jan 16, 2021 12:00 AM Laboratory - Chemistry CBC BLOOD SP [facility] Order Jan 16, 2021 12:00 AM Laboratory - Chemistry TSH W/REFLEX TO DIYA E [facility] Order T4 PLASMA SP Social History: Smoking Status (Most current) and Tobacco Use (All prior to encounter date) This section includes the most current, and the historical, smoking and tobacco-related health factors from the NE facility where the Encounter took place.Current Smoking Status This section includes the most current smoking, or tobacco-related health factor, from the NE facility where the Encounter took place. Date/Time Current Smoking Status Comment Facility Dec 25, 2018 09:57 AM VA-TOBACCO QUIT 15 YRS OR MORE [facility] Tobacco Use History This section includes a history of the smoking, or tobacco- related health factors, that were collected on or before the date of the Encounter. The data comes from the NE facility where the Encounter took place. Date/Time Smoking Status/Tobacco Use Comment Facil ity Dec 25, 2018 09:57 AM NE-TOBACCO QUIT 15 YRS OR MORE [facility] Dec 14, 2017 09:11 AM VA-TOBACCO NEVER USED [facility] Dec 22, 2016 10:22 AM FORMER TOBACCO USER 7Y OR GREATER [facility] Jan 20, 2016 10:51 AM LIFETIME NON-TOBACCO USER [facility] Jan 08, 2015 10:35 AM FORMER TOBACCO USER 7Y OR GREATER [facility] Jan 01, 2014 04:02 PM FORMER TOBACCO USER 7Y OR GREATER [facility] Apr 01, 2010 10:12 AM FORMER TOBACCO USER 7Y OR GREATER [facility] Advance Directives: All historical and current Section Date Range: From patient's date of to the date document was created. This section includes ALL of a patient's completed or amended [place] Advance and Rescinded Directives. The entries below indicate that a directive exists for the patient, but an actual copy is not included with this document. The data comes from all [place] facilities. Date Advance Directives Provider Source Jan 02, 2014 ADVANCE DIRECTIVE KATARZYNA LINCOLN [facility] Jan 02, 2014 ADVANCE DIRECTIVE DISCUSSION KATARZYNA LINCOLN [facility] Encounter Notes: All associated encounter notes This section contains the clinical notes associated to the Encounter. Date/Time Encounter Note(s) Provider Source Feb 02, 2021 02:16 PM COMPUTER PERIPHERAL EQUIPMENT OPERATOR NOTE: ARPIT MONGE [facility] LOCAL TITLE: COMPUTER PERIPHERAL EQUIPMENT OPERATOR NOTE L STANDARD TITLE: COMPUTER PERIPHERAL EQUIPMENT OPERATOR NOTE DATE OF NOTE: FEB 02, 2021@14:16 ENTRY DATE: FEB 02, 2021@14:16:04 AUTHOR: LAURA MONGE EXP COSIGNER: URGENCY: STATUS: COMPLETED HVFT 24-2c jaleel faster OU Good cooperation, fixation, reliablity DAYAMI /es/ ARPIT MONGE HEALTH PACKAGING ASSEMBLER Signed: 02/02/2021 14:16
--- OUTSIDE RECORDS SUMMARY | 2021-11-22 12:52 | XMS_ITS | Encounter Summary ---
:[address] [facility] Address [address] [place] [address] Support Name Relationship Address Phone AYAKA STOREY Unavailable [phone] [place] [address] AYAKA STOREY Unavailable [address] [place] [address] Insurance Providers: All historical and current Section Date Range: From patient's date of to the date document was created.This section includes the names of all active insurance providers for the patient. Insurance Type of Plan Start of End of Group Member Insurance Policy P atjose's Provider Coverage Name Policy Policy Number ID Provider's Edwards's Relationship Coverage Coverage Telephone Name to Policy Number Edwards MEDICARE MEDICARE PART Oct 04, PART A [id number] 800 Arabella STOREY (WNR) (M) A 2007 94Z [phone] MELANIE MEDICARE MEDICARE PART Oct 04, PART B [id number] 800 Arabella STOREY (WNR) (M) B 2007 [id number] [phone] MELANIE Selected Encounter This section includes the information on record at OR for the Encounter. Date/Time Encounter Type Encounter Reason Provider Source Description Nov 05, 2021 03:53 Outpatient PRIMARY AXEL SMITH Encounter CARE/MEDICINE E Encounter Template Text not used by OR Plan of Treatment: Future Appointments (+ 6 months) and Future Tests (+/- 45 days) The Plan of Treatment section includes future care activities for the patient from all [place] treatmentfacilities. This section includes future appointments and future orders which are active, pending orscheduled.Future Appointments This section includes appointments that were scheduled to occur 6 months from the date of the Encounter, up to a maximum of 20 appointments. The data comes from all [place] treatment facilities. Appointment Date/Time Appointment Type Appointment Facili ty Name Jan 17, 2022 02:00 PM AMBULATORY - SURGERY [facility] S Social History: Smoking Status (Most current) and Tobacco Use (All prior to encounter date) This section includes the most current, and the historical, smoking and tobacco-related health factors from the [place] facility where the Encounter took place.Current Smoking Status This section includes the most current smoking, or tobacco-related health factor, from the [place] facility where the Encounter took place. Date/Time Current Smoking Status Comment Facility Aug 05, 2021 11:30 AM [facility] Tobacco Use History This section includes a history of the smoking, or tobacco- related health factors, that were collected on or before the date of the Encounter. The data comes from the [facility] where the Encounter took place. Date/Time Smoking Status/Tobacco Use Comment [facility] Dec 25, 2018 09:57 AM VA-TOBACCO FORMER USER [facility] Dec 25, 2018 09:57 AM [place]-TOBACCO QUIT [address] [facility] Dec 14, 2017 09:11 AM [facility] Dec 22, 2016 10:22 AM FORMER TOBACCO USER 7Y OR GRE[address] [facility] Jan 20, 2016 10:51 AM LIFETIME NON-TOBACCO USER [facility] Jan 08, 2015 10:35 AM FORMER TOBACCO USER 7Y OR [facility] [facility] Jan 01, 2014 04:02 PM FORMER TOBACCO USER 7Y OR GRE[address] [facility] Apr 01, 2010 10:12 AM FORMER TOBACCO USER 7Y OR [facility] [facility] Advance Directives: All historical and current Section Date Range: From patient's date of to the date document was created. This section includes ALL of a patient's completed or amended [place] Advance and Rescinded Directives. The entries below indicate that a directive exists for the patient, but an actual copy is not included with this document. The data comes from all [facility]. Date Advance Directives Provider Source Jan 02, 2014 ADVANCE DIRECTIVE KATARZYNA LINCOLN [facility] Jan 02, 2014 ADVANCE DIRECTIVE DISCUSSION KATARZYNA LINCOLN [facility] Encounter Notes: All associated encounter notes This section contains the clinical notes associated to the Encounter. Date/Time Encounter Note(s) Provider Source Nov 05, 2021 03:53 PM PRIMARY CARE SECURE MESSAGING: OSVALDO SMITH EA [facility] LOCAL TITLE: PRIMARY CARE SECURE MESSAGING STANDARD TITLE: PRIMARY CARE SECURE MESSAGING DATE OF NOTE: NOV 05, 2021@15:53 ENTRY DATE: NOV 05, 2021@15:53:05 AUTHOR: AXEL SMITH EXP COSIGNER: URGENCY: STATUS: COMPLETED PRIMARY CARE SECURE MESSAGING Has ADDENDA * ------Original Message Sent: 11/05/2021 03:16 PM ET From: DILAN STOREY To: [facility] Primary Care, Uzma Fuentes (Charlene) Subject: General:chest pain I think I'm dealing with ang riley but not sure. Have bad chest pain that can come and go. Was bad in bed this morning. Then settle d down got worse when when doing a little work. when it was bad I sat in re cliner and tipped back and it went away. Just went out and made a few rounds o n riding mower and its back. Relaxed awhile and it seems to be gone a gain. It's also accompanied with a lot of belching that helps. I do believe i also have a hiatal hernia that comes and goes. Can't decide how serious or non se rious this is but wondering what to do next. If I could talk to annie hameed that would be great since Gina is my primary doctor. Not sure how to get hold of him. Thanks ------Original Message Sent: 11/05/2021 04:52 PM ET From: AXEL SMITH To: DILAN STOREY Subject: General:chest pain Hi Mr. Storey, You should call the nurse triage line fo r something like this through the call center [phone]. You may be having gastric r eflux pain that could be relieved by an antacid, but it could also be annie ething more serious. I think if you are concerned you should come into the Em ergency room for evaluation. Or please call the triage nurses to better help advise you. Axel Smith RN /corrine/ AXEL SMITH RN STAFF NURSE Signed: 11/05/2021 15:53 11/05/2021 ADDENDUM STATUS: COMPLETED Attempted to reach on phone to f/u, his phone went right to . Left phone number for triage nurse and instruction th at he may walk into ER for evaluation. /corrine/ AXEL SMITH RN STAFF NURSE Signed: 11/05/2021 15:56 Receipt Acknowledged By: 11/10/2021 15:06 /corrine/ ISACC FUENTES M.D. MEDICAL STAFF 11/11/2021 ADDENDUM STATUS: COMPLETED Called and talked with Pt's spouse. Had yesterda y CABG x4, in [place]. Is out of ICU today and on the floor, doing well per . /corrine/ ISACC FUENTES M.D. MEDICAL STAFF Signed: 11/11/2021 11:38
--- OUTSIDE RECORDS SUMMARY | 2021-11-22 12:52 | XMS_ITS | Encounter Summary ---
:1940 Author Organization Department [facility] Address [address] [place] [address] Support Name Relationship Address Phone AYAKA BRADFORD Unavailable [phone] [address] AYAKA BRADFORD Unavailable [phone] [email or web address] [address] Insurance Providers: All historical and current Section Date Range: From patient's date of to the date document was created.This section includes the names of all active insurance providers for the patient. Insurance Type of Plan Start of End of Group Member Insurance Policy P atient's Provider Coverage Name Policy Policy Number ID Provider's Edwards's Relationship Coverage Coverage Telephone Name to Policy Number Edwards [place] MED[place]ARE MCR Mar 06, [id number] BRADFORD [facility] (WNR) ADVANTAGE (WNR) 2018 5 [id number] [phone] MELANIE 1 MEDICARE MEDICARE PART Oct 04, PART A [id number] 800 [address] BRADFORD (WNR) (M) A 2007 94A [phone] MELANIE MEDICARE MEDICARE PART Oct 04, PART B [id number] 800 [address]ella BRADFORD (WNR) (M) B 2007 [id number] [phone] MELANIE Selected Encounter This section includes the information on record at [place] for the Encounter. Date/Time Encounter Type Encounter Reason Provider Source Description July 20, 2021 OFFICE O/P EST OPHTHALMOLOGY ICD-10-CM JULIAN MUNOZ 09:40 AM LOW 20-29 MIN H40.10X1 D Unspecified open-angle glaucoma, mild stage with Provider Comments: open-angle glaucoma, mild stage IHE Encounter Template Text not used by [facility] Assessments - Encounter Diagnoses This section includes the primary and secondary diagnoses documented for the Encounter. Date/Time Primary/Secondary Diagnosis Name Provider Source Diagnosis July 20, 2021 PRIMARY Unspecified JULIAN MUNOZ ANYA Cortes A 11:07 AM open-angle HCS glaucoma, mild stage July 20, 2021 SECONDARY Dry eye syndrome KRYSTALJadaJULIAN Elias JUAN ANTONIO [facility] 11:07 AM of bilateral HCS lacrimal glands Plan of Treatment: Future Appointments (+ 6 months) and Future Tests (+/- 45 days) The Plan of Treatment section includes future care activities for the patient from all [place] treatmentfacilities. This section includes future appointments and future orders which are active, pending orscheduled.Future Appointments This section includes appointments that were scheduled to occur 6 months from the date of the Encounter, up to a maximum of 20 appointments. The data comes from all [place] treatment facilities. Appointment Date/Time Appointment Type Appointment Facili ty Name Aug 05, 2021 10:30 AM AMBULATORY - MEDICINE [facility] Aug 05, 2021 11:30 AM AMBULATORY - MEDICINE [facility] Nov 05, 2021 07:53 PM AMBULATORY - NONE [facility] Nov 18, 2021 09:30 AM AMBULATORY - MEDICINE [facility] Dec 07, 2021 01:00 PM AMBULATORY - REHAB MEDICINE [facility] Jan 17, 2022 02:00 PM AMBULATORY - SURGERY [facility] S Lab Results: +/- 30 days of the encounter This section includes the Chemistry and Hematology Lab Results on record with [place] for the patient. Radiology Reports and Pathology Reports are provided separately, in subsequent sections.Lab Results This section contains the Chemistry/Hematology Results that were resulted 30 days before or 30 daysafter the date of the Encounter. Date/Time Source Result Type Result - Unit Interpretation Reference Range Comment Aug 05, 2021 10:34 [facility] TSH W/REFLEX TO FREE Spec imen Type: PLASMA AM T4 No comment enter ed. Ordering Provid er: ISACC FIGUEROA Report Released Date/Time: July 22, 2020 04:13 PM Reporting Lab: [facility] [address] [facility] [id number] Performing Lab: [facility] [address] [facility] [id number] TSH 3.83 0.35-4.94 Aug 05, 2021 10:34 [facility] BASIC METABOLIC Specimen Type: PLASMA AM PANEL+MG No comment enter ed. Ordering Provid er: ISACC FIGUEROA Report Released Date/Time: July 22, 2020 04:13 PM Reporting Lab: [facility] [id number] Performing Lab: [facility] [id number] CREATININE 0.8 0.7-1.2 UREA NITROGEN 19 8-26 GLUCOSE 101 H 74-100 SODIUM 138 136-145 POTASSIUM 4.6 3.5-5.1 CHLORIDE 103 98-107 CO2 28 22-29 CALCIUM 9.3 8.4-10.2 MAGNESIUM 2.1 1.6-2.6 ANION GAP 7 5-15 CREAT EGFR(CKD-EPI) >90 >60 Aug 05, 2021 10:[address] [facility] CBC & DIFF Specim en Type: BLOOD Comment: Automa henry Differential Performed Ordering Provid er: ISACC FIGUEROA Report Released Date/Time: July 22, 2020 04:13 PM Reporting Lab: [facility] [id number] Performing Lab: [facility] [id number] WBC 6.37 4.0-11.0 RBC 5.42 4.6-6.2 HGB 16.7 13.5-17.9 HCT 50.1 41-54 MCV 92.4 80-100 MCH 30.8 27-33 MCHC 33.3 32.0-37.5 PLT 185 150-400 MPV 9.2 7.4-10.4 NEUT 52.9 LYMPHS 33.3 MONO 10.7 EOSINO 1.4 BASO 0.9 RDW 13.4 11.5-14.5 ABS LYMPH 2.12 1.0-4.0 ABS MONO 0.68 0.1-1.0 ABS NEUT 3.37 2.0-7.7 ABS EOS 0.09 0-0.5 ABS BASO 0.06 0-0.2 IG(META,MYELO,PRO) 0.8 ABS IMMATURE GRAN 0.05 0-0.1 Social History: Smoking Status (Most current) and Tobacco Use (All prior to encounter date) This section includes the most current, and the historical, smoking and tobacco-related health factors from the [place] facility where the Encounter took place.Current Smoking Status This section includes the most current smoking, or tobacco-related health factor, from the [place] facility where the Encounter took place. Date/Time Current Smoking Status Comment Facility Dec 25, 2018 09:57 AM [place]-TOBACCO QUIT [address] [facility] Tobacco Use History This section includes a history of the smoking, or tobacco- related health factors, that were collected on or before the date of the Encounter. The data comes from the [place] facility where the Encounter took place. Date/Time Smoking Status/Tobacco Use Comment Facil ity Dec 25, 2018 09:57 AM [place]-TOBACCO QUIT [address] [facility] Dec 14, 2017 09:11 AM VA-TOBACCO NEVER USED [facility] Dec 22, 2016 10:22 AM FORMER TOBACCO USER 7Y OR [address] [facility] Jan 20, 2016 10:51 AM LIFETIME NON-TOBACCO USER [facility] Jan 08, 2015 10:35 AM FORMER TOBACCO USER 7Y OR [facility] [facility] Jan 01, 2014 04:02 PM FORMER TOBACCO USER 7Y OR [facility] [facility] Apr 01, 2010 10:12 AM FORMER TOBACCO USER 7Y OR [facility] [facility] Advance Directives: All historical and current Section Date Range: From patient's date of to the date document was created. This section includes ALL of a patient's completed or amended [place] Advance and Rescinded Directives. The entries below indicate that a directive exists for the patient, but an actual copy is not included with this document. The data comes from all [facility]. Date Advance Directives Provider Source Jan 02, 2014 ADVANCE DIRECTIVE KATARZYNA LINCOLN [facility] Jan 02, 2014 ADVANCE DIRECTIVE DISCUSSION KATARZYNA LINCOLN [facility] Encounter Notes: All associated encounter notes This section contains the clinical notes associated to the Encounter. Date/Time Encounter Note(s) Provider Source July 20, 2021 11:00 AM OPHTHALMOLOGY ATTENDING NOTE: JULIAN MUNOZ [facility] LOCAL TITLE: OPHTHALMOLOGY CLINIC NOTE STANDARD TITLE: OPHTHALMOLOGY ATTENDING NOTE DATE OF NOTE: JULY 20, 2021@11:00 ENTRY DATE: JULY 20, 2021@11:00:47 AUTHOR: JULIAN MUNOZ EXP COSIGNER: URGENCY: STATUS: COMPLETED Pt here for VT and 24-2 today. Has OAG controlle d with travaprost qHS OU and timolol qAM OU. Also gets art tears from us for his dry eyes. No new issues. Pigment Pumper notes reviewed and agreed with. EXAM: Visual Robertson Reviewed 24-2: WNL OU IOPs: 17/15 Mental Status: Orientation to time and place: No rmal Mood, affect: Appropriate Assessment: Problem 1: OAG OU-mild stage. IOPs excellent. Field s WNL. Stable. Continue Travaprost qHS OU and timolol qAM OU. Renewed Rxs. Monitor. Problem 2: Hx of dry eyes. Continue art tears. Renewed Rx. Monitor. Problem 3: Did not assess other eye problems today. Plan: Return to Clinic: [address] Munoz Return orders: Vision, IO tension, Dilate, M ref raction, Special instructions rNFL next visit. Continue present medications. /corrine/ JULIAN MUNOZ MD STAFF UTILITIES MANAGER Signed: 07/20/2021 11:07 July 20, 2021 09:58 AM NOTCHER NOTE: TIFFANY ROSARIO V [facility] LOCAL TITLE: NOTCHER NOTE STANDARD TITLE: NOTCHER NOTE DATE OF NOTE: JULY 20, 2021@09:58 ENTRY DATE: JULY 20, 2021@09:58:47 AUTHOR: TIFFANY ROSARIO V EXP COSIGNER: URGENCY: STATUS: COMPLETED HVF 24-2 C LEBRON Faster completed today During the test: OD: Good fixation, good cooperation, and good re liability OS: Good fixation, good cooperation, and good re liability /corrine/ TIFFANY ROSARIO NOTCHER Signed: 07/20/2021 10:00 July 20, 2021 09:37 AM NOTCHER NOTE: JENNIFER NESS [facility] LOCAL TITLE: NOTCHER NOTE STANDARD TITLE: NOTCHER NOTE DATE OF NOTE: JULY 20, 2021@09:37 ENTRY DATE: JULY 20, 2021@09:37:50 AUTHOR: PEDRO NESS EXP COSIGNER: URGENCY: STATUS: COMPLETED Eye Start Exam Patient: DILAN BRADFORD Sex: MALE SSN: [id number] Birthdate: [birth year] Chief complaint: Here for 6 month follow up- Glaucoma suspect OU. Patient states he is using his Glaucoma drops as directed. States he is current ly only using readers as needed. History of Present Illness: Location: Intensity: Duration: Active problems - Computerized Problem List is t he source for the followin. Mixed hyperlipidemia (SNOMED CT 839592465) 2. Polyp of colon (SNOMED CT 10524530) 3. Benign paroxysmal positional vertigo 4. Glaucoma 5. Esophageal dysphagia Surgeries: JUN 12, 2014 Proc: KPE IOL right eye MAY 20, 2014 Proc: KPE IOL left eye Follow Up Exam Eye Medications Timolol QAM OU, Travatan QHS OU Allergies: Patient has answered NKA No new Allergies. Last refraction: Vision: OD:SC(without glasses) OD: 20/20-2 Pinhole: 20/ Near: 20/ Vision: OS:SC(without glasses) 0S: 20/20-2 Pinhole: 20/ Near: 20/ Confrontational Robertson: Full to finger counting: Right:See HVF Left:See HVF Extra Ocular Movement: Pupils: Right: Round Left: Round Size: Right: 4 Left: 4 React to light: Right: Yes Left: Yes Afferent pupil defect: Right:No Grade: Left: No Grade: Note: Intra-ocular pressure (IOP): OD: 17 OS: 15 Applanation /es/ PEDRO NESS Health Pigment Pumper Signed: 07/20/2021 09:47
--- OUTSIDE RECORDS SUMMARY | 2021-11-22 12:52 | XMS_ITS | Encounter Summary ---
:1940 Author Organization Department [facility] Address [address] [place] [address] Support Name Relationship Address Phone AYAKA BRADFORD Unavailable [address], [place] [address] AYAKA BRADFORD Unavailable [address], [place] [address] Insurance Providers: All historical and current Section [...] Edwards [place] MED[place]ARE MCR Mar 06, [id number] BRADFORD [facility] (WNR) ADVANTAGE (WNR) 2018 5 [id number] [phone] MELANIE 1 MEDICARE MEDICARE PART Oct 04, PART A [id number] [address] BRADFORD (WNR) (M) A 2007 94A [phone] MELANIE MEDICARE MEDICARE PART Oct 04, PART B [id number] 800 [address]ella BRADFORD (WNR) (M) B 2007 94A [id number] MELANIE Selected Encounter This section includes the information on record at [place] for the Encounter. Date/Time Encounter Type Encounter Reason Provider Source Description Feb 02, 2021 OFFICE O/P EST OPHTHALMOLOGY ICD-10-CM JUVENCIO KNOTT 02:00 PM MOD 30-39 MIN H40.003 Preglaucoma, unspecified, bilateral with Provider Comments: Preglaucoma, bilateral IHE Encounter Template Text not used by [facility] Assessments - Encounter Diagnoses This section includes the primary and secondary diagnoses documented for the Encounter. 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. This section includes future appointments and future orders which are active, pending orscheduled.Future Appointments This section includes appointments that were scheduled to occur 6 months from the date of the Encounter, up to a maximum of 20 appointments. The data comes from all [place] treatment facilities. Appointment Date/Time Appointment Type Appointment Facili ty Name July 20, 2021 09:40 AM AMBULATORY - SURGERY [facility] Active, Pending, and Scheduled Orders This section includes a listing of several types of active, pending, and scheduled orders, including clinic medications orders, diagnostic test orders, procedure orders and consult orders; where the start date of the order is 45 days before the date of the Encounter or 45 days after the date of the Encounter. The data comes from all [facility]. Test Date/Time Test Type Test Details Facility Name Jan 16, 2021 12:00 AM Laboratory - Chemistry BASIC METABOLIC [facility] Order PANEL+MG PLASMA SP ONCE Jan 16, 2021 12:00 AM Laboratory - Chemistry CBC BLOOD SP [facility] Order Jan 16, 2021 12:00 AM Laboratory - Chemistry CALCIUM PLASMA SP [facility] Order Jan 16, 2021 12:00 AM Laboratory - Chemistry ALBUMIN PLASMA SP [facility] Order Jan 16, 2021 12:00 AM Laboratory - Chemistry TSH W/REFLEX TO [facility] Order T4 PLASMA SP Social History: [...] AM [place]-TOBACCO QUIT 15 YRS OR MORE [facility] Tobacco Use History This section includes a history of the smoking, or tobacco- related health factors, that were collected on or before the date of the Encounter. The data comes from the [place] facility where the Encounter took place. Date/Time Smoking Status/Tobacco Use Comment Facil ity Dec 25, 2018 09:57 AM VA-TOBACCO QUIT 15 YRS OR MORE [facility] Dec 14, 2017 09:11 AM VA-TOBACCO NEVER USED [facility] Dec 22, 2016 10:22 AM FORMER TOBACCO USER 7Y OR GREATER [facility] Jan 20, 2016 10:51 AM LIFETIME NON-TOBACCO USER [facility] Jan 08, 2015 10:35 AM FORMER TOBACCO USER 7Y OR GREATER [facility] Jan 01, 2014 04:02 PM FORMER TOBACCO USER 7Y OR GREATER [facility] Apr 01, 2010 10:12 AM FORMER TOBACCO USER Y OR GREATER [facility] Advance Directives: All historical and current [...] from all [facility]. Date Advance Directives Provider Source Jan 02, 2014 ADVANCE DIRECTIVE KATARZYNA LINCOLN [facility] Jan 02, 2014 ADVANCE DIRECTIVE DISCUSSION KATARZYNA LINCOLN [facility] Encounter Notes: All associated encounter notes This section contains the clinical notes associated to the Encounter. Date/Time Encounter Note(s) Provider Source Feb 02, 2021 02:14 PM OPHTHALMOLOGY ATTENDING NOTE: JUVENCIO KNOTT [facility] LOCAL TITLE: OPHTHALMOLOGY CLINIC NOTE STANDARD TITLE: OPHTHALMOLOGY ATTENDING NOTE DATE OF NOTE: FEB 02, 2021@14:14 ENTRY DATE: FEB 02, 2021@14:14:31 AUTHOR: JUVENCIO KNOTT EXP COSIGNER: URGENCY: STATUS: COMPLETED 80 y/o M f/u for VF and IOP check. The pt starte d TXE OU qam. I have reviewed and agree with the fork lift technician no te of today Patient is alert and oriented X3 and mood and af fect are appropriate. SLE: Ext: Nl ou LLL: Scurf ou C/S: W and Q ou K: Clear ou AC: D and Q ou Iris: R and F ou Lens: PCL OU Tr PCO Ou Ta Assessment/Plan: # Glaucoma suspect - The IOPs are controlled wit h the current tx. CCM Goal <= 19 OU. Recheck IOP and VF in 6 months. - Tm - OCT 10/24 - Nl with prog from 09/17 OD, Nl and s table from 09/17 OS - Takes Fabio OU qhs, TXE OU qam - HVF 01/24 - Non spec S and I depr LTF OD, Nons pec LTF OS -denies fhx -PACHY (prior) - 595/606 -gonio 2014: open to CB OU # CHASE - PEG qid prn. # PCL OU - Stable. # Refractive error - No MRx today. RTC: 6 months vt 24-2 LOCAL TITLE: MED CARE MANAGER NOTE STANDARD TITLE: MED CARE MANAGER NOTE DATE OF NOTE: FEB 02, 2021@13:35 ENTRY DATE: FEB 02, 2021@13:35:47 AUTHOR: BRIDGETTE JEWELL COSIGNER: URGENCY: STATUS: COMPLETED Eye Start Exam Patient: DILAN BRADFORD Sex: MALE SSN: [id number] Birthdate: [birth year] Chief complaint: Patient presents for a glaucoma follow up with H VF. Patient feels that his vision has been about the same since his last vi sit, with the OD being worse than the OS. He notes that the OD does tend to b e a little sore, but never really bothersome. Wonering if it could be relat ed to his eye drops. History of Present Illness: Location: Intensity: Duration: Active problems - Computerized Problem List is t he source for the followin. Mixed hyperlipidemia (SNOMED CT 888625635) 2. Polyp of colon (SNOMED CT 44141556) 3. Benign paroxysmal positional vertigo 4. Glaucoma 5. Esophageal dysphagia Surgeries: JUN 12, 2014 Proc: KPE IOL right eye MAY 20, 2014 Proc: KPE IOL left eye Follow Up Exam Eye Medications Timolol QAM OU Travatan QHS OU Allergies: Patient has answered NKA No new Allergies. Last refraction: Vision: OD:SC(without glasses) OD: 20 Pinhole: 20/ Near: 20/ Vision: OS:SC(without glasses) 0S: - Pinhole: -2 Near: 20/ Confrontational Robertson: Full to finger counting: Right: Yes Left: Yes Extra Ocular Movement: Normal Pupils: Right: Round Left: Round Size: Right: 5 Left: 5 React to light: Right: Yes Left: Yes Afferent pupil defect: Right:No Grade: Left: No Grade: Note: Intra-ocular pressure (IOP): OD: 16 OS: 13 Applanation /corrine/ BRIDGETTE JEWELL OPHTHALMOLOGY NICOLE MANAGER COMMERCIAL Signed: 02/02/2021 13:53 /es/ JUVENCIO KNOTT MD STAFF FEDERAL LAW CLERK Signed: 02/02/2021 14:29 Feb 02, 2021 01:35 PM MED CARE MANAGER NOTE: SEAN JEWELL [facility] LOCAL TITLE: MED CARE MANAGER NOTE STANDARD TITLE: MED CARE MANAGER NOTE DATE OF NOTE: FEB 02, 2021@13:35 ENTRY DATE: FEB 02, 2021@13:35:47 AUTHOR: BRIDGETTE JEWELL COSIGNER: URGENCY: STATUS: COMPLETED Eye Start Exam Patient: DILAN BRADFORD Sex: MALE SSN: [id number] Birthdate: [birth year] Chief complaint: Patient presents for a glaucoma follow up with H VF. Patient feels that his vision has been about the same since his last vi sit, with the OD being worse than the OS. He notes that the OD does tend to b e a little sore, but never really bothersome. Wonering if it could be relat ed to his eye drops. History of Present Illness: Location: Intensity: Duration: Active problems - Computerized Problem List is t he source for the followin. Mixed hyperlipidemia (SNOMED CT 527633243) 2. Polyp of colon (SNOMED CT 38153015) 3. Benign paroxysmal positional vertigo 4. Glaucoma 5. Esophageal dysphagia Surgeries: JUN 12, 2014 Proc: KPE IOL right eye MAY 20, 2014 Proc: KPE IOL left eye Follow Up Exam Eye Medications Timolol QAM OU Travatan QHS OU Allergies: Patient has answered NKA No new Allergies. Last refraction: Vision: OD:SC(without glasses) OD: 20/20 Pinhole: 20/ Near: 20/ Vision: OS:SC(without glasses) 0S: 20/30-1 Pinhole: 20/20-2 Near: 20/ Confrontational Robertson: Full to finger counting: Right: Yes Left: Yes Extra Ocular Movement: Normal Pupils: Right: Round Left: Round Size: Right: 5 Left: 5 React to light: Right: Yes Left: Yes Afferent pupil defect: Right:No Grade: Left: No Grade: Note: Intra-ocular pressure (IOP): OD: 16 OS: 13 Applanation /corrine/ BRIDGETTE JEWELL OPHTHALMOLOGY LURAY MANAGER COMMERCIAL Signed: 02/02/2021 13:53
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
--- OUTSIDE RECORDS SUMMARY | 2021-11-22 12:52 | XMS_ITS | Encounter Summary ---
:1940 Author Organization Department [facility] Address [address] [place] [address] Support Name Relationship Address Phone AYAKA BRADFORD Unavailable [address] [email or web address] [address] AYAKA BRADFORD Unavailable [address] [place] [address] Insurance Providers: All historical and current Section [...] MEDICARE MEDICARE PART Oct 04, PART A [id number] 800 [address]ella BRADFORD (WNR) (M) A 2007 94Q [phone] MELANIE MEDICARE MEDICARE PART Oct 04, PART B [id number] 800 Arabella BRADFORD (WNR) (M) B 2007 94A [phone] MELANIE Selected Encounter This section includes the information on record at [place] for the Encounter. Date/Time Encounter Type Encounter Reason Provider Source Description Nov 05, 2021 07:53 Outpatient ADMIN PAT ACTIVTIES MIGUEL ÁNGEL TRAN PM Encounter (MASNONCT) IHE Encounter Template Text not used by [place] Plan of Treatment: Future Appointments (+ 6 months) and Future Tests (+/- 45 days) The Plan of Treatment section includes future care activities for the patient from all [place] treatmentfacilities. This section includes future appointments and future orders which are active, pending orscheduled.Future Appointments This section includes appointments that were scheduled to occur 6 months from the date of the Encounter, up to a maximum of 20 appointments. The data comes from all [place] treatment [facility]. Appointment Date/Time Appointment Type Appointment Facili ty Name Jan 17, 2022 02:00 PM AMBULATORY - SURGERY [facility] S Social History: Smoking Status (Most current) and Tobacco Use (All prior to encounter date) This section includes the most current, and the historical, smoking and tobacco-related health factors from the [place] facility where the Encounter took place.Current Smoking Status This section includes the most current smoking, or tobacco-related health factor, from the [place] facility where the Encounter took place. Date/Time Current Smoking Status Comment Facility Aug 05, 2021 11:30 AM VA-TOBACCO NEVER USED [facility] Tobacco Use History This section includes a history of the smoking, or tobacco- related health factors, that were collected on or before the date of the Encounter. The data comes from the [facility] where the Encounter took place. Date/Time Smoking Status/Tobacco Use Comment [facility] it Dec 25, 2018 09:57 AM VA-TOBACCO FORMER USER [facility] Dec 25, 2018 09:57 AM [place]-TOBACCO QUIT 15 YRS OR MORE [facility] Dec 14, 2017 09:11 AM VA-TOBACCO NEVER USED [place] [facility] Dec 22, 2016 10:22 AM FORMER TOBACCO USER 7Y OR GREATER [facility] Jan 20, 2016 10:51 AM LIFETIME NON-TOBACCO USER [facility] Jan 08, 2015 10:35 AM FORMER TOBACCO USER 7Y OR GREATER [facility] Jan 01, 2014 04:02 PM FORMER TOBACCO USER 7Y OR GREATER [facility] Apr 01, 2010 10:12 AM FORMER TOBACCO USER 7Y OR GREATER [facility] Advance Directives: All historical and current Section Date Range: From patient's date of to the date document was created. This section includes ALL of a patient's completed or amended [place] Advance and Rescinded Directives. The entries below indicate that a directive exists for the patient, but an actual copy is not included with this document. The data comes from all [facility]. Date Advance Directives Provider Source Jan 02, 2014 ADVANCE DIRECTIVE KATARZYNA LINCOLN [facility] Jan 02, 2014 ADVANCE DIRECTIVE DISCUSSION KATARZYNA LINCOLN [facility] Encounter Notes: All associated encounter notes This section contains the clinical notes associated to the Encounter. Date/Time Encounter Note(s) Provider Source Nov 05, 2021 07:53 PM NONVA NOTE: JANET WHALEN [facility] LOCAL TITLE: COMMUNITY CARE-[facility] SELF PRESENTIN G CARE COORD PLAN N STANDARD TITLE: NONVA NOTE DATE OF NOTE: NOV 05, 2021@19:53 ENTRY DATE: NOV 05, 2021@19:53:46 AUTHOR: JANET WHALEN EXP COSIGNER: URGENCY: STATUS: COMPLETED COMMUNITY CARE-[facility]AU[facility]EM[facility] SELF PRESENTING CARE CO ORD PLAN NOTE Has ADDENDA Emergency Notification Intake Date Presenting to the Facility: Nov Method of Contact: Notified from [employer] worklist Notification ID: [id number] HSRM Referral #: [facility] Name: Hospital: [facility] Address: City: [place] State: [place] Zip Code: Phone : [facility] Point of Contact: Name: Phone: Chief complaint: Chest Pain Primary Diagnosis: Disposition Unknown at time of intake note entry 11/05/2021 7:50:27 PM BRUCE KNOTT [employer] [facility], UP DATED LAST , SEARCHED ER PROVIDERS, CHECKED VA AVAILABILITY, ENTERED CC. APPROVED FOR 1703.NO OB CALL MADE AFTER 5PM C. /corrine/ JANET WHALEN EDUCATIONAL ADVISER Signed: 11/05/2021 19:54 Receipt Acknowledged By: 11/08/2021 13:22 /aneta TRAN RN REGISTERED NURSE 11/08/2021 ADDENDUM STATUS: COMPLETED Requested records from the treating facility, wi ll send to [facility] for importing once received. Also cosigning the PACT RN for aw areness of episode of care. /aneta TRAN RN REGISTERED NURSE Signed: 11/08/2021 13:22 Receipt Acknowledged By: 11/09/2021 08:24 /aneta ELLISON RN [employer] 11/09/2021 ADDENDUM STATUS: COMPLETED Elbert was seen in an outside ER on: 11/05/21 [facility] Diagnosis: Chest pain Transferred to [facility] Medical records received and sent to [facility] for im port. /aneta TRAN RN REGISTERED NURSE Signed: 11/09/2021 09:04 Receipt Acknowledged By: 11/09/2021 09:05 /es/ BORA ELLISON RN [employer]
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
--- OUTSIDE RECORDS SUMMARY | 2021-11-22 12:53 | XMS_ITS | Encounter Summary ---
:[address] [facility] Address [address] [place] [address] Support Name Relationship Address Phone AYAKA STOREY Unavailable [phone] [phone] [place] [address] AYAKA STOREY Unavailable [phone] [place] [address] Insurance Providers: All historical and current Section [...] Edwards [place] MEDICARE MCR Mar 06, [id number] STOREY [facility] (WNR) ADVANTAGE (WNR) 2019 5 [id number] [phone] MELANIE 1 MEDICARE MEDICARE PART Oct 04, PART A [id number] [address] STOREY (WNR) (M) A 2007 [id number] [phone] MELANIE MEDICARE MEDICARE PART Oct 04, PART B [id number] 800 [address] STOREY (WNR) (M) B 2007 [id number] [phone] MELANIE Selected Encounter This section includes the information on record at [place] for the Encounter. Date/Time Encounter Type Encounter Description Reason Provider Source Nov 10, 2021 08:38 Outpatient Encounter COMMUNITY CARE AM CONSULT IHE Encounter Template Text not used by [facility] Plan of Treatment: Future Appointments (+ 6 [...] 20 appointments. The data comes from all [facility]. Appointment Date/Time Appointment Type Appointment Facili ty Name Nov 18, 2021 09:30 AM AMBULATORY - MEDICINE [facility] Dec 07, 2021 01:00 PM AMBULATORY - REHAB [facility] Jan 17, 2022 02:00 PM AMBULATORY - SURGERY [facility] Active, Pending, and Scheduled Orders This section includes a listing of several types of active, pending, and scheduled orders, including clinic medications orders, diagnostic test orders, procedure orders and consult orders; where the start date of the order is 45 days before the date of the Encounter or 45 days after the date of the Encounter. The data comes from all [facility]. Test Date/Time Test Type Test Details Facility Name Nov 15, 2021 09:56 AM Consult Order [facility] Aide's Choice Advance Directives: All historical and current Section Date Range: From patient's date of to the date document was created. This section includes ALL of a patient's completed or amended [place] Advance and Rescinded Directives. The entries below indicate that a directive exists for the patient, but an actual copy is not included with this document. The data comes from all [facility]. Date Advance Directives Provider Source Jan 02, 2014 ADVANCE DIRECTIVE KATARZYNA LINCOLN [facility] Jan 02, 2014 ADVANCE DIRECTIVE DISCUSSION KATARZYNA LINCOLN [facility] Encounter Notes: All associated encounter notes This section contains the clinical notes associated to the Encounter. Date/Time Encounter Note(s) Provider Source Nov 10, 2021 08:38 AM NONVA NOTE: OZ REY [facility] LOCAL TITLE: COMMUNITY CARE-[facility] SELF PRESENTIN G CARE COORD PLAN STANDARD TITLE: NONVA NOTE DATE OF NOTE: NOV 10, 2021@08:38 ENTRY DATE: NOV 10, 2021@08:38:12 AUTHOR: OZ REY EXP COSIGNER: URGENCY: STATUS: COMPLETED SUBJECT: 11/06/2021 Hospital Notification COMMUNITY CARE-[facility] SELF PRESENTING CARE CO ORD PLAN NOTE Has ADDENDA Emergency Notification Intake Date Presenting to the Facility: Nov 06, 2021 Method of Contact: [facility] Name: [facility] City: [facility] State: [place] Chief complaint/diagnosis: NSTEMI Disposition: Admitted Route of Admission: ER Date of Admission: Admitting Diagnosis: Same a chief complaint/caesar gnosis above Community Care Provider: Hospitalist Confirm Level of Care: Acute Inpatient Care New Notification currently admitted: Alerting PACT and CITC RN as an FYI Please see above note. Walker is currently admi tted. Hospital Admission Note received and sent to [facility]. Notification ID: [id number] Closed - Approved for 1703 /corrine/ OZ REY AD CLERK Signed: 11/10/2021 08:42 Receipt Acknowledged By: 11/10/2021 10:40 /es/ KESHIA SINGER RN REGISTERED NURSE 11/10/2021 ADDENDUM STATUS: COMPLETED [facility] Care Coordination Plan CONTINUED STAY REVIEW was transferred from another facility to the [facility] on 11/06/21. Heparin and Nitro drips infusing. Follow Up 11/09/21 Hospitalist Progress Note: NSTEMI Severe MVCAD, preserved EF Nonsustained ventricular tachycardia Hypertension Hyperlipidemia Hypothyroidism 81-year-old male presenting with NSTEMI in [facility] ng of severe MVCAD, preserved EF, awaiting CABG which is tentatively planned f or tomorrow with Dr. Cavazos. Patient is stable presently, maintained on IV heparin and IV nitro. We will place preop surgical orders. We will per form preoperative COVID test. Discontinue heparin at 0400 tomorrow. Appreciate acute management ongoing per Hospitalist and Cardiology. The patient has had all questions answered as we ll as to the routine postoperative course to expect. The patient had the risks and benefits of surgery reiterated which include the risk of inf ection, transfusion of blood and blood products, risk of transfusion reaction, sudden , bleeding, take back to OR, organ failure including renal failur e, risk of requiring a permanent pacemaker, and stroke. The patient sta ravi that he understands these and agrees to proceed with surgery tomorrow nkechi gutierrez under the care of Dr. Yomi Cavazos. status: Full code Procedure: CABG on 11/10/21. PICC Line, [place] Catheter, FIONA placement, Central Venous catheter, ART Line, cardiac Cath Imaging: Carotid US, CT chest, Echocardiogram Plan: CABG on 11/10/21. Anticipated Length of Stay: Unknown Disposition: Unknown at this time /corrine/ KESHIA SINGER, CHRISTO REGISTERED NURSE Signed: 11/10/2021 10:53 11/12/2021 ADDENDUM STATUS: COMPLETED Community Care Coordination Plan CONTINUED STAY REVIEW Follow Up 11/12/21 Cardiovascular and thoracic Surgery Progr ess Note: Walker status: Dilan Storey is seen today in S258/01. Alex tam is POD # 2 S/P Procedure (s): Coronary Artery Bypass Graft, Endoscopic Vein Justin rvest Bilateral Legs, Placement Of Tritium Sternal Cable Plating Syste m Plan: Multivessel Coronary Artery Disease and NSTEMI -POD #2 - s/p CABG x 4 (GARRIDO to LAD, SVG to OM, SVG to Diag, SVG to RCA), endoscopic vein harvest of left leg and right th igh, and ORIF sternum with tritium cable plating system -progressing well. Difficulty sleeping. Denies s ignificant pain -Labs and CXR tomorrow AM. -chest tubes to waterseal -cap temp pacing wires -81 mg aspirin daily -75 mg plavix daily at discharge -Continue PO Metoprolol 25 mg twice daily -PO Hydralazone PRN for hypertension -IV Lasix + Kdur today -40 mg atorvastatin daily -LV function: Normal (50-65%) -Monitor I&Os. Pulmonary hygiene, IS, PEP -Continue to encourage frequent ambulation and I S. Cardiac rehab. -Advance diet as tolerated to heart healthy diet -Anticoagulation plan: aspirin + Plavix Hypertension POLARITY TESTER meds: None Continue to monitor Hyperlipidemia POLARITY TESTER meds: None Start atorvastatin this admission. Anticipated Length of Stay: Unknown Disposition: Unknown at this time. /corrine/ BLANCHE GOSS STRAIGHT SLICING MACHINE OPERATOR, CARGO ROUTER CLINICAL STOCK FEEDER Signed: 11/12/2021 13:50 11/15/2021 ADDENDUM STATUS: COMPLETED Community Care Coordination Plan CONTINUED STAY REVIEW Follow Up 11/14/21 Cardiovascular Thoracic Surgery Progress Note: s/p CABG x4. POD #4. Walker status: acute inpatient Procedure: CABG x 4 (GARRIDO to LAD, SVG to OM, SV G to Diag, SVG to RCA), endoscopic vein harvest of left leg and right t high, and ORIF sternum with tritium cable plating system Plan: Continues IV diuresis, labs monitoring. A dvance diet as tolerated. Anticipated Length of Stay: 1-3 Days Disposition: Unknown at this time /corrine/ GEOVANNI TURNER RN, BSN REGISTERED NURSE Signed: 11/15/2021 12:42 11/19/2021 ADDENDUM STATUS: COMPLETED DISCHARGE PLANNING Admitted to inpatient care on 11/06/21 Walker's admitting diagnosis: S/p CABG x4, NSTE IA Is Case Management needed? Unknown Is Disease Management needed? Unknown Anticipated discharge date of 11/15/21 Anticipated discharge diagnosis: Principal Problem: S/P CABG x 4 Active Problems: NSTEMI Hypothyroidism HLD CAD, multiple vessel Acute blood loss anemia Thrombocytopenia due to extra corporeal by-pass circulation Hyponatremia Acute diastolic heart failure. Discharge Summary received, available for review in EpicPledge. Requested services include: -Cardiology Date of discharge: 11/15/21. Discharge Disposition: discharged to home. PCP follow-up recommended in 5-7 days. MAA alerted to review eligibility and enrollment . /corrine/ KESHIA SINGER RN REGISTERED NURSE Signed: 11/19/2021 07:55
--- OUTSIDE RECORDS SUMMARY | 2021-11-22 12:53 | XMS_ITS | Encounter Summary ---
:1940 Author Organization Department [facility] rs Address [address] [place] [address] Support Name Relationship Address Phone AYAKA BRADFORD Unavailable [address] [place] [address] AYAKA BRADFORD Unavailable [address] [place] [address] Insurance Providers: All historical and current Section [...] Edwards [place] MEDICARE MCR Mar 06, [id number] [address] [facility] (WNR) ADVANTAGE (WNR) 2019 5 [id number] [phone] MELANIE 1 MEDICARE MEDICARE PART Oct 04, PART A [id number] [address] (WNR) (M) A 2007 94A [phone] MELANIE MEDICARE MEDICARE PART Oct 04, PART B [id number] [address] (WNR) (M) B 2007 94A [phone] MELANIE Selected Encounter This section includes the information on record at [place] for the Encounter. Date/Time Encounter Type Encounter Description Reason Provider Source Nov 15, 2021 08:58 Outpatient Encounter TELEPHONE TRIAGE AM IHE Encounter Template Text not used by [place] Plan of Treatment: Future Appointments (+ 6 [...] 20 appointments. The data comes from all [facility]. Appointment Date/Time Appointment Type Appointment Facili ty Name Nov 18, 2021 09:30 AM AMBULATORY - MEDICINE [facility] Jan 17, 2022 02:00 PM AMBULATORY - SURGERY [facility] S Active, Pending, and Scheduled Orders This section includes a listing of several types of active, pending, and scheduled orders, including clinic medications orders, diagnostic test orders, procedure orders and consult orders; where the start date of the order is 45 days before the date of the Encounter or 45 days after the date of the Encounter. The data comes from all [facility]. Test Date/Time Test Type Test Details Facility Name Nov 15, 2021 09:56 AM Consult Order CARDIAC REHAB OUTPT [facility] Textile Technologist's Choice Social History: Smoking Status (Most current) and Tobacco Use (All prior to encounter date) This section includes the most current, and the historical, smoking and tobacco-related health factors from the [place] facility where the Encounter took place.Current Smoking Status This section includes the most current smoking, or tobacco-related health factor, from the [place] facility where the Encounter took place. Date/Time Current Smoking Status Comment Facility Aug 05, 2021 11:30 AM [place]-TOBACCO [facility]ED [facility] Tobacco Use History This section includes a history of the smoking, or tobacco- related health factors, that were collected on or before the date of the Encounter. The data comes from the [place] facility where the Encounter took place. Date/Time Smoking Status/Tobacco Use Comment [facility] Dec 25, 2018 09:57 AM [place]-TO[place]CO [place]MER US[place] [facility] Dec 25, 2018 09:57 AM [place]-TO[place]AC[place] QUIT [address] [facility] Dec 14, 2017 09:11 AM [place]-TO[place]ACCO [place] USED [place] [facility] Dec 22, 2016 10:22 AM FORMER TOBACCO USER 7Y OR GRE[address] [facility] Jan 20, 2016 10:51 AM LIFETIME NON-TOBACCO USER [facility] Jan 08, 2015 10:35 AM FORMER TOBACCO USER 7Y OR GRE[address] [facility] Jan 01, 2014 04:02 PM FORMER TOBACCO USER 7Y OR GRE[address] [facility] Apr 01, 2010 10:12 AM FORMER TOBACCO USER 7Y OR [facility] [facility] Advance Directives: All historical and current Section Date Range: From patient's date of to the date document was created. This section includes ALL of a patient's completed or amended [place] Advance and Rescinded Directives. The entries below indicate that a directive exists for the patient, but an actual copy is not included with this document. The data comes from all [place] facilities. Date Advance Directives Provider Source Jan 02, [address] [facility] Jan 02, 2014 ADVANCE DIRECTIVE DISCUSSION KATARZYNA [facility] Encounter Notes: All associated encounter notes This section contains the clinical notes associated to the Encounter. Date/Time Encounter Note(s) Provider Source Nov 15, 2021 08:58 AM REPORT OF CONTACT: GENA PETTY [facility] LOCAL TITLE: PATIENT CONTACT NOTE STANDARD TITLE: REPORT OF CONTACT DATE OF NOTE: NOV 15, 2021@08:58 ENTRY DATE: NOV 15, 2021@08:58:23 AUTHOR: GENA PETTY EXP COSIGNER: URGENCY: STATUS: COMPLETED PATIENT CONTACT NOTE Has ADD[facility]DA Primary [facility] Call Center Phone number verified as correct.[phone] Patient's called said t jennifer need a community care consult placed for patient to do cardiac rehab in [facility]. She said it needs to be placed right away because they want to sta rt rehab right away 2 times a week. She would like a call back once placed. /[facility]eta [facility]TY [facility] Signed: 11/15/2021 09:04 Receipt Acknowledged By: 11/15/2021 09:57 /corrine/ ISACC FIGUEROA M.D. MEDICAL STAFF 11/15/2021 10:39 /corrine/ BORA ELLISON RN Pact Extrusion Engineer 11/15/2021 ADDENDUM STATUS: COMPLETED I phoned and spoke with pt's spouse informing he r of entered CC Consult for Card Rehab. Await final authorization from CC. /corrine/ BORA ELLISON RN Pact Extrusion Engineer Signed: 11/15/2021 10:41 11/15/2021 ADDENDUM STATUS: COMPLETED This writer producer (physician advis or for the community care programs) is respectfully alerting PACT that Community Care Cardiac Rehab consult #[id number] has been forwarded to [facility] for th e following reason: FORWARDED FROM 11/15/21 17:24 ISACC FIGUEROA [facility] Patient does not have approved medical hardship consult, and PCPs may not place CC consults based upon wait time. Patient does not meet drive time criteria for this service through [facility] . Consult is thus being forwarded to [facility]. Reque PACT advise pt of same. /corrine/ JAMAR VALDEZ MD STAFF PHYSICIAN Signed: 11/15/2021 17:26 Receipt Acknowledged By: 11/15/2021 17:38 /corrine/ ISACC FIGUEROA M.D. MEDICAL STAFF 11/16/2021 08:42 /aneta ELLISON RN Pact Extrusion Engineer 11/16/2021 ADDENDUM STATUS: COMPLETED I phoned and spoke with spouse informing her CC Card Rehab is denied and the reason why. [facility] was entered. Await contact from [place]hab. Spouse replied understanding. /corrine/ BORA ELLISON RN Pact Extrusion Engineer Signed: 11/16/2021 08:44
--- OUTSIDE RECORDS SUMMARY | 2021-11-22 12:53 | XMS_ITS | Encounter Summary ---
:1940 Author Organization Department [facility] rs Address [address] [place] [address] Support Name Relationship Address Phone AYAKA BRADFORD Unavailable [address] [place] [address] AYAKA BRADFORD Unavailable [address] [place] [address] Insurance Providers: All historical and current Section [...] Edwards [place] M[place] Mar 06, [id number] [address] [facility] (WNR) ADVANTAGE (WNR) 2019 5 [id number] [phone] MELANIE 1 MEDICARE MEDICARE PART Oct 04, PART A [id number] [address] (WNR) (M) A 2007 94A [phone] MELANIE MEDICARE MEDICARE PART Oct 04, PART B [id number] [address] (WNR) (M) B 2007 94A [phone] MELANIE Selected Encounter This section includes the information on record at [place] for the Encounter. Date/Time Encounter Type Encounter Reason Provider Source Description Dec 21, 2020 IMMUNIZATION GENERAL INTERNAL ICD-10-CM Z23 VIJAYNARAYAN LEDBETTER 01:20 PM ADMIN MEDICINE Encounter for L immunization with Provider Comments: Encounter for Immunization IHE Encounter Template Text not used by [facility] Assessments - Encounter Diagnoses This section includes the primary and secondary diagnoses documented for the Encounter. Date/Time Primary/Secondary Diagnosis Name Provider Source Diagnosis Dec 21, 2020 PRIMARY Encounter for NARAYAN LINARES [facility] 01:05 PM immunization [facility] Plan of Treatment: Future Appointments (+ 6 months) and Future Tests (+/- 45 days) The Plan of Treatment section includes future care activities for the patient from all [place] [facility]. This section includes future appointments and future orders which are active, pending orscheduled.Future Appointments This section includes appointments that were scheduled to occur 6 months from the date of the Encounter, up to a maximum of 20 appointments. The data comes from all [facility]. Appointment Date/Time Appointment Type Appointment Facili ty Name Feb 02, 2021 01:40 PM AMBULATORY - SURGERY [facility] Feb 02, 2021 02:00 PM AMBULATORY - SURGERY [facility] Active, Pending, and Scheduled Orders This section includes a listing of several types of active, pending, and scheduled orders, including clinic medications orders, diagnostic test orders, procedure orders and consult orders; where the start date of the order is 45 days before the date of the Encounter or 45 days after the date of the Encounter. The data comes from all [facility]. Test Date/Time Test Type Test Details Facility Name Jan 16, 2021 12:00 AM Laboratory - Chemistry ALBUMIN PLASMA SP [facility] Order Jan 16, 2021 12:00 AM Laboratory - Chemistry BASIC METABOLIC [facility] Order PANEL+MG PLASMA SP ONCE Jan 16, 2021 12:00 AM Laboratory - Chemistry CALCIUM PLASMA SP [facility] Order Jan 16, 2021 12:00 AM Laboratory - Chemistry TSH W/REFLEX TO DIYA E [facility] Order T4 PLASMA SP Jan 16, 2021 12:00 AM Laboratory - Chemistry CBC BLOOD SP [facility] Order Immunizations: All administered on the encounter date This section contains immunizations associated to the Encounter. Immunization Series Date Issued Reaction Comments COVID-19 (PFIZER), MRNA, LNP-S, 3 Dec 21, 2020 PFR; [id number]; 01/03/2021 PF, 30 MCG/0.3 ML DOSE INFLUENZA, INJECTABLE, Dec 21, 2020 QUADRIVALENT, PRESERVATIVE FREE Social History: Smoking Status (Most current) and Tobacco Use (All prior to encounter date) This section includes the most current, and the historical, smoking and tobacco-related health factors from the [place] facility where the Encounter took place.Current Smoking Status This section includes the most current smoking, or tobacco-related health factor, from the [place] facility where the Encounter took place. Date/Time Current Smoking Status Comment Facility Dec 25, 2018 09:57 AM [place]-TOBACCO QUIT 15 YRS OR MORE [facility] Tobacco Use History This section includes a history of the smoking, or tobacco- related health factors, that were collected on or before the date of the Encounter. The data comes from the [place] facility where the Encounter took place. Date/Time Smoking Status/Tobacco Use Comment Facil ity Dec 25, 2018 09:57 AM [place]-TOBACCO QUIT 15 YRS OR MORE [facility] Dec 14, 2017 09:11 AM [place]-TOBACCO NEVER USED [facility] Dec 22, 2016 10:22 AM FORMER TOBACCO USER 7Y OR GREATER [facility] Jan 20, 2016 10:51 AM LIFETIME NON-TOBACCO USER [facility] Jan 08, 2015 10:35 AM FORMER TOBACCO USER 7Y OR GREATER [facility] Jan 01, 2014 04:02 PM FORMER TOBACCO USER 7Y OR GREATER [facility] Apr 01, 2010 10:12 AM FORMER TOBACCO USER 7Y OR GREATER [facility] Advance Directives: All historical and current Section Date Range: From patient's date of to the date document was created. This section includes ALL of a patient's completed or amended [place] Advance and Rescinded Directives. The entries below indicate that a directive exists for the patient, but an actual copy is not included with this document. The data comes from all [facility]. Date Advance Directives Provider Source Jan 02, 2014 ADVANCE DIRECTIVE KATARZYNA LINCOLN [facility] Jan 02, 2014 ADVANCE DIRECTIVE DISCUSSION KATARZYNA LINCOLN [facility] Encounter Notes: All associated encounter notes This section contains the clinical notes associated to the Encounter. Date/Time Encounter Note(s) Provider Source Dec 21, 2020 01:07 PM IMMUNIZATION NOTE: NARAYNA LINARES [facility] LOCAL TITLE: INFLUENZA VACCINATION STANDARD TITLE: IMMUNIZATION NOTE DATE OF NOTE: DEC 21, 2020@13:07 ENTRY DATE: DEC 21, 2020@13:07:14 AUTHOR: NARAYAN LINARES EXP COSIGNER: URGENCY: STATUS: COMPLETED The patient was given the influenza VIS which li sts the benefits and side effects of the vaccine and which reviews the ris ks of not receiving the flu vaccine. The VIS was reviewed with the patient a nd they were given an opportunity to ask questions. The patient was pr ovided education on how to decrease the risk of influen za infection including social distancing and use of good hand hygiene. The patient denied any prior severe reaction to the flu vaccine or its components. The patient gave verb al consent to receive the vaccine. The seasonal influenza vaccine VIS given to the patient: VIS version date Oct. The patient received seasonal influenza vaccine today - Influenza, Quadrivalent preservative free (Afluria) 0.5 ml IM today in Right Deltoid. 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 Lot # and Expiration Date: Lot#:[id number], EXP : 09/02/2021 /aneta LINARES REGISTERED NURSE Signed: 12/21/2020 13:07 Dec 21, 2020 01:04 PM NURSING IMMUNIZATION NOTE: NARAYAN LINARES [facility] LOCAL TITLE: VAAES OUTPATIENT COVID VACCINE ADM INISTRATION STANDARD TITLE: NURSING IMMUNIZATION NOTE DATE OF NOTE: DEC 21, 2020@13:04 ENTRY DATE: DEC 21, 2020@13:04:54 AUTHOR: NARAYAN LINARES EXP COSIGNER: URGENCY: STATUS: COMPLETED The patient was given the VIS for this vaccine w [facility] lists the benefits and side effects of the vaccine and which reviews th e risks of the vaccine. The fact sheet was reviewed with the patient and they were given an opportunity to ask questions. The patient denied any pr ior severe reaction to this vaccine or its components or a severe allergic reaction suc h as anaphylaxis to any vaccine or to any injectable therapy. The patien t gave verbal consent to receive the vaccine. Booster Dose: The patient received [employer] COVID-19 Vaccine 0.3 ml IM. Series: Series 3 MVX (Manuf); Lot#; Exp Date: PFR; [id number]; 01/03 Administration Anatomic site: Left Deltoid Vaccine administered without complications. The patient was advised to remain in the facility for 15 minute s post vaccination. The patient was given a completed COVID-19 vacc ination record card, a copy of the [place] Side Effects and Adverse Event s Reporting Fact Sheet and instructed on how to report any adver se reactions. Vaccine administered by policy/protocol. /aneta LINARES REGISTERED NURSE Signed: 12/21/2020 13:05
--- OUTSIDE RECORDS SUMMARY | 2021-11-22 12:53 | XMS_ITS | Encounter Summary ---
:1940 Author Organization Department [facility] Address [address] [place] [address] Support Name Relationship Address Phone AYAKA BRADFORD Unavailable [address] [place] [address] AYAKA BRADFORD Unavailable [address] [phone] [place] [address] Insurance Providers: All historical and current Section [...] Edwards [place] MCR Mar 06, [id number] [address] [facility] (WNR) ADVANTAGE (WNR) 2019 5 [id number] [phone] MELANIE 1 MEDICARE MEDICARE PART Oct 04, PART B [id number] [address] (WNR) (M) B 2007 94A [phone] MELANIE MEDICARE MEDICARE PART Oct 04, PART A [id number] [address] (WNR) (M) A 2007 [id number] [phone] MELANIE Selected Encounter This section includes the information on record at [place] for the Encounter. Date/Time Encounter Type Encounter Description Reason Provider Source Nov 19, 2021 02:17 Outpatient Encounter ADMIN FOREST YE PM (ORIONCT) IHE Encounter Template Text not used by [place] Plan of Treatment: Future Appointments (+ 6 [...] 20 appointments. The data comes from all [facility]. Appointment Date/Time Appointment Type Appointment Facili ty Name Dec 07, 2021 01:00 PM AMBULAT[facility] Jan 17, 2022 02:00 PM AMBULATORY - SURGERY [facility] Active, Pending, and Scheduled Orders This section includes a listing of several types of active, pending, and scheduled orders, including clinic medications orders, diagnostic test orders, procedure orders and consult orders; where the start date of the order is 45 days before the date of the Encounter or 45 days after the date of the Encounter. The data comes from all [facility]. Test Date/Time Test Type Test Details Facility Name Nov 15, 2021 09:56 AM Consult Order CARDIAC REHAB OUTPT [facility] Electrolysis Operator's Choice Advance Directives: All historical and current Section Date Range: From patient's date of to the date document was created. This section includes ALL of a patient's completed or amended [place] Advance and Rescinded Directives. The entries below indicate that a directive exists for the patient, but an actual copy is not included with this document. The data comes from all [facility]. Date Advance Directives Provider Source Jan 02, 2014 ADVANCE DIRECTIVE KATARZYNA LINCOLN [facility] Jan 02, 2014 ADVANCE DIRECTIVE DISCUSSION KATARZYNA LINCOLN [facility] Encounter Notes: All associated encounter notes This section contains the clinical notes associated to the Encounter. Date/Time Encounter Note(s) Provider Source Nov 19, 2021 02:17 PM ADMINISTRATIVE NOTE: YUE OLGUIN [facility] LOCAL TITLE: SCHEDULING ATTEMPT NOTE INITIAL STANDARD TITLE: ADMINISTRATIVE NOTE DATE OF NOTE: NOV 19, 2021@14:17 ENTRY DATE: NOV 19, 2021@14:17:16 AUTHOR: YUE OLGUIN EXP COSIGNER: URGENCY: STATUS: COMPLETED CONNECTION WORKER SCHEDULING ATTEMPT PATIENT CONTACT NOTE The patient WAS contacted; no appointment schedu led Reason: New Patient Exam/ Appointments ASSIGNED TO [facility] WILL NOT BE TRANSFERRI CAIN /corrine/ YUE OLGUIN BRAND DIRECTOR Signed: 11/19/2021 14:18
--- OUTSIDE RECORDS SUMMARY | 2021-11-22 12:53 | XMS_ITS ---
:1940 Author Organization Department [facility] Address [address] [place] [address] Support Name Relationship Address Phone AYAKA BRADFORD Unavailable [address] [place] [address] AYAKA BRADFORD Unavailable [address] [address] Insurance Providers: All historical and current Section [...] Edwards [place] Mar 06, [id number] [address] [facility] (WNR) ADVANTAGE (WNR) 2019 5 [id number] [phone] MELANIE 1 MEDICARE MEDICARE PART Oct 04, PART A [id number] [address] (WNR) (M) A 2007 94A [phone] MELANIE MEDICARE MEDICARE PART Oct 04, PART B [id number] [address] (WNR) (M) B 2007 94A [phone] MELANIE Selected Encounter This section includes the information on record at [place] for the Encounter. Date/Time Encounter Type Encounter Description Reason Provider Source Nov 15, 2021 08:39 Outpatient Encounter COMMUNITY CARE AM CONSULT IHE [...] 20 appointments. The data comes from all [facility]. Appointment Date/Time Appointment Type Appointment Facili ty Name Nov 18, 2021 09:30 AM AMBULATORY - MEDICINE [facility] Dec 07, 2021 01:00 PM AMBULATORY - REHAB MEDICINE [facility] Jan 17, 2022 02:00 PM AMBULATORY - SURGERY [facility] Active, Pending, and Scheduled Orders This section includes a listing of several types of active, pending, and scheduled orders, including clinic medications orders, diagnostic test orders, procedure orders and consult orders; where the start date of the order is 45 days before the date of the Encounter or 45 days after the date of the Encounter. The data comes from all [facility]. Test Date/Time Test Type Test Details Facility Name Nov 15, 2021 09:56 AM Consult Order CARDIAC REHAB OUTPT Cons [facility] [employer] Sewer's Choice Social History: Smoking Status (Most current) and Tobacco Use (All prior to encounter date) This section includes the most current, and the historical, smoking and tobacco-related health factors from the [place] facility where the Encounter took place.Current Smoking Status This section includes the most current smoking, or tobacco-related health factor, from the [place] facility where the Encounter took place. Date/Time Current Smoking Status Comment Facility Aug 05, 2021 11:30 AM [place]-TO[place]CO [place] USED [place] [facility] Tobacco Use History This section includes a history of the smoking, or tobacco- related health factors, that were collected on or before the date of the Encounter. The data comes from the [place] facility where the Encounter took place. Date/Time Smoking Status/Tobacco Use Comment Facil ity Dec 25, 2018 09:57 AM [place]-TOBACCO FOR[place] US[place] [facility] Dec 25, 2018 09:57 AM [place]-TOBACCO QUIT [address] [facility] Dec 14, 2017 09:11 AM [place]-TOBACCO [place] USED [place] [facility] Dec 22, 2016 10:22 AM FORMER TOBACCO USER 7Y OR GREATER [facility] Jan 20, 2016 10:51 AM LIFETIME NON-TOBACCO USER [facility] Jan 08, 2015 10:35 AM FORMER TOBACCO USER 7Y OR GRE[address] [facility] Jan 01, 2014 04:02 PM FORMER TOBACCO USER 7Y OR GRE[address] [facility] Apr 01, 2010 10:12 AM FORMER TOBACCO USER 7Y OR [facility] [facility] Advance Directives: All historical and current Section Date Range: From patient's date of to the date document was created. This section includes ALL of a patient's completed or amended [place] Advance and Rescinded Directives. The entries below indicate that a directive exists for the patient, but an actual copy is not included with this document. The data comes from all [place] facilities. Date Advance Directives Provider Source Jan 02, 2014 AD[address]I SanN [facility] Jan 02, 2014 ADVANCE DIRECTIVE DISCUSSION SAL[facility]ARK[facility]ARZNYA [facility] Encounter Notes: All associated encounter notes This section contains the clinical notes associated to the Encounter. Date/Time Encounter Note(s) Provider Source Nov 15, 2021 08:39 AM NONVA NOTE: RIAN SHEPPARD IS [facility] LOCAL TITLE: COMMUNITY CARE-CARE COORDINATION P LUCI[place]O NOTE STANDARD TITLE: NONVA NOTE DATE OF NOTE: NOV 15, 2021@08:39 ENTRY DATE: NOV 15, 2021@08:40:19 AUTHOR: RIAN SHEPPARD EXP COSIGNER: URGENCY: STATUS: COMPLETED CONTACT [place] contacted on Nov to discuss: called the Community Care Call Line requesting a Community Care consult for CARDIAC REHAB from recent hosptal [facility]. [place] was informed that there is no existing authorization in place for this care . Respectfully alerting the 's PACT for review of this request and el igibility determination. Action Needed? Yes /es/ RIAN SHEPPARD AMSRoman Signed: 11/15/2021 08:43 Receipt Acknowledged By: * AWAITING SIGNATURE * ISACC FIGUEROA * AWAITING SIGNATURE * BORA ELLISON
== END 2021-11-06 00:59 | disposition home or self-care (01) ==
LOC: AMB 11-22 12:50
PROVIDERS: Visit Provider Family Medicine
DX: I21.4 Non-ST elevation (NSTEMI) myocardial infarction (principal)
CPT/HCPCS: A0425; A0434

== ENCOUNTER 2023-09-02 15:43 | Emergency (ER) | payer MEDICARE, OTHER, SELFPAY ==
[2023-09-02 15:53] VITALS: BP 131/79; PULSE 75; RESP 18; TEMP 36.1; O2SAT 96; BMI 27.8
--- NOTE | 2023-09-02 15:54 | ED_ITS ---
HPI - Wound/Laceration General Time Seen by Provider: 15:55 Date Seen: 09/02/23 Chief Complaint: Laceration/Wound Stated Complaint: L hand cut three fingers off Time Seen by Provider: 09/02/23 15:54 Source: patient, family and old records reviewed Mode of arrival: ambulatory Limitations: no limitations History of Present Illness HPI narrative: 82-year-old male who comes in today with left hand injury, cut it while using a table saw. No other injuries. Takes aspirin but no other blood thinners. Related Data Home Medications ?Medication ?Instructions ?Recorded ?Confirmed aspirin 81 mg capsule 81 mg PO DAILY 09/02/23 09/02/23 metoprolol tartrate .ROUTE 09/02/23 Allergies Allergy/AdvReac Type Severity Reaction Status Date / Time No Known Drug Allergies Allergy Verified 11/05/21 17:08 [facility] Social History Smoking Status: Never smoker Do you use any of these nicotine containing products: None How often do you have a drink containing alcohol: monthly or less How often do you have six or more drinks on one occasion: Never AUDIT-C Alcohol total score: 1 Non-prescribed substance use: denies use service: Yes Exam Narrative: Exam Narrative: General: well nourished , NAD Head: Atraumatic and normocephalic ENT: External ears and external nose are normal Eyes: Conjunctiva clear, pupils are equal reactive, external ocular motions are intact Neck: Full spontaneous range of motion of the neck Lungs: No respiratory distress Musculoskeletal: Left index finger- laceration of the distal phalanx through the nail. Left middle finger- laceration just proximal to the D IP joint with complete laceration of the extensor tendon. Left ring finger- partial amputation at the distal phalanx with only soft tissue bridge on the palmar surface. Neurologic: No gross focal neurologic deficits Skin: No rashes Psych: Mood and affect are appropriate Course Course ED Course: Patient seen and examined. Patient with left hand injury- laceration through the nail of the index finger, laceration across the DIP on the middle finger with complete tendon laceration, partial amputation of the ring finger at the DIP. Care was discussed with Dr. Toussaint at [facility] who accepts patient for transfer. 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
[2023-09-02] MEDS: CEFAZOLIN 1 GM in 0.9 % SODIUM CHLORIDE Mini-bag 100 ML IVPB (16:07)
[2023-09-02] MEDS: HYDROmorphone 0.5 mg/0.5 ml inj 0.3 MG IVP ×2 (16:11→17:00)
--- NOTE | 2023-09-02 16:22 | PC.NURSE ---
pt's left hand, three middle digits wrapped with 4X4s soaked in sterile water, then wrapped with kerlex.
[2023-09-02 16:24] VITALS: BP 127/83; PULSE 69; RESP 16; O2SAT 98
--- NOTE | 2023-09-02 16:33 | PC.NURSE ---
Pt has been NPO since 1200 today.
--- NOTE | 2023-09-02 16:34 | PC.NURSE ---
Per CAREJI last tetanus 07/21/22
--- OUTSIDE RECORDS SUMMARY | 2023-09-02 16:41 | XMS_ITS | Encounter Summary ---
Author Name [facility] Address [address] [place] [address] Care Team Providers Care Dial Maker Name Role Phone MYA FIGUEROAJOSEFINATAYLOR Primary Care Provider Unavailab le Insurance Providers: All historical and current Section Date Range: From patient's date of to the date document was created. This section includes the names of all active insurance providers for the patient. Insurance Provider Type of Coverage Plan Name Start of Policy Coverage End of Policy Coverage Group Number Member ID Insurance Provider's Telephone Number Policy Edwards's Name Patient's Relationship to Policy Edwards [facility] (WNR) MEDICARE ADVANTAGE [facility] ([facility] Mar 06, 2018 [id number] [phone] Arabella BRADFORD PATIENT MEDICARE (WNR) MEDICARE (M) PART A Oct 05, 2007 PART A [id number] [phone] Arabella BRADFORD PATIENT MEDICARE (WNR) MEDICARE (M) PART B Oct 05, 2007 PART B [id number] [phone] Arabella BRADFORD PATIENT Selected Encounter This section includes the information on record at [place] for the Encounter. Date/Time Encounter Type Encounter Description Reason Provider Source Mar 09, 2023 03:00 PM OFFICE O/P EST MOD 30 MIN OPHTHALMOLOGY ICD-10-CM H40.1131 Primary open-angle glaucoma, bilateral, mild stage LARRY POWELL Encounter Template Text not used by [place] Assessments - Encounter Diagnoses This section includes the primary and secondary diagnoses documented for the Encounter. Date/Time Primary/Secondary Diagnosis Diagnosis Name Provider Source Mar 09, 2023 03:29 PM PRIMARY Primary open-angle glaucoma, bilateral, mild stage LARRY POWELL [facility] Mar 09, 2023 03:29 PM SECONDARY Presence of intraocular lens LARRY POWELL [facility] Plan of Treatment: Future Appointments (+ 6 months) and Future Tests (+/- 45 days) The Plan of Treatment section includes future care activities for the patient [facility] This section includes future appointments and future orders which are active, pending or scheduled. Future Appointments This section includes appointments that were scheduled to occur 6 months from the date of the Encounter, up to a maximum of 20 appointments. The data comes from all [place] treatment facilities. Appointment Date/Time Appointment Type Appointme nt Facility Name Apr 04, 2023 09:45 AM AMBULATORY - SURGERY [facility] May 02, 2023 01:30 PM AMBULATORY - SURGERY [facility] Aug 07, 2023 03:00 PM AMBULATORY - REHAB MEDICIN E [facility] Aug 18, 2023 09:30 AM AMBULATORY - REHAB MEDICIN E [facility] Aug 21, 2023 10:00 AM AMBULATORY - NONE [facility] Aug 21, 2023 10:30 AM AMBULATORY - SURGERY [facility] Aug 24, 2023 10:30 AM [facility] Social History: Smoking Status (Most current) and Tobacco Use (All prior to encounter date) This section includes the most current, and the historical, smoking and tobacco- related health factors from the [place] facility where the Encounter took place. Current Smoking Status This section includes the most current smoking, or tobacco-related health factor, from the [place] facility where the Encounter took place. Date/Time Current Smoking Status Comment Leo ity July 21, 2022 10:00 AM [place]-TOBACCO NEVER USED [facility] Tobacco Use History This section includes a history of the smoking, or tobacco-related health factors, that were collected on or before the date of the Encounter. The data comes from the [place] facility where the Encounter took place. Date/Time Smoking Status/Tobacco Use Comment F acility Aug 05, 2021 11:30 AM VA-TOBACCO NEVER USED [facility] Dec 25, 2018 09:57 AM VA-TOBACCO FORMER USER [facility] Dec 25, 2018 09:57 AM VA-TOBACCO QUIT 15 YRS OR MORE [facility] Dec 14, 2017 09:11 AM VA-TOBACCO NEVER USED [facility] Dec 22, 2016 10:22 AM FORMER TOBACCO USER 7Y OR JUNIORE R [facility] Jan 20, 2016 10:51 AM LIFETIME NON-TOBACCO USER [facility] Jan 08, 2015 10:35 AM FORMER TOBACCO USER 7Y OR GREATE R [facility] Jan 01, 2014 04:02 PM FORMER TOBACCO USER 7Y OR GREATE R [facility] Apr 01, 2010 10:12 AM FORMER TOBACCO USER 7Y OR JUNIORE R [facility] Advance Directives: All historical and current Section Date Range: From patient's date of to the date document was created. This section includes ALL of a patient's completed or amended [place] Advance and Rescinded Directives. The entries below indicate that a directive exists for the patient, but an actual copy is not included with this document. The data comes from all [place] facilities. Date Advance Directives Provider Source Jan 02, 2014 [facility] Jan 02, 2014 ADVANCE DIRECTIVE DISCUSSION KATARZYNA LINCOLN [facility] Encounter Notes: All associated encounter notes This section contains the clinical notes associated to the Encounter. Date/Time Encounter Note(s) Provider Source Mar 09, 2023 03:23 PM OPHTHALMOLOGY TECH NICIAN NOTE: LOCAL TITLE: AIRFRAME AND POWERPLANT TECHNICIAN NOTE STANDARD TITLE: AIRFRAME AND POWERPLANT TECHNICIAN NOTE DATE OF NOTE: MAR 09, 2023@15:23 ENTRY DATE: MAR 09, 2023@15:23:34 AUTHOR: VIRGILIO FAROOQ EXP COSIGNER: URGENCY: STATUS: COMPLETED RNFL OCT BOTH eyes completed and uploaded for review. /corrine/ VIRGILIO FAROOQ HEALTH CHIEF DIGITAL MEDIA OFFICER Signed: 03/09/2023 15:23 VIRGILIO FAROOQ [facility] Mar 09, 2023 03:23 PM OPHTHALMOLOGY ATTE NDING NOTE: LOCAL TITLE: OPHTHALMOLOGY CLINIC NOTE STANDARD TITLE: OPHTHALMOLOGY ATTENDING NOTE DATE OF NOTE: MAR 09, 2023@15:23 ENTRY DATE: MAR 09, 2023@15:23:46 AUTHOR: LARRY POWELL EXP COSIGNER: URGENCY: STATUS: COMPLETED Clinic Progress Note Chief complaint: follow up- pt states that OD feels like FB more so in the morning, no new other concerns History of Present Illness: Location: Intensity: Duration: Active problems - Computerized Problem List is the source for the followin. Mixed hyperlipidemia (SNOMED CT 249364414) 2. Polyp of colon (SNOMED CT 69510743) 3. Benign paroxysmal positional vertigo 4. Glaucoma 5. Esophageal dysphagia 6. 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 Surgeries: JUN 12, 2014 Proc: KPE IOL right eye MAY 20, 2014 Proc: KPE IOL left eye Follow Up Exam Eye Medications taking drops as directed Last refraction: Vision: OD:CC(with glasses) OD: 20/20 Pinhole: 20/ Near: 20/ Vision: OS: 0S: 20/20 Pinhole: 20/ Near: 20/ Current glasses: OD: X Prism: OS: X Prism: Add: Refraction: Manifest: NO Automated: NO OD: X 20/ OS: X 20/ Balance: Add: +2.50 Near vision: OD : OS : OU 20 Comment: Confrontational Robertson: Full to finger counting: Right: Left: Extra Ocular Movement: Normal Pupils: Right: Round Left: Round Size: Right: 5 Left: 5 React to light: Right: Yes Left: Yes Afferent pupil defect: Right:No Grade: Left: No Grade: Note: Intra-ocular pressure (IOP): OD: 15 OS: 15 iCare Dilation: mydriacyl 1% and neosynephrine OU I have reviewed the radar technician's note and agree with their findings. Patient is alert and oriented x 3. SLE, right : lids/lashes: no abnormality conjunctiva/sclera: white and quiet cornea: clear epithelium, stroma, and no guttae anterior chamber: deep and quiet iris: round and flat lens: pciol anterior vitreous: clear SLE, left : lids/lashes: no abnormality conjunctiva/sclera: white and quiet cornea: clear epithelium, stroma, and no guttae anterior chamber: deep and quiet iris: round and flat lens: pciol anterior vitreous: clear DFE, right: vitreous: clear optic nerve: 0.5 cup/disc, ppa, tilt macula: sharp foveal light reflex vessels: normal caliber and distribution periphery: normal without holes or tears DFE, left: vitreous: clear optic nerve: 0.5 cup/disc, ppa, tilt macula: sharp foveal light reflex vessels: normal caliber and distribution periphery: normal without holes or tears Impression/Plan: 1. 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 Pseudophakia, bilateral - Doing well, observe 3. Refractive error - New mrx given RTC 1 year vtd mr ou, oct rnfl, 24-2 hvf /es/ LARRY POWELL M.D. ORTHOTIC AND PROSTHETIC TECHNICIAN Signed: 03/09/2023 15:33 LARRY POWELL [facility] Mar 09, 2023 03:10 PM OPHTHALMOLOGY TECH YUSUF NOTE: LOCAL TITLE: AIRFRAME AND POWERPLANT TECHNICIAN NOTE STANDARD TITLE: AIRFRAME AND POWERPLANT TECHNICIAN NOTE DATE OF NOTE: MAR 09, 2023@15:10 ENTRY DATE: MAR 09, 2023@15:11:01 AUTHOR: JOB BALL EXP COSIGNER: URGENCY: STATUS: COMPLETED Eye Start Exam Patient: DILAN BRADFORD Sex: MALE SSN: [id number] Birthdate: [birth year] Chief complaint: follow up- pt states that OD feels like FB more so in the morning, no new other concerns History of Present Illness: Location: Intensity: Duration: Active problems - Computerized Problem List is the source for the followin. Mixed hyperlipidemia (SNOMED CT 944196881) 2. Polyp of colon (SNOMED CT 26784235) 3. Benign paroxysmal positional vertigo 4. Glaucoma 5. Esophageal dysphagia 6. 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 Surgeries: JUN 12, 2014 Proc: KPE IOL right eye MAY 20, 2014 Proc: KPE IOL left eye Follow Up Exam Eye Medications taking drops as directed Last refraction: Vision: OD:CC(with glasses) OD: 20/20 Pinhole: 20/ Near: 20/ Vision: OS: 0S: 20/20 Pinhole: 20/ Near: 20/ Current glasses: OD: X Prism: OS: X Prism: Add: Refraction: Manifest: NO Automated: NO OD: X 20/ OS: X 20/ Balance: Add: +2.50 Near vision: OD : OS : OU 20 Comment: Confrontational Robertson: Full to finger counting: Right: Left: Extra Ocular Movement: Normal Pupils: Right: Round Left: Round Size: Right: 5 Left: 5 React to light: Right: Yes Left: Yes Afferent pupil defect: Right:No Grade: Left: No Grade: Note: Intra-ocular pressure (IOP): OD: 15 OS: 15 iCare Dilation: mydriacyl 1% and neosynephrine OU Mar@15:15 /corrine/ JOB BALL, [facility] Signed: 03/09/2023 15:18 JOB BALL [facility]
--- OUTSIDE RECORDS SUMMARY | 2023-09-02 16:41 | XMS_ITS | Continuity of Care Document ---
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 It does not include entries that were removed or entered in error. 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 Benign paroxysmal positional vertigo [facility] Esophageal dysphagia Active Condition [place] [facility] Glaucoma Active Condition [facility] Mixed hyperlipidemia (SNOMED CT 209288257) Active Condition 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 Diagnosis: ICD-10-CM M25.511 Pain in right shoulder [facility] Diagnosis: ICD-10-CM H90.3 Sensorineural hearing loss, bilateral Active Diagnosis 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 Diagnosis: ICD-10-CM Z23 Encounter for immunization Active Diagnosis 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 Medication Details Route Status Patient Instructions Prescription Expires Prescription Number Last Dispense Date Ordering Provider Order Date Order Qty Source ACETAMINOPH EN 500MG TAB ACETAMIN OPHEN 500MG TAB Active: Susp TAKE TWO TABLETS BY MOUTH TWICE A DAY NEEDED FOR PAIN *NOT TO EXCEED 4000MG IN 24 HOURS FROM ALL SOURCES* Aug 24, 2023 200 Aug 24, 2024 [id number] B Nov 12, 2023 Sofie FIGUEROA [facility] ORAL SUSPEND ED 08/24/2024 [id number] [facility] 2023 200 [facility] ACETAMINOPH EN 500MG TAB ACETAMIN OPHEN 500MG TAB Disconti nued TAKE TWO TABLETS BY MOUTH TWICE A DAY NEEDED FOR PAIN *NOT TO EXCEED 4000MG IN 24 HOURS FROM ALL SOURCES* May 16, 2022 200 May 17, 2023 [id number] A Mar 18, 2023 [facility] FIGUEROA [facility] OR[facility] DISCONT INUED 05/17/2023 [id number] DISHA FIGUEROA 2022 200 [facility] ASPIRIN 81MG TAB,EC ASPIRIN 81MG TAB,EC Active: Susp TAKE ONE TABLET BY MOUTH EVERY DAY Aug 24, 2023 120 Aug 24, 2024 [id number] B Nov 12, 2023 Sofie FIGUEROA [facility] ORAL SUSPEND ED 08/24/2024 [id number] DISHA FIGUEROATXALINE 2023 120 [facility] ASPIRIN 81MG TAB,EC ASPIRIN 81MG TAB,EC Disconti nued TAKE ONE TABLET BY MOUTH EVERY DAY May 16, 2022 120 May 17, 2023 [id number] A May 16, 2023 [facility]ie FIGUEROA [facility] ORAL DISCONT INUED 05/17/2023 [id number] DISHA FIGUEROATXALINE 2022 120 [facility] ATORVASTATI N CA 80MG TAB ATORVAST ATIN CA 80MG TAB Active: Susp TAKE ONE TABLET BY MOUTH AT BEDTIME Aug 24, 2023 90 Aug 24, 2024 [id number] B Nov 12, 2023 Sof[facility]OA [facility] SUSPEND ED 08/24/2024 [id number] DISHA FIGUEROATXALINE 2023 90 [facility] ATORVASTATI N CA 80MG TAB ATORVAST ATIN CA 80MG TAB Disconti nued TAKE ONE TABLET BY MOUTH AT BEDTIME May 16, 2022 90 May 17, 2023 [id number] A May 16, 2023 [facility]ie FIGUEROA [facility] ORAL DISCONT INUED 05/17/2023 [id number] DISHA FIGUEROA 2022 90 [facility] CHOLECALCIF VINAYAK 25MCG (1,000UNIT) TAB CHOLECAL CIFEROL 25MCG (1,000UN IT) TAB Active: Susp TAKE ONE TABLET BY MOUTH EVERY DAY FOR VITAMIN- D Aug 24, 2023 100 Aug 24, 2024 [id number] C Sep 14, 2023 Sofie FIGUEROA [facility] ORAL SUSPEND ED 08/24/2024 [id number] 4 DISHA FIGUEROA 2023 100 [facility] CHOLECALCIF VINAYAK 25MCG (1,000UNIT) TAB CHOLECAL CIFEROL 25MCG (1,000UN IT) TAB Disconti nued TAKE ONE TABLET BY MOUTH EVERY DAY FOR VITAMIN- D Jun 26, 2023 100 Jun 26, 2024 [id number] B Jun 26, 2023 Sofie FIGUEROA [facility] ORAL DISCONT INUED 06/26/2024 [id number] 4 DISHA FIGUEROA 2023 100 [facility] CHOLECALCIF VINAYAK 25MCG (1,000UNIT) TAB CHOLECAL CIFEROL 25MCG (1,000UN IT) TAB Disconti nued TAKE ONE TABLET BY MOUTH EVERY DAY FOR VITAMIN- D May 16, 2022 100 May 17, 2023 [id number] A Mar 18, 2023 Sofie FIGUEROA [facility] ORAL DISCONT INUED 05/17/2023 [id number] 4 DISHA FIGUEROA 2022 100 [facility] DICLOFENAC NA 1% GEL,TOP DICLOFEN AC NA 1% GEL,TOP Active: Susp APPLY 4 GRAMS TOPICALL Y TWICE A DAY FOR PAINUS E DOSE CARD IN BOX TO MEASURE DOSEMA X 32 GRAMS PER DAY FROM ALL SITES APPLIED* FOR PAIN RELIEF* Aug 24, 2023 300 Aug 24, 2024 [id number] E Sep 13, 2023 Sofie FIGUEROATXALINE [facility] TOPICA L SUSPEND ED 08/24/2024 [id number] 4 HENRYDISHA [facility] 2023 300 [facility] FLUTICASONE PROPIONATE 50MCG/SPRAY SOLN,NASAL, 16GM FLUTICAS ONE PROPIONA TE 50MCG/SP RAY SOLN,CATIE AL,16GM Active SPRAY 1 SPRAY IN EACH NOSTRIL EVERY DAY FOR ALLERGIE S FOR ALLERGIE S Aug 24, 2023 1 Aug 24, 2024 [id number] A Aug 24, 2023 Sofie FIGUEROA [facility] NASAL ACTIVE 08/24/2024 [id number] DISHA [facility] 2023 1 [facility] FLUTICASONE PROPIONATE 50MCG/SPRAY SOLN,NASAL, 16GM FLUTICAS ONE PROPIONA TE 50MCG/SP RAY SOLN,CATIE AL,16GM Disconti nued SPRAY 1 SPRAY IN EACH NOSTRIL EVERY DAY FOR ALLERGIE S FOR ALLERGIE S July 21, 2022 1 July 22, 2023 [id number] July 21, 2022 Sofie FIGUEROA [facility] NASAL DISCONT INUED 07/22/2023 [id number] DISHA FIGUEROA [facility] 2022 1 [facility] MELOXICAM 15MG TAB MELOXICA M 15MG TAB Active: Susp TAKE ONE TABLET BY MOUTH EVERY DAY NEEDED FOR PAINTA KE WITH FOOD Aug 24, 2023 90 Aug 24, 2024 [id number] D Nov 12, 2023 Sofie FIGUEROATXALINE [facility] ORAL SUSPEND ED 08/24/2024 [id number] DISHA FIGUEROA [facility] [address] [place] [address] [facility] METOPROLOL SUCCINATE 100MG TAB,SA METOPROL OL SUCCINAT E 100MG TAB,SA Disconti nued TAKE ONE-HALF TABLET BY MOUTH EVERY DAY Jan 05, 2022 45 Jan 06, 2023 [id number] Jun 25, 2022 LU GUSTAFSON W [facility] ORAL DISCONT INUED 01/06/2023 [id number] KASEY GUSTAFSON W [address] [place] [facility] [facility] METOPROLOL SUCCINATE 100MG TAB,SA METOPROL OL SUCCINAT E 100MG TAB,SA Disconti nued TAKE ONE-HALF TABLET BY MOUTH EVERY DAY July 21, 2022 45 July 22, 2023 [id number] A Sep 23, 2022 Sofie FIGUEROATXALINE [facility] ORAL DISCONT INUED (EDIT) 07/22/2023 [id number] 3 DISHA FIGUEROA 2022 45 [place] [facility] METOPROLOL SUCCINATE 50MG TAB,SA METOPROL OL SUCCINAT E 50MG TAB,SA Active: Susp TAKE ONE TABLET BY MOUTH EVERY DAY Aug 24, 2023 90 Aug 24, 2024 [id number] A Nov 27, 2023 Sofie FIGUEROA [facility] ORAL SUSPEND ED 08/24/2024 [id number] DISHA FIGUEROA [address] [place] [address] [facility] METOPROLOL SUCCINATE 50MG TAB,SA METOPROL OL SUCCINAT E 50MG TAB,SA Disconti nued TAKE ONE TABLET BY MOUTH EVERY DAY July 21, 2022 90 July 22, 2023 [id number] Jun 10, 2023 Sofie FIGUEROA [facility] ORAL DISCONT INUED 07/22/2023 [id number] DISHA FIGUEROA [address] [place] [address] [facility] MULTIVITS W/MINERALS TAB/CAP (NO VIT K) MULTIVIT S W/MINERA LS TAB/CAP (NO VIT K) Active TAKE 1 TABLET BY MOUTH EVERY DAY Aug 24, 2023 100 Aug 24, 2024 [id number] C Aug 24, 2023 Sofie FIGUEROAPREETI [facility] ORAL ACTIVE 08/24/2024 [id number] 4 HENRYDISHA SCHWARTZ 2023 100 [facility] [place] NON VA MED NOT LISTED NON VA MED NOT LISTED Non-VA USE ALEVE PRN Feb 23, 2016 Non-VA Document ed by: LU GUSTAFSON Document ed at: [facility] ACTIVE KASEY GUSTAFSON [address] [facility] TIMOLOL MALEATE 0.5% GEL,OPH TIMOLOL MALEATE 0.5% GEL,OPH INSTILL 1 DROP TO BOTH EYES EVERY MORNING FOR GLAUCOMA Jan 17, 2022 15 Jan 18, 2023 [id number] C Dec 04, 2022 RUND,CAR ROLL D [facility] OPHTHA LMIC 01/18/2023 [id number] 3 TAMMYPERRY OLL D [address] [place] [facility] [facility] TIMOLOL MALEATE 0.5% SOLN,OPH TIMOLOL MALEATE 0.5% SOLN,OPH Active INSTILL 1 DROP IN BOTH EYES EVERY MORNING FOR GLAUCOMA FOR GLAUCOMA Mar 09, 2023 10 Mar 09, 2024 [id number] July 19, 2023 Sofie POWELL [facility] OPHTHA LMIC ACTIVE 03/09/2024 [id number] DISHA POWELL 2023 10 [facility] TRAVOPROST Z 0.004% SOLN,OPH TRAVOPRO ST Z 0.004% SOLN,OPH Active: Susp INSTILL 1 DROP IN BOTH EYES AT BEDTIME FOR GLAUCOMA FOR GLAUCOMA Mar 09, 2023 7.5 Mar 09, 2024 [id number] Sep 22, 2023 [facility] OPHTHA LMIC SUSPEND ED 03/09/2024 [id number] DISHA POWELL 2023 7.[address] [facility] TRAVOPROST Z 0.004% SOLN,OPH TRAVOPRO ST Z 0.004% SOLN,OPH INSTILL 1 DROP IN BOTH EYES AT BEDTIME FOR GLAUCOMA Jan 17, 2022 7.5 Jan 18, 2023 [id number] C Dec 04, 2022 RUND,CAR ROLL D [facility] OPHTHA LMIC 01/18/2023 [id number] RUND,PERRY OLL D 2021 7.5 [facility] VANICREAM VANICREA M Active APPLY THIN LAYER TWICE A DAY FOR DRY SKIN Aug 24, 2023 908 Aug 24, 2024 [id number] E Aug 24, 2023 Sofie FIGUEROA [facility] ACTIVE 08/24/2024 [id number] 4 DISHA FIGUEROA SGHINA 2023 908 [facility] Disconti nued APPLY THIN LAYER TWICE A DAY FOR DRY SKIN July 21, 2022 908 July 22, 2023 [id number] D July 21, 2022 Sofie FIGUEROA [facility] L DISCONT INUED 07/22/2023 [id number] 3 DISHA FIGUEROA SGTXNA 2022 908 [facility] Immunizations Combined list of available immunizations from the Department of Defense and Veterans Affairs facilities. Immunization Series Date Given Administered By Site Reaction Lot Number CVX Code Drug U.[place]. Senator Status Comments Source RSV, BIVALENT, PROTEIN SUBUNIT RSVPREF, DILUENT RECONSTITUTED , 0.5 ML, PF 1 2023 LUPE GALLEGOS LEFT DELTO ID [id number] 305 complet ed [facility] COVID-19 (PFIZER), MRNA, LNP-S, PF, BIJAL-SUCROSE, 30 MCG/0.3 ML (AGES 12+ YEARS) 2022 309 complet ed [facility] INFLUENZA, HIGH-DOSE, QUADRIVALENT 2022 JUAN DIOR LEFT DELTO ID [id number] 197 complet ed [facility] TDAP 2022 RADHA,HABT E LEFT DELTO ID [id number] 115 complet ed [facility] COVID-19 (PFIZER), MRNA, LNP-S, BIVALENT BOOSTER, PF, 30 MCG/0.3 ML DOSE 1 2021 300 complet ed PFR; [id number]; 3 [facility] INFLUENZA, HIGH-DOSE, QUADRIVALENT, PF 2021 197 complet ed [facility] INFLUENZA, UNSPECIFIED FORMULATION 2021 88 complet ed [facility] COVID-19 (MODERNA), MRNA, LNP-S, PF, 100 MCG/0.5ML DOSE OR 50 MCG/0.25ML DOSE 2021 207 complet ed [facility] COVID-19 (PFIZER), MRNA, LNP-S, PF, 30 MCG/0.3 ML DOSE 3 2020 208 complet ed PFR; [id number]; 1 [facility] INFLUENZA, INJECTABLE, QUADRIVALENT, PRESERVATIVE FREE 2020 150 complet ed [facility] COVID-19 (PFIZER), MRNA, LNP-S, PF, 30 MCG/0.3 ML DOSE 2 2020 208 complet ed PFR; [id number]; 1 [facility] COVID-19 (PFIZER), MRNA, LNP-S, PF, 30 MCG/0.3 ML DOSE 1 2020 208 complet ed PFR; [id number]; 1 [facility] ZOSTER RECOMBINANT 2 2019 187 complet ed [facility] INFLUENZA, SEASONAL, INJECTABLE, PRESERVATIVE FREE 2018 140 complet ed [facility] ZOSTER RECOMBINANT 1 2018 187 complet ed [facility] INFLUENZA, SEASONAL, INJECTABLE, PRESERVATIVE FREE 2017 140 complet ed [facility] INFLUENZA, HIGH DOSE SEASONAL 2016 135 complet ed [facility] INFLUENZA, HIGH DOSE SEASONAL 2015 135 complet ed [facility] INFLUENZA, SEASONAL, INJECTABLE, PRESERVATIVE FREE 2014 140 complet ed [facility] PNEUMOCOCCAL CONJUGATE PCV 13 2014 133 complet ed [employer] [id number] 05/20 [facility] INFLUENZA, UNSPECIFIED FORMULATION 2013 88 complet ed [facility] INFLUENZA, UNSPECIFIED FORMULATION 2012 88 complet ed [facility] TDAP 2012 115 complet ed [employer] hKline [id number] 04/26/15 [facility] ZOSTER LIVE 2011 121 complet ed [employer] [id number] [facility] TD(ADULT) UNSPECIFIED FORMULATION 2008 139 complet ed [facility] PNEUMOCOCCAL POLYSACCHARID E PPV23 2008 33 complet ed [facility] TD (ADULT), 5 LF TETANUS TOXOID, PRESERVATIVE FREE, ADSORBED 2008 113 complet ed [facility] PNEUMOCOCCAL, UNSPECIFIED FORMULATION 2008 109 complet ed [facility] Results Combined list of recent chemistry, hematology and other laboratory results from Department of Defense and Veterans Affairs, ranging from 15 months to all on record, depending upon the facility. Order Name Results Value Reference Range Date Interpretation Specimen Comments Source LIPID PANEL,NON -FASTING CHOLESTEROL [MASS/VOLUM E] IN SERUM OR PLASMA 122 mg/dL <199 - 199 07/21 Specimen Type: PLASMA No comment entered. Ordering Provider: CAITY FIGUEROA Report Released Date/Time: July 19, 2022 03:38 PM Reporting Lab: [facility] [address] Performing Lab: [facility] [address] [place] [facility] LIPID PANEL,NON -FASTING CHOLESTEROL IN HDL [MASS/VOLUM E] IN SERUM OR PLASMA 40 mg/dL 40 07/21 Specimen Type: PLASMA No comment entered. Ordering Provider: CAITY FIGUEROA Report Released Date/Time: July 19, 2022 03:38 PM Reporting Lab: [facility] [address] Performing Lab: [facility] [address] [place] [facility] LIPID PANEL,NON -FASTING CHOLESTEROL IN LDL [MASS/VOLUM E] IN SERUM OR PLASMA BY CALCULATION 69 mg/dL <99 - 99 07/21 Specimen Type: PLASMA No comment entered. Ordering Provider: CAITY FIGUEROA Report Released Date/Time: July 19, 2022 03:38 PM Reporting Lab: [facility] [address] Performing Lab: [facility] [address] [place] [facility] LIPID PANEL,NON -FASTING CHOLESTEROL IN VLDL [MASS/VOLUM E] IN SERUM OR PLASMA BY CALCULATION 13 mg/dL <29 - 29 07/21 Specimen Type: PLASMA No comment entered. Ordering Provider: CAITY FIGUEROA Report Released Date/Time: July 19, 2022 03:38 PM Reporting Lab: [facility] [address] Performing Lab: [facility] [address] [place] [facility] LIPID PANEL,NON -FASTING CHOLESTEROL NON HDL [MASS/VOLUM E] IN SERUM OR PLASMA 82 mg/dL <129 - 129 07/21 Specimen Type: PLASMA No comment entered. Ordering Provider: CAITY FIGUEROA Report Released Date/Time: July 19, 2022 03:38 PM Reporting Lab: [facility] [address] Performing Lab: [facility] [address] [place] [facility] LIPID PANEL,NON -FASTING TRIGLYCERID E [MASS/VOLUM E] IN SERUM OR PLASMA 65 mg/dL <149 - 149 07/21 Specimen Type: PLASMA No comment entered. Ordering Provider: CAITY FIGUEROA Report Released Date/Time: July 19, 2022 03:38 PM Reporting Lab: [facility] [address] Performing Lab: [facility] [address] [place] [facility] BASIC METABOLIC PANEL+MG CREATININE [MASS/VOLUM E] IN SERUM OR PLASMA 0.9 mg/dL 0.7 - 1.2 07/21 Specimen Type: PLASMA No comment entered. Ordering Provider: CAITY FIGUEROA Report Released Date/Time: July 19, 2022 03:38 PM Reporting Lab: [facility] [address] Performing Lab: [facility] [address] [place] [facility] BASIC METABOLIC PANEL+MG UREA NITROGEN [MASS/VOLUM E] IN SERUM OR PLASMA 18 mg/dL 8 - 26 07/21 Specimen Type: PLASMA No comment entered. Ordering Provider: CAITY FIGUEORA Report Released Date/Time: July 19, 2022 03:38 PM Reporting Lab: [facility] [address] Performing Lab: [facility] [address] [place] [facility] BASIC METABOLIC PANEL+MG GLUCOSE [MASS/VOLUM E] IN SERUM OR PLASMA 101 mg/dL 70 - 100 07/21 H Specimen Type: PLASMA No comment entered. Ordering Provider: CAITY FIGUEROA Report Released Date/Time: July 19, 2022 03:38 PM Reporting Lab: [facility] [address] Performing Lab: [facility] [address] [place] [facility] BASIC METABOLIC PANEL+MG SODIUM [MOLES/VOLU ME] IN SERUM OR PLASMA 137 mmol/L 136 - 145 07/21 Specimen Type: PLASMA No comment entered. Ordering Provider: CAITY FIGUEROA Report Released Date/Time: July 19, 2022 03:38 PM Reporting Lab: [facility] [address] Performing Lab: [facility] [address] [place] [facility] BASIC METABOLIC PANEL+MG POTASSIUM [MOLES/VOLU ME] IN SERUM OR PLASMA 4.3 mmol/L 3.5 - 5.1 07/21 Specimen Type: PLASMA No comment entered. Ordering Provider: CAITY FIGUEROA Report Released Date/Time: July 19, 2022 03:38 PM Reporting Lab: [facility] [address] Performing Lab: [facility] [address] [place] [facility] BASIC METABOLIC PANEL+MG CHLORIDE [MOLES/VOLU ME] IN SERUM OR PLASMA 105 mmol/L 98 - 107 07/21 Specimen Type: PLASMA No comment entered. Ordering Provider: CAITY FIGUEROA Report Released Date/Time: July 19, 2022 03:38 PM Reporting Lab: [facility] [address] Performing Lab: [facility] [address] [place] [facility] BASIC METABOLIC PANEL+MG CARBON DIOXIDE, TOTAL [MOLES/VOLU ME] IN SERUM OR PLASMA 26 mmol/L 22 - 29 07/21 Specimen Type: PLASMA No comment entered. Ordering Provider: CAITY FIGUEROA Report Released Date/Time: July 19, 2022 03:38 PM Reporting Lab: [facility] [address] Performing Lab: [facility] [address] [place] [facility] BASIC METABOLIC PANEL+MG CALCIUM [MASS/VOLUM E] IN SERUM OR PLASMA 8.8 mg/dL 8.4 - 10.2 07/21 Specimen Type: PLASMA No comment entered. Ordering Provider: CAITY FIGUEROA Report Released Date/Time: July 19, 2022 03:38 PM Reporting Lab: [facility] [address] Performing Lab: [facility] [address] [place] [facility] BASIC METABOLIC PANEL+MG MAGNESIUM [MASS/VOLUM E] IN SERUM OR PLASMA 1.9 mg/dL 1.6 - 2.6 07/21 Specimen Type: PLASMA No comment entered. Ordering Provider: CAITY FIGUEROA Report Released Date/Time: July 19, 2022 03:38 PM Reporting Lab: [facility] [address] Performing Lab: [facility] [address] [place] [facility] BASIC METABOLIC PANEL+MG ANION GAP IN SERUM OR PLASMA 6 mmol/L 5 - 15 07/21 Specimen Type: PLASMA No comment entered. Ordering Provider: CAITY FIGUEROA Report Released Date/Time: July 19, 2022 03:38 PM Reporting Lab: [facility] [address] Performing Lab: [facility] [address] [place] [facility] BASIC METABOLIC PANEL+MG GLOMERULAR FILTRATION RATE/1.73 SQ M.PREDICTED [VOLUME RATE/AREA] IN SERUM, PLASMA OR BLOOD BY CREATININE- BASED FORMULA (CKD-EPI) 87 60 07/21 Specimen Type: PLASMA No comment entered. Ordering Provider: CAITY FIGUEROA Report Released Date/Time: July 19, 2022 03:38 PM Reporting Lab: [facility] [address] Performing Lab: [facility] [address] [place] [facility] CBC & DIFF LEUKOCYTES [#/VOLUME] IN BLOOD BY AUTOMATED COUNT 7.57 10*3/u L 4.0 - 11.0 07/21 Specimen Type: BLOOD Comment: Automated Differentia l Performed Ordering Provider: CAITY FIGUEROA Report Released Date/Time: July 19, 2022 03:38 PM Reporting Lab: [facility] [address] Performing Lab: [facility] [address] [place] [facility] CBC & DIFF ERYTHROCYTE S [#/VOLUME] IN BLOOD BY AUTOMATED COUNT 5.06 10*6/u L 4.6 - 6.2 07/21 Specimen Type: BLOOD Comment: Automated Differentia l Performed Ordering Provider: CAITY FIGUEROA Report Released Date/Time: July 19, 2022 03:38 PM Reporting Lab: [facility] [address] Performing Lab: [facility] [address] [place] [facility] CBC & DIFF HEMOGLOBIN [MASS/VOLUM E] IN BLOOD 15.6 g/dL 13.5 - 17.9 07/21 Specimen Type: BLOOD Comment: Automated Differentia l Performed Ordering Provider: CAITY FIGUEROA Report Released Date/Time: July 19, 2022 03:38 PM Reporting Lab: [facility] [address] Performing Lab: [facility] [address] [place] [facility] CBC & DIFF HEMATOCRIT [VOLUME FRACTION] OF BLOOD BY AUTOMATED COUNT 46.6 41 - 54 07/21 Specimen Type: BLOOD Comment: Automated Differentia l Performed Ordering Provider: CAITY FIGUEROA Report Released Date/Time: July 19, 2022 03:38 PM Reporting Lab: [facility] [address] Performing Lab: [facility] [address] [place] [facility] CBC & DIFF MCV [ENTITIC VOLUME] BY AUTOMATED COUNT 92.1 fL 80 - 100 07/21 Specimen Type: BLOOD Comment: Automated Differentia l Performed Ordering Provider: CAITY FIGUEROA Report Released Date/Time: July 19, 2022 03:38 PM Reporting Lab: [facility] [address] Performing Lab: [facility] [address] [place] [facility] CBC & DIFF MCH [ENTITIC MASS] BY AUTOMATED COUNT 30.8 pg 27 - 33 07/21 Specimen Type: BLOOD Comment: Automated Differentia l Performed Ordering Provider: CAITY FIGUEROA Report Released Date/Time: July 19, 2022 03:38 PM Reporting Lab: [facility] [address] Performing Lab: [facility] [address] [place] [facility] CBC & DIFF MCHC [MASS/VOLUM E] BY AUTOMATED COUNT 33.5 g/dL 32.0 - 37.5 07/21 Specimen Type: BLOOD Comment: Automated Differentia l Performed Ordering Provider: CAITY FIGUEROA Report Released Date/Time: July 19, 2022 03:38 PM Reporting Lab: [facility] [address] Performing Lab: [facility] [address] [place] [facility] CBC & DIFF PLATELETS [#/VOLUME] IN BLOOD BY AUTOMATED COUNT 168 10*3/u L 150 - 400 07/21 Specimen Type: BLOOD Comment: Automated Differentia l Performed Ordering Provider: CAITY FIGUEROA Report Released Date/Time: July 19, 2022 03:38 PM Reporting Lab: [facility] [address] Performing Lab: [facility] [address] [place] [facility] CBC & DIFF PLATELET MEAN VOLUME [ENTITIC VOLUME] IN BLOOD BY AUTOMATED COUNT 9.1 fL 7.4 - 10.4 07/21 Specimen Type: BLOOD Comment: Automated Differentia l Performed Ordering Provider: CAITY FIGUEROA Report Released Date/Time: July 19, 2022 03:38 PM Reporting Lab: [facility] [address] Performing Lab: [facility] [address] [place] [facility] CBC & DIFF NEUTROPHILS /100 LEUKOCYTES IN BLOOD BY MANUAL COUNT 58.7 07/21 Specimen Type: BLOOD Comment: Automated Differentia l Performed Ordering Provider: CAITY FIGUEROA Report Released Date/Time: July 19, 2022 03:38 PM Reporting Lab: [facility] [address] Performing Lab: [facility] [address] [place] [facility] CBC & DIFF LYMPHOCYTES /100 LEUKOCYTES IN BLOOD BY MANUAL COUNT 26.4 07/21 Specimen Type: BLOOD Comment: Automated Differentia l Performed Ordering Provider: CAITY FIGUEROA Report Released Date/Time: July 19, 2022 03:38 PM Reporting Lab: [facility] [address] Performing Lab: [facility] [address] [place] [facility] CBC & DIFF MONOCYTES/1 00 LEUKOCYTES IN BLOOD BY AUTOMATED COUNT 11.6 07/21 Specimen Type: BLOOD Comment: Automated Differentia l Performed Ordering Provider: CAITY FIGUEROA Report Released Date/Time: July 19, 2022 03:38 PM Reporting Lab: [facility] [address] Performing Lab: [facility] [address] [place] [facility] & DIFF EOSINOPHILS /100 LEUKOCYTES IN BLOOD BY AUTOMATED COUNT 2.4 07/21 Specimen Type: BLOOD Comment: Automated Differentia l Performed Ordering Provider: CAITY FIGUEROA Report Released Date/Time: July 19, 2022 03:38 PM Reporting Lab: [facility] [address] Performing Lab: [facility] [address] [place] [facility] CBC & DIFF BASOPHILS/1 00 LEUKOCYTES IN BLOOD BY MANUAL COUNT 0.5 07/21 Specimen Type: BLOOD Comment: Automated Differentia l Performed Ordering Provider: CAITY FIGUEROA Report Released Date/Time: July 19, 2022 03:38 PM Reporting Lab: [facility] [address] Performing Lab: [facility] [address] [place] [facility] CBC & DIFF ERYTHROCYTE DISTRIBUTIO N WIDTH [RATIO] BY AUTOMATED COUNT 14.2 11.5 - 14.5 07/21 Specimen Type: BLOOD Comment: Automated Differentia l Performed Ordering Provider: CAITY FIGUEROA Report Released Date/Time: July 19, 2022 03:38 PM Reporting Lab: [facility] [address] Performing Lab: [facility] [address] [place] [facility] CBC & DIFF LYMPHOCYTES [#/VOLUME] IN BLOOD BY AUTOMATED COUNT 2.00 10*3/u L 1.0 - 4.0 07/21 Specimen Type: BLOOD Comment: Automated Differentia l Performed Ordering Provider: CAITY FIGUEROA Report Released Date/Time: July 19, 2022 03:38 PM Reporting Lab: [facility] [address] Performing Lab: [facility] [address] [place] [facility] CBC & DIFF MONOCYTES [#/VOLUME] IN BLOOD BY AUTOMATED COUNT 0.88 10*3/u L 0.1 - 1.0 07/21 Specimen Type: BLOOD Comment: Automated Differentia l Performed Ordering Provider: CAITY FIGUEROA Report Released Date/Time: July 19, 2022 03:38 PM Reporting Lab: [facility] [address] Performing Lab: [facility] [address] [place] [facility] CBC & DIFF NEUTROPHILS [#/VOLUME] IN BLOOD BY AUTOMATED COUNT 4.44 10*3/u L 2.0 - 7.7 07/21 Specimen Type: BLOOD Comment: Automated Differentia l Performed Ordering Provider: CAITY FIGUEROA Report Released Date/Time: July 19, 2022 03:38 PM Reporting Lab: [facility] [address] Performing Lab: [facility] [address] [place] [facility] CBC & DIFF EOSINOPHILS [#/VOLUME] IN BLOOD BY AUTOMATED COUNT 0.18 10*3/u L 0 - 0.5 07/21 Specimen Type: BLOOD Comment: Automated Differentia l Performed Ordering Provider: CAITY FIGUEROA Report Released Date/Time: July 19, 2022 03:38 PM Reporting Lab: [facility] [address] Performing Lab: [facility] [address] [facility] CBC & DIFF BASOPHILS [#/VOLUME] IN BLOOD BY AUTOMATED COUNT 0.04 10*3/u L 0 - 0.2 07/21 Specimen Type: BLOOD Comment: Automated Differentia l Performed Ordering Provider: CAITY FIGUEROA Report Released Date/Time: July 19, 2022 03:38 PM Reporting Lab: [facility] [address] Performing Lab: [facility] [address] [facility] CBC & DIFF IG(META,MYE LO,PRO) 0.4 07/21 Specimen Type: BLOOD Comment: Automated Differentia l Performed Ordering Provider: CAITY FIGUEROA Report Released Date/Time: July 19, 2022 03:38 PM Reporting Lab: [facility] [address] Performing Lab: [facility] [address] [facility] CBC & DIFF IMMATURE GRANULOCYTE S [PRESENCE] IN BLOOD BY AUTOMATED COUNT 0.03 10*3/u L 0 - 0.1 07/21 Specimen Type: BLOOD Comment: Automated Differentia l Performed Ordering Provider: CAITY FIGUEROA Report Released Date/Time: July 19, 2022 03:38 PM Reporting Lab: [facility] [address] Performing Lab: [facility] [address] [facility] Vital Signs Combined list of inpatient and outpatient Vital Signs from Department of Defense and Veterans Affairs, ranging from 12 months to all on record, depending upon the facility. Vital Sign Value Date Comments Source Encounters Combined list of: 1) Encounters from Department of Veterans Affairs facilities going back up to thelast 18 months. 2) Encounters from the Department of Defense facilities going back up to 280 months. 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
CHANTALE PETERSON 03/18 [facility] Outpatient Encounter [id number] ASIF FRANK S 05/[address] [facility] Outpatient Encounter [id number] GLENN HOPPER ICA E 07/[address] 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
HENRYMYA RIVER GHINA 07/[address] [facility] OFFICE O/P EST SF 10-19 MIN [id number] Diagnos is: ICD-10- CM Z96.1 Presenc e of intraoc ular lens
TIFFANIE POWELL A 07/29 [facility] Outpatient Encounter [id number] MICHELET HOPKINS 11/[address] [facility] IMMUNIZATI ON ADMIN [id number] Diagnos is: ICD-10- CM Z23 Encount er for immuniz ation<b r/> SYLVESTER ARAGON 12/01 [facility] Outpatient Encounter [id number] 01/[address] [facility] EXTENDED VISUAL FIELD XM [id number] Diagnos is: ICD-10- CM H40.003 Preglau coma, unspeci fied, bilater al
YODAMON ShaikhE 03/09 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 OFF/OP EST MAY X REQ PHY/QHP [id number] Diagnos is: ICD-10- CM Z01.118 Encntr for exam of ears and hearing w oth abnorma l finding s
FRANCIS CRUZ K 04/04 [facility] CONFORMITY EVALUATION [id number] Diagnos is: ICD-10- CM H90.3 Sensori neural hearing loss, bilater al
FRANCIS CRUZ 05/02 [facility] Outpatient Encounter [id number] 08/02 [facility] SELF CARE MNGMENT TRAINING [id number] Diagnos is: ICD-10- CM M25.511 Pain in right shoulde r
SLATTENGRE N,RISHI 08/06 [facility] Outpatient Encounter [id number] Ratna TURNER 08/07 [facility] PHYSICAL PERFORMANC E TEST [id number] Diagnos is: ICD-10- CM M25.511 Pain in right shoulde r
SLATTENGRE N,RISHI 08/17 [facility] OFF/OP CONSLTJ NEW/EST HI 55 [id number] Diagnos is: ICD-10- CM M25.511 Pain in right shoulde r
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
HENRY,MIS GHINA 08/23 [facility] Social History Combined list of available smoking, tobacco, and other social history from Department of Defense and Veterans Affairs facilities. Social History Type Response Date Comment Sourc e Tobacco [facility] status [facility]23 [facility]/2022 [facility] 08/05/2021 [facility] of [facility] 1 5 YRS OR MORE 12/25/2018 [facility] 12/14/2017 [facility] History of tobacco use FORMER TOBACCO US ER 7Y OR GREATER 12/22/2016 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 History of tobacco use FORMER TOBACCO US ER 7Y OR GREATER 01/08/2015 [facility] History of tobacco use FORMER TOBACCO US ER 7Y OR GREATER 01/01/2014 [facility] History of tobacco use FORMER TOBACCO US ER 7Y OR GREATER 04/01/2010 [facility] Plan of Care List of future care activities from Department of Veterans Affairs facilities. Additional future care activities may be listed in the Assessment and Plan section. Date/Time Care Activity Care Activity Detail Facili ty 09/19/2023 AMBULATORY - REHAB MEDICINE AMBULATORY - REHAB MEDICINE [facility] 10/23/2023 AMBULATORY - SURGERY [facility]ULATORY - SURGERY [facility] 10/31/2023 AMBULATORY - SURGERY AMBULATORY - SURGERY [facility] 08/24/2023 Pharmacy - Clinic Me dication Order [facility] Advance Directives List of completed, amended, or rescinded Advance Directives on record at Department of [facility] facilities. An actual copy of the Directive is not included. Date Advance Directive Provider Source 01/02/2014 ADVANCE DIRECTIVE KATARZYNA [facility]N [facility] 01/02/2014 ADVANCE DIRECTIVE DISCUSSION KATARZYNA LINCOLN [facility]
--- OUTSIDE RECORDS SUMMARY | 2023-09-02 16:41 | XMS_ITS | Encounter Summary ---
Author Name [facility] [place] [facility] [place] Address [address] [place] [address] Care Team Providers Care Diamond Sorter Name Role Phone ISACC FIGUEROA Primary Care Provider Unavailab le Insurance Providers: [...] Edwards's Name Patient's Relationship to Policy [place] ([place]) MEDICARE ADVANTAGE [facility] Mar 06, 2018 [id number] [phone] Arabella BRADFORD PATIENT MEDICARE (WNR) MEDICARE (M) PART A Oct 05, 2007 PART A [id number] [phone] Arabella BRADFORD PATIENT MEDICARE (WNR) MEDICARE (M) PART B Oct 05, 2007 PART B [id number] [phone] Arabella BRADFORD PATIENT Selected Encounter This section includes the information on record at CT for the Encounter. Date/Time Encounter Type Encounter Description Reason Provider Source Apr 04, 2023 09:45 AM OFF/OP EST JULY X REQ PHY/QHP AUDIOLOGY ICD-10-CM Z01.118 Encntr for exam of ears and hearing w oth abnormal findings YUVAL CRUZ TTA K IHE Encounter Template Text not used by CT Assessments - Encounter Diagnoses This section includes the primary and secondary diagnoses documented for the Encounter. Date/Time Primary/Secondary Diagnosis Diagnosis Name Provider Source Apr 04, 2023 10:22 AM PRIMARY Encntr for exam of ears and hearing w oth abnormal findings MONICA CRUZ [facility] Apr 04, 2023 10:22 AM SECONDARY Encounter for fitting and adjustment of hearing aid MONICA CRUZ [facility] Apr 04, 2023 10:22 AM SECONDARY Impacted cerumen, bilateral RUHR,BOB A [facility] Apr 04, 2023 10:22 AM SECONDARY Sensorineural hearing loss, bilateral MONICA CRUZ [facility] Plan of Treatment: Future Appointments (+ 6 months) and Future Tests (+/- 45 days) The Plan of Treatment section includes future care activities for the [facility] This section includes future appointments and future orders which are active, pending or scheduled. Future Appointments This section includes appointments that were scheduled to occur 6 months from the date of the Encounter, up to a maximum of 20 appointments. The data comes from all [facility]. Appointment Date/Time Appointment Type Appointme nt Facility Name May 02, 2023 01:30 PM AMBULATORY - SURGERY [facility] Aug 07, 2023 03:00 PM AMBULATORY - REHAB MEDICIN [facility] Aug 18, 2023 09:30 [facility] Aug 21, 2023 10:00 AM [place] - [place] [facility] Aug 21, 2023 10:30 AM AMBULATORY - SURGERY [facility] Aug 24, 2023 10:30 AM AMBULATORY - MEDICINE [place] [facility] Sep 19, 2023 09:30 AM AMBULATORY - REHAB MEDICIN [facility] Social History: Smoking Status (Most current) and Tobacco Use (All prior to encounter date) This section includes the most current, and the historical, smoking and tobacco- related health factors from the CT facility where the Encounter took place. Current Smoking Status This section includes the most current smoking, or tobacco-related health factor, from the CT facility where the Encounter took place. Date/Time Current Smoking Status Comment Facil ity July 21, 2022 10:00 AM VA-TOBACCO NEVER USED [facility] Tobacco Use History This section includes a history of the smoking, or tobacco-related health factors, that were collected on or before the date of the Encounter. The data comes from the CT facility where the Encounter took place. Date/Time Smoking Status/Tobacco Use Comment F acility Aug 05, 2021 11:30 AM VA-TOBACCO NEVER USED [facility] Dec 25, 2018 09:57 AM VA-TOBACCO FORMER USER [facility] Dec 25, 2018 09:[address]-TOBACCO QUIT 15 YRS OR MORE [facility] Dec 14, 2017 09:11 AM VA-TOBACCO NEVER USED [facility] Dec 22, 2016 10:22 AM FORMER TOBACCO USER 7Y OR GREATE R [facility] Jan 20, 2016 10:51 AM LIFETIME NON-TOBACCO USER [facility] Jan 08, 2015 10:35 AM FORMER TOBACCO USER 7Y OR GREATE R [facility] Jan 01, 2014 04:02 PM FORMER TOBACCO USER 7Y OR GREATE R [facility] Apr 01, 2010 10:12 AM FORMER TOBACCO USER 7 OR GREATE R [facility] Advance Directives: All historical and current Section Date Range: From patient's date of to the date document was created. This section includes ALL of a patient's completed or amended CT Advance and Rescinded Directives. The entries below indicate that a directive exists for the patient, but an actual copy is not included with this document. The data comes from all [facility]. Date Advance Directives Provider Source Jan 02, 2014 ADVANCE DIRECTIVE KATARZYNA [facility]N [facility] Jan 02, 2014 ADVANCE DIRECTIVE DISCUSSION KATARZYNA LINCOLN [facility] Encounter Notes: All associated encounter notes This section contains the clinical notes associated to the Encounter. Date/Time Encounter Note(s) Provider Source Apr 04, 2023 10:13 AM AUDIOLOGY NOTE: LOCAL TITLE: AUDIOLOGY CLINIC NURSING NOTE STANDARD TITLE: AUDIOLOGY NOTE DATE OF NOTE: APR 04, 2023@10:13 ENTRY DATE: APR 04, 2023@10:13:56 AUTHOR: BOB YOON COSIGNER: URGENCY: STATUS: COMPLETED Reason for visit: HAE, AU cerumen removal Effusion (drainage) in ear canals: No Recent Otalgia (pain) in ear canals?No Puritis in ear canals: No History of Ear Surgery: No Currently wears hearing aids: Yes Cerumen Removed: Yes AU bilateral cerumen impactions removed Patient tolerated well Nurse Patient Education: Participant(s) can repeat instructions to Refrain from using cotton swabs in ears Ear Care handout provided, uses warm water rinses as needed PLAN: Follow up in: PRN (as needed) /corrine/ BOB YOON LPN LICENSED PRACTICAL NURSE Signed: 04/04/2023 12:47 BOB YOON [facility] Apr 04, 2023 07:18 AM AUDIOLOGY NOTE: LOCAL TITLE: AUDIOLOGY CLINIC NOTE STANDARD TITLE: AUDIOLOGY NOTE DATE OF NOTE: APR 04, 2023@07:18 ENTRY DATE: APR 04, 2023@07:18:14 AUTHOR: FRANCIS CRUZ COSIGNER: URGENCY: STATUS: COMPLETED DIAGNOSIS: Encounter for examination of ears and hearing Sensorineural loss, bilateral REASON FOR VISIT: HEARING EVALUATION AND HEARING AID SELECTION, 60 MINUTES: was seen in the clinic today for a comprehensive audiologic evaluation, hearing aid selection, hearing aid service, and counseling. LOCATION OF VISIT (ROOM NUMBER): [facility] The was last seen in this clinic on 03/12/2016. The is NOT Service Connected for Hearing Loss / Tinnitus. was unaccompanied. The currently wears the following hearing aids: Hearing Aids (Right and Left): 03/12/16 GN RESOUND LINX2 TS 61 MINI DIONICIO [id number] R [address] [place] 03/12/16 GN RESOUND LINX2 TS 61 [place]I DIONICIO [id number] L 618 [place] HISTORY: seen with a history of sensorineural hearing loss. He reported a possible decrease in hearing. Patient is eligible for new hearing aids. [place] stated he recently started trying to wear his hearing aids more. Previously, he could not tolerate the sound/feel of them in his ears. He stated now they are more comfortable, but there is too much background noise and he still has trouble hearing with them in. PROCEDURES: OTOSCOPY: Bilaterally: Impacted cerumen Removed by Nurse. Normal anatomy post-removal. TYMPANOMETRY: RIGHT EAR: Type A Pressure: Normal Compliance: Normal Volume: Normal LEFT EAR: Type A Pressure: Normal Compliance: Normal Volume: Normal AUDIOMETRICS: Air conduction, bone conduction and speech testing were completed bilaterally. Transducer: Insert phones, Circumaural headphones Reliability: Good RIGHT EAR (Hz) 250 607 272 1595 1500 2000 3000 4000 6000 8000 Air: See Audiogram Display under Tools / AUDIOLOGY / ROES or see DON Database Bone: See Audiogram Display under Tools / AUDIOLOGY / ROES or see DON Database LEFT EAR (Hz) 250 062 126 3217 1500 2000 3000 4000 6000 8000 Air: See Audiogram Display under Tools / AUDIOLOGY / ROES or see DON Database Bone: See Audiogram Display under Tools / AUDIOLOGY / ROES or see DON Database - All thresholds are in dB HL * = Masked Threshold SRT: Spondees Right: 15 dB HL Left: 15 dB HL Pure tone results were consistent with speech receptionist/telephone operator thresholds. WORD RECOGNITION: / - word list RIGHT EAR: 68% Level: 75* dB LEFT EAR: 76% Level: 75* dB SUMMARY: Hearing is worse from 0494-5616 Hz in the right ear, and at 8000 Hz in the left ear as compared to the last examination. No asymmetries are noted today. RIGHT EAR: Normal sloping to moderately severe sensorineural hearing loss with fair word recognition. LEFT EAR: Normal sloping to moderately severe sensorineural hearing loss with good word recognition. DISCUSSION: - Results were reviewed with the patient. - continues to be a good candidate for hearing aid use. - [place] has hearing loss that interferes with or restricts communication to the extent that it affects their active participation in the provision of health care services as determined by the machine bander and cellophaner helper. AMPLIFICATION: - The 's current hearing aids were cleaned and checked. Changed wax traps and domes. Listening check was good following cleaning. Attempted to re- program hearing aids, however, was unable to connect to older software. - Different styles/technologies were reviewed with consideration given to veterans listening situations and lifestyle needs. is interested in pursuing similar hearing aids to current devices. He would like rechargeable hearing aids. He would also like a TV streamer. - [place] has an iPhone and uses Bluetooth technology. - counseled using a standard curriculum on expectations for new hearing aids, VA procedures and trial period. - Hearing aids ordered: Resound Omnia 60 miniRIC-R hearing aids (graphite, Size 3xMRIE receivers, tulip domes, Wax traps, removal strings) were selected and ordered today. - Accessories ordered: TV Streamer PLAN: - will be scheduled for a 60-minute hearing aid fitting appointment. - Regular follow-up recommended to monitor for changes in hearing, or as medically indicated. - Recommended mineral oil 2-3 drops per ear, on alternate nights, one time per month, and cleaning ear canal with soap and water using only his finger to apply soap to the outer ear and canal. Rinse out in shower. - PATIENT IS IN AGREEMENT WITH THIS PLAN. /corrine/ FRANCIS CRUZ COMMUNICATIONS CONTROLLER Signed: 04/04/2023 10:29 FRANCIS CRUZ [facility]
--- OUTSIDE RECORDS SUMMARY | 2023-09-02 16:42 | XMS_ITS | Encounter Summary ---
Author Name [facility] [place] [facility] [place] [facility] [place] Address [address] [place] [address] Care Team Providers Care Soa Integration Developer Name Role Phone ISACC FIGUEROA Primary Care [...] Edwards's Name Patient's Relationship to Policy Edwards BCBS [facility] (WNR) MEDICARE ADVANTAGE [facility] (WNR) Mar 06, 2018 [id number] [phone] Arabella BRADFORD PATIENT MEDICARE (WNR) MEDICARE (M) PART A Oct 05, 2007 PART A [id number] [phone] Arabella [place]ORD PATIENT MEDICARE (WNR) MEDICARE (M) PART B Oct 05, 2007 PART B [id number] [phone] Arabella [place]ORD PATIENT Selected Encounter This section includes the information on record at [place] for the Encounter. Date/Time Encounter Type Encounter Description Reason Provider Source Aug 07, 2023 03:00 PM SELF CARE MNGMENT TRAINING PHYSICAL THERAPY ICD-10-CM M25.511 Pain in right shoulder CHRIS SUAZO IHE Encounter Template Text not used by [facility] Assessments - Encounter Diagnoses This section includes the primary and secondary diagnoses documented for the Encounter. Date/Time Primary/Secondary Diagnosis Diagnosis Name Provider Source Aug 08, 2023 08:16 AM PRIMARY Pain in right shoulder CHRIS SUAZO [facility] Plan of Treatment: Future Appointments (+ 6 months) and Future Tests (+/- 45 days) The Plan of Treatment section includes future care activities for the patient [facility] [place] [facility] This section includes future appointments and future orders which are active, pending or scheduled. Future Appointments This section includes appointments that were scheduled to occur 6 months from the date of the Encounter, up to a maximum of 20 appointments. The data comes from all [facility]. Appointment Date/Time Appointment Type Appointme nt Facility Name Aug 18, 2023 09:30 AM AMBULATORY - REHAB MEDICIN E [facility] Aug 21, 2023 10:00 AM AMBULATORY - NONE [facility] Aug 21, 2023 10:30 AM AMBULATORY - SURGERY [facility] Aug 24, 2023 10:30 AM [facility] Sep 19, 2023 09:30 AM AMBULATORY - REHAB MEDICIN E [facility] Oct 23, 2023 10:30 AM AMBULATORY - SURGERY [facility] Oct 31, 2023 10:45 AM AMBULATORY - SURGERY [facility] Active, Pending, and Scheduled Orders This section includes a listing of several types of active, pending, and scheduled orders, including clinic medications orders, diagnostic test orders, procedure orders and consult orders; where the start date of the order is 45 days before the date of the Encounter or 45 days after the date of theEncounter. The data comes from all [facility]. Test Date/Time Test Type Test Details Facility Name Aug 24, 2023 11:07 AM Pharmacy - Clinic Medication Order [facility] Social History: Smoking Status (Most current) and Tobacco Use (All prior to encounter date) This section includes the most current, and the historical, smoking and tobacco- related health factors from the [place] facility where the Encounter took place. Current Smoking Status This section includes the most current smoking, or tobacco-related health factor, from the [place] facility where the Encounter took place. Date/Time Current Smoking Status Comment Leo leblanc July 21, 2022 10:00 AM VA-TOBACCO NEVER USED [facility] Tobacco Use History This section includes a history of the smoking, or tobacco-related health factors, that were collected on or before the date of the Encounter. The data comes from the [place] facility where the Encounter took place. Date/Time Smoking Status/Tobacco Use Comment F acility Aug 05, 2021 11:30 AM VA-TOBACCO NEVER USED [facility] Dec 25, 2018 09:57 AM VA-TOBACCO FORMER USER [facility] Dec 25, 2018 09:57 AM [place]-TO[place]ACCO QUIT 15 YRS OR MORE [facility] Dec 14, 2017 09:11 AM VA-TOBACCO NEVER USED [facility] Dec 22, 2016 10:22 AM FORMER TOBACCO USER 7Y OR GREATE R [facility] Jan 20, 2016 10:51 AM LIFETIME NON-TOBACCO USER [facility] Jan 08, 2015 10:35 AM FORMER TOBACCO USER 7Y OR GREATE R [facility] Jan 01, 2014 04:02 PM FORMER TOBACCO USER 7Y OR GREATE R [facility] Apr 01, 2010 10:12 AM FORMER TOBACCO USER 7Y OR GREATE R [facility] Advance Directives: All historical and current Section Date Range: From patient's date of to the date document was created. This section includes ALL of a patient's completed or amended [place] Advance and Rescinded Directives. The entries below indicate that a directive exists for the patient, but an actual copy is not included with this document. The data comes from all [facility]. Date Advance Directives Provider Source Jan 02, 2014 ADVANCE DIRECTIVE [facility] Jan 02, 2014 ADVANCE DIRECTIVE DISCUSSION KATARZYNA LIN[facility]N [facility] Radiology Reports: +/- 30 days of the encounter Radiology Reports For cases when an order for radiology services may have been completed prior to the date of the Encounter, the report list includes the Radiology Reports that were completed up to 30 days before dateof the Encounter. For cases when an order for radiology services may have been completed after the date of the Encounter, the report list also includes the Radiology Reports that were completed up to30 days after date of the Encounter. The data comes from all [place] treatment facilities. Date/Time Radiology Report Provider Source Aug 21, 2023 09:26 AM SHOULDER RIGHT 4V: DLIAN BRADFORD [id number] -[id number] M Exm Date: AUG 21, 2023@09:26 Req Phys: IGOR LEES Pat Loc: [facility] ORTHO E-CONSULT (Req'g Loc Img Loc: MAIN X-RAY Service: [place] [address] (Case [id number] COMPLETE) SHOULDER RIGHT 4V (RAD Detailed) CPT:18127 Proc Modifiers : RIGHT Reason for Study: right shoulder pain Clinical History: [place] IS NOT under investigation for COVID-19 or is COVID-19 negative right shoulder pain Responsible provider name and phone number to notify for critical findings if other than user placing the order and pager listed below: User placing orders pager: LAST CREATININE____ Report Status: Verified Date Reported: AUG 21, 2023 Date Verified: AUG 21, 2023 Insurance Verification Clerk E-Sig:/ES/MARLA GILLETTE DO Report: EXAMINATION: SHOULDER RIGHT 4V 08/21/2023 9:26 AM INDICATION: right shoulder pain COMPARISON: MRI 08/03/2023 Impression: No acute fracture, dislocation or AC separation. Mild to moderate AC joint degenerative change with spurring. Humeral head is not overtly high riding. Mild bony ridging in the glenohumeral joint. Sequelae of median sternotomy. Primary Interpreting Staff: MARLA GILLETTE DO, RADIOLOGIST (Insurance Verification Clerk) /DDS MARLA GILLETTE [facility] August 03, 2023 08:17 AM [facility] MRI UPPER E XTREMITY: DILAN BRADFORD [id number] -[id number] M Exm Date: AUGUST 03, 2023@08:17 Req Phys: ISACC FIGUEROA Pat Loc: [facility] XRAY GENERAL AM (Req'g Loc Img Loc: OUTSOURCE MRI Service: Unknown (Case [id number] COMPLETE) NON [place] MRI UPPER EXTREMITY (MRI Detailed) CPT:90775 Contrast Media : Gadolinium Reason for Study: outside study Clinical History: outside study Report Status: Electronically Filed Date Reported: AUG 18, 2023 Report: This is an outside Imaging study and/or report imported for continuity of patient care. This Imaging study and/or report was not reviewed or verified by a [place] Radiologist. Impression: This is an outside Imaging study and/or report imported for continuity of patient care. This Imaging study and/or report was not reviewed or verified by a [place] Radiologist. Primary Diagnostic Code: VERIFIED BY: / *ELECTRONICALLY FILED* [facility] Encounter Notes: All associated encounter notes This section contains the clinical notes associated to the Encounter. Date/Time Encounter Note(s) Provider Source Aug 08, 2023 08:17 AM ADDENDUM: LOCAL TITLE: Addendum STANDARD TITLE: ADDENDUM DATE OF NOTE: AUG 08, 2023@08:17:04 ENTRY DATE: AUG 08, 2023@08:17:04 AUTHOR: RISHI SUAZO EXP COSIGNER: URGENCY: STATUS: COMPLETED Will co-sign PCP as recently dx with full thickness rotator cuff tears. Veterean seen by outside orthopedic MD and received toradol (?) injection today but reports desire to be seen by orthopedic MD here at [place] for second opinion on possible surgical intervention for acute injury. /corrine/ RISHI SUAZO MS PT Physical Therapist Signed: 08/08/2023 08:19 Receipt Acknowledged By: 08/08/2023 10:52 /es/ ISACC FIGUEROA M.D. MEDICAL STAFF --- Original Document --- 08/07/23 PT-EVALUATION NOTE: PT tx:30min eval, 15min ther ex, 10min self care edu PT dx:Right shoulder pain, RCT Evaluation Date: Aug # of VISITS: 1 # of CX/NS: 0 SUBJECTIVE: reports fall 6 weeks ago while cleaning out a fish pond. Reports pain in right shoulder with bruising, w/u at [facility] and diagnosed with complete full thickness tear of the supraspinatus mm tendon,full thickness tear of the subscapularis mm tendon and mild tendinopathy of the ifraspinatus and long head of the biceps thendon. Tx with Toradol(?) injection earlier today without sig benefit thus far. Relevant PMH/personal factors impacting rehab: Active problems - Computerized Problem List is the source for the followin. Mixed hyperlipidemia (SNOMED CT 150021242) 2. Polyp of colon (SNOMED CT 60528776) 3. Benign paroxysmal positional vertigo 4. Glaucoma 5. Esophageal dysphagia 6. 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 Pain:RIGHT Location/Description: williams/lateral GHJ Intensity:2/10 at rest 8/10 with attempting to sleep 7/10 with raising arm to >90deg flexion Relieving Factors: rest, heat, cold Previous intervention: GHJ injection 08/08/23 Social History/Health Habits: Active pruitt no use of AD Red Flags: No personal history of cancer. Denies any UE or LE progressive weakness, unexplained weight loss, loss of bowel/bladder control, pain with rest, fevers, chills, infections. Patient's Goal: RELEVANT IMAGING: MRI 08/03/23 of Right shoulder summarized above OBJECTIVE: OBSERVATION/POSTURE: moderate FHOS, inc t-spine kyphosis, BL scapular protraction CERVICAL SCREEN: moderatedly limited AROM into BL SB and rotation, no pain at endrange, no radiating sx SHOULDER ROM: Right left Flexion(180): 80 165 Extension(45): 45 45 Abduction(180): 40 465 Ext Rotation(90):90 90 Int Rotation(70): NT SHOULDER STRENGTH/MMT:(__/5) RIGHT Flexion: 4+ Extension: 5 Abduction: 3- External Rotation:4+ Internal Rotation: 5 NEUROMUSCULAR/SCAPULAR CONTROL: limited AROM of scapula with inc mm tension in upper trap mm PALPATION: TTP right gr tub and subacromial space JOINT PLAY:NT d/t pain PT INTERVENTIONS: risks/benefits reviewed and verbal consent obtained for interventions Ther ex: - education on HEP (sets, reps, frequency and appropriate response/progression for exercise) Access Code: [email or web address] URL: [email or web address] Date: 08/08/2023 Exercises - Seated Scapular Retraction - 1 x daily - 7 x weekly - 3 sets - 10 reps - Shoulder Flexion Wall Slide with Towel - 1 x daily - 7 x weekly - 3 sets - 10 reps - Standing Isometric Shoulder Abduction with Doorway - Arm Bent - 1 x daily - 7 x weekly - 3 sets - 3 reps - 5sec hold sub max - Seated Upper Trapezius Stretch - 1 x daily - 7 x weekly - 2 sets - 3 reps - 30sec hold Self Care: - education on self-management strategies and activity modifications including sleeping positions, frequent position changes, benefits of aerobic/graded activity for management of pain conditions Response to Treatment: correct return demo of exercises without c/o inc pain, written handout provided GOALS: 1. Pt will be I in HEP for self-management of acute right shoulder pain in order to be able to sleep undisturbed in 6-8 weeks. 2. Pt to improve right shoulder AROM to >90deg in order to improve ability to reach overhead. 8 weeks ASSESSMENT: [place] with acute injury to right shoulder post fall 6 weeks ago with dx of full thickness tears of supraspinatus and subscapularis mm tendons leading to sig impairment in overhead activity and disturbed sleep. Veterean seen by outside orthopedic MD and received toradol (?) injection today but reports desire to be seen by orthopedic MD here at [place] for second opinion on possible surgical intervention. REHAB POTENTIAL: fair d/t acute nature of injury CLINICAL PRESENTATION: evolving, min complex PLAN: Pt to be seen 1x/wk x4-6 visits - Next Session: progress AAROM as able, scapular stab ex -Present note will serve as d/c note if vet does not present for follow-up within 8 wks Patient Education on Treatment Plan: PT role, POC, rehab expectations. Patient indicated readiness to learn, verbalizes understanding, agreement and satisfaction with the treatment plan. Denies further questions. /corrine/ RISHI SUAZO MS PT Physical Therapist Signed: 08/08/2023 08:16 RISHI SUAZO [facility] Aug 07, 2023 04:10 PM PHYSICAL THERAPY I NITIAL EVALUATION NOTE: LOCAL TITLE: PT-EVALUATION NOTE STANDARD TITLE: PHYSICAL THERAPY INITIAL EVALUATION NOTE DATE OF NOTE: AUG 07, 2023@16:10 ENTRY DATE: AUG 07, 2023@16:10:57 AUTHOR: RISHI SUAZO EXP COSIGNER: URGENCY: STATUS: COMPLETED PT-EVALUATION NOTE Has ADDENDA PT tx:30min eval, 15min ther ex, 10min self care edu PT dx:Right shoulder pain, RCT Evaluation Date: Aug # of VISITS: 1 # of CX/NS: 0 SUBJECTIVE: reports fall 6 weeks ago while cleaning out a fish pond. Reports pain in right shoulder with bruising, w/u at [facility] and diagnosed with complete full thickness tear of the supraspinatus mm tendon,full thickness tear of the subscapularis mm tendon and mild tendinopathy of the ifraspinatus and long head of the biceps thendon. Tx with Toradol(?) injection earlier today without sig benefit thus far. Relevant PMH/personal factors impacting rehab: Active problems - Computerized Problem List is the source for the followin. Mixed hyperlipidemia (SNOMED CT 137821174) 2. Polyp of colon (SNOMED CT 04145050) 3. Benign paroxysmal positional vertigo 4. Glaucoma 5. Esophageal dysphagia 6. 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 Pain:RIGHT Location/Description: williams/lateral GHJ Intensity:2/10 at rest 8/10 with attempting to sleep 7/10 with raising arm to >90deg flexion Relieving Factors: rest, heat, cold Previous intervention: GHJ injection 08/08/23 Social History/Health Habits: Active pruitt no use of AD Red Flags: No personal history of cancer. Denies any UE or LE progressive weakness, unexplained weight loss, loss of bowel/bladder control, pain with rest, fevers, chills, infections. Patient's Goal: RELEVANT IMAGING: MRI 08/03/23 of Right shoulder summarized above OBJECTIVE: OBSERVATION/POSTURE: moderate FHOS, inc t-spine kyphosis, BL scapular protraction CERVICAL SCREEN: moderatedly limited AROM into BL SB and rotation, no pain at endrange, no radiating sx SHOULDER ROM: Right left Flexion(180): 80 165 Extension(45): 45 45 Abduction(180): 40 465 Ext Rotation(90):90 90 Int Rotation(70): NT SHOULDER STRENGTH/MMT:(__/5) RIGHT Flexion: 4+ Extension: 5 Abduction: 3- External Rotation:4+ Internal Rotation: 5 NEUROMUSCULAR/SCAPULAR CONTROL: limited AROM of scapula with inc mm tension in upper trap mm PALPATION: TTP right gr tub and subacromial space JOINT PLAY:NT d/t pain PT INTERVENTIONS: risks/benefits reviewed and verbal consent obtained for interventions Ther ex: - education on HEP (sets, reps, frequency and appropriate response/progression for exercise) Access Code: [email or web address] URL: [email or web address] / Date: 08/08/2023 Exercises - Seated Scapular Retraction - 1 x daily - 7 x weekly - 3 sets - 10 reps - Shoulder Flexion Wall Slide with Towel - 1 x daily - 7 x weekly - 3 sets - 10 reps - Standing Isometric Shoulder Abduction with Doorway - Arm Bent - 1 x daily - 7 x weekly - 3 sets - 3 reps - 5sec hold sub max - Seated Upper Trapezius Stretch - 1 x daily - 7 x weekly - 2 sets - 3 reps - 30sec hold Self Care: - education on self-management strategies and activity modifications including sleeping positions, frequent position changes, benefits of aerobic/graded activity for management of pain conditions Response to Treatment: correct return demo of exercises without c/o inc pain, written handout provided GOALS: 1. Pt will be I in HEP for self-management of acute right shoulder pain in order to be able to sleep undisturbed in 6-8 weeks. 2. Pt to improve right shoulder AROM to >90deg in order to improve ability to reach overhead. 8 weeks ASSESSMENT: [place] with acute injury to right shoulder post fall 6 weeks ago with dx of full thickness tears of supraspinatus and subscapularis mm tendons leading to sig impairment in overhead activity and disturbed sleep. Veterean seen by outside orthopedic MD and received toradol (?) injection today but reports desire to be seen by orthopedic MD here at [place] for second opinion on possible surgical intervention. REHAB POTENTIAL: fair d/t acute nature of injury CLINICAL PRESENTATION: evolving, min complex PLAN: Pt to be seen 1x/wk x4-6 visits - Next Session: progress AAROM as able, scapular stab ex -Present note will serve as d/c note if vet does not present for follow-up within 8 wks Patient Education on Treatment Plan: PT role, POC, rehab expectations. Patient indicated readiness to learn, verbalizes understanding, agreement and satisfaction with the treatment plan. Denies further questions. /aneta SUAZO MS PT Physical Therapist Signed: 08/08/2023 08:16 08/08/2023 ADDENDUM STATUS: COMPLETED Will co-sign PCP as recently dx with full thickness rotator cuff tears. Veterean seen by outside orthopedic MD and received toradol (?) injection today but reports desire to be seen by orthopedic MD here at [place] for second opinion on possible surgical intervention for acute injury. /aneta SUAZO MS PT Physical Therapist Signed: 08/08/2023 08:19 Receipt Acknowledged By: * AWAITING SIGNATURE * ISACC FIGUEROA [facility]
--- OUTSIDE RECORDS SUMMARY | 2023-09-02 16:42 | XMS_ITS | Encounter Summary ---
Author Name [facility] [place] Address [address] [place] [address] Care Team Providers Care Head Of History Name Role Phone ISACC FUENTES Primary Care Provider Unavailab le Insurance Providers: [...] Name Patient's Relationship to Policy Edwards BCBS [facility] (WNR) MEDICARE ADVANTAGE [facility] (WNR) Mar 06, 2018 [id number] [phone] Arabella BRADFORD PATIENT MEDICARE (WNR) MEDICARE (M) PART A Oct 05, 2007 PART A [id number] [phone] Arabella BRADFORD PATIENT MEDICARE (WNR) MEDICARE (M) PART B Oct 05, 2007 PART B [id number] [phone] Arabella BRADFORD PATIENT Selected Encounter This section includes the information on record at [place] for the Encounter. Date/Time Encounter Type Encounter Description Reason Provider Source Aug 08, 2023 10:15 AM Outpatient Encounter PRIMARY CARE/MEDICINE BENY MASCORRO Encounter Template Text not used by [place] Plan of Treatment: Future Appointments (+ 6 months) and Future Tests (+/- 45 days) The Plan of Treatment section includes future care activities for the patient from [facility] [place] [facility] This section includes future appointments and future orders which are active, pending or scheduled. Future Appointments This section includes appointments that were scheduled to occur 6 months from the date of the Encounter, up to a maximum of 20 appointments. The data comes from all [facility]. Appointment Date/Time Appointment Type Appointme nt Facility Name Aug 18, 2023 09:30 AM AMBULATORY - REHAB MEDICIN E [facility] Aug 21, 2023 10:00 AM AMBULATORY - NONE [place] [facility] Aug 21, 2023 10:30 AM AMBULATORY - SURGERY [facility] Aug 24, 2023 10:30 AM AMBULATORY - MEDICINE [facility] Sep 19, 2023 09:30 AM AMBULATORY - REHAB MEDICIN E [facility] Oct 23, 2023 10:30 AM AMBULATORY - SURGERY [facility] Oct 31, 2023 10:45 AM AMBULATORY - SURGERY [facility] Active, Pending, [...] of theEncounter. The data comes from all [facility]. Test Date/Time Test Type Test Details Facility Name Aug 24, 2023 11:07 AM Pharmacy - Clinic Medication Order [facility] Social History: Smoking Status (Most current) and Tobacco Use (All prior to encounter date) This section includes the most current, and the historical, smoking and tobacco- related health factors from the [place] facility where the Encounter took place. Current Smoking Status This section includes the most current smoking, or tobacco-related health factor, from the [place] facility where the Encounter took place. Date/Time Current Smoking Status Comment Facil ity July 21, 2022 10:00 AM [place]-TOBACCO NEVER USED [facility] Tobacco Use History This section includes a history of the smoking, or tobacco-related health factors, that were collected on or before the date of the Encounter. The data comes from the [place] facility where the Encounter took place. Date/Time Smoking Status/Tobacco Use Comment F acility Aug 05, 2021 11:30 AM [place]-TOBAC[place] NEVER USED [facility] Dec 25, 2018 09:57 AM [place]-TOBACCO FORMER USER [facility] Dec 25, 2018 09:57 AM [place]TO[place]AC[place] QUIT 15 YRS OR MORE [facility] Dec 14, 2017 09:11 AM VA-TOBACCO NEVER USED [facility] Dec 22, 2016 10:22 AM FORMER TOBACCO USER 7Y OR GREATE R [facility] Jan 20, 2016 10:51 AM LIFETIME NON-TOBACCO USER [facility] Jan 08, 2015 10:35 AM FORMER TOBACCO USER 7Y OR GREATE R [facility] Jan 01, 2014 04:02 PM FORMER TOBACCO USER 7Y OR GREATE R [facility] Apr 01, 2010 10:12 AM FORMER TOBACCO USER 7Y OR GREATE R [facility] Advance Directives: All historical and current Section Date Range: From patient's date of to the date document was created. This section includes ALL of a patient's completed or amended [place] Advance and Rescinded Directives. The entries below indicate that a directive exists for the patient, but an actual copy is not included with this document. The data comes from all [place] facilities. Date Advance Directives Provider Source Jan 02, 2014 ADVANCE DIRECTIVE KATARZYNA [facility] Jan 02, 2014 ADVANCE DIRECTIVE DISCUSSION KATARZYNA [facility] Radiology Reports: +/- 30 days of the [...] the Encounter. The data comes from all [place] treatment facilities. Date/Time Radiology Report Provider Source Aug 21, 2023 09:26 AM SHOULDER RIGHT 4V: DILAN BRADFORD [id number] -[id number] M Ex Date: AUG 21, 2023@09:26 Req Phys: IGOR LEES Loc: [facility] OR[facility]O E-CONSULT (Req'g Loc Img Loc: MAIN X-RAY Service: [place] [address] (Case [id number] COMPLETE) SHOULDER RIGHT 4V (RAD Detailed) CPT:35596 Proc Modifiers : RIGHT Reason for Study: right shoulder pain Clinical History: IS NOT under investigation for COVID-19 or is COVID-19 negative right shoulder pain Responsible provider name and phone number to notify for critical findings if other than user placing the order and pager listed below: User placing orders pager: LAST CREATININE____ Report Status: Verified Date Reported: AUG 21, 2023 Date Verified: AUG 21, 2023 Powder Blender And Pourer E-Sig:/ES/MARLA GILLETTE DO Report: EXAMINATION: SHOULDER RIGHT 4V 08/21/2023 9:26 AM INDICATION: right shoulder pain COMPARISON: MRI 08/03/2023 Impression: No acute fracture, dislocation or AC separation. Mild to moderate AC joint degenerative change with spurring. Humeral head is not overtly high riding. Mild bony ridging in the glenohumeral joint. Sequelae of median sternotomy. Primary Interpreting Staff: MARLA GILLETTE DO, RADIOLOGIST (Powder Blender And Pourer) /DDS MARLA GILLETTE [facility] August 03, 2023 08:17 AM [facility] MRI UPPER E XTREMITY: DILAN BRADFORD [id number] -[id number] M Exm Date: AUGUST 03, 2023@08:17 Req Phys: ISACC FUENTES Pat Loc: [facility] XRAY GENERAL AM (Req'g Loc Img Loc: OUTSOURCE MRI Service: Unknown (Case [id number] COMPLETE) NON [place] MRI UPPER EXTREMITY (MRI Detailed) CPT:96845 Contrast Media : Gadolinium Reason for Study: outside study Clinical History: outside study Report Status: Electronically Filed Date Reported: AUG 18, 2023 Report: This is an outside Imaging study and/or report imported for continuity of patient care. This Imaging study and/or report was not reviewed or verified by a [place] Radiologist. Impression: This is an outside Imaging study and/or report imported for continuity of patient care. This Imaging study and/or report was not reviewed or verified by a [place] Radiologist. Primary Diagnostic Code: VERIFIED BY: / *ELECTRONICALLY FILED* [facility] Encounter Notes: All associated encounter notes This section contains the clinical notes associated to the Encounter. Date/Time Encounter Note(s) Provider Source Aug 08, 2023 10:15 AM PRIMARY CARE SECUR E MESSAGING: LOCAL TITLE: PRIMARY CARE SECURE MESSAGING STANDARD TITLE: PRIMARY CARE SECURE MESSAGING DATE OF NOTE: AUG 08, 2023@10:15 ENTRY DATE: AUG 08, 2023@10:15:58 AUTHOR: BENY MASCORRO EXP COSIGNER: URGENCY: STATUS: COMPLETED ------Original Message ----- Sent: 08/07/2023 07:35 PM ET From: DILAN BRADFORD To: [facility] Primary CareGina ([place]igo) Subject: Appointment:ortho appointment Dr. Fuentes I just finished up with physical therapy who is telling me to get with you and line up an appointment with an ortho doctor. I'm also wondering if our scheduled physical could be moved up to help coordinate things. I had a X-ray and MRI done at [facility] and they have confirmed two completely torn thru tendons in the shoulder. Really could use some further help on this. Also have another appointment lined up with physical therapy next week. This happened about a month and a half ago. Please let me know what next step would be with [place]..Thanks Kamaljit Carrizales ------Original Message ----- Sent: 08/08/2023 11:15 AM ET From: BENY MASCORRO To: DILAN BRADFORD Subject: Appointment:ortho appointment Soy Mari, I will inquire with Dr. Fuentes. Looks like Daina the PT also reached out to him. Thanks! Beny Mascorro Primary Care RN/BSN /corrine/ BENY MASCORRO RN RN, BSN Signed: 08/08/2023 10:15 BENY MASCORRO [facility]
--- OUTSIDE RECORDS SUMMARY | 2023-09-02 16:42 | XMS_ITS | Encounter Summary ---
Author Name [facility] [place] [facility] [place] Address [address] [place] [address] Care Team Providers Care Admissions Nurse Name Role Phone ISACC FIGUEROA Primary Care [...] Name Patient's Relationship to Policy Edwards BCBS [facility] (WNR) MEDICARE ADVANTAGE [facility] (WNR) Mar 06, 2018 [id number] [phone] Arabella BRADFORD PATIENT MEDICARE (WNR) MEDICARE (M) PART A Oct 05, 2007 PART A [id number] [phone] Arabella BRADFORD PATIENT MEDICARE (WNR) MEDICARE (M) PART B Oct 05, 2007 PART B [id number] Arabella BRADFORD PATIENT Selected Encounter This section includes the information on record at [place] for the Encounter. Date/Time Encounter Type Encounter Description Reason Provider Source May 02, 2023 01:30 PM CONFORMITY EVALUATION AUDIOLOGY ICD-10-CM H90.3 Sensorineural hearing loss, bilateral [place],BR ITTA K IHE Encounter Template Text not used by [facility] Assessments - Encounter Diagnoses This section includes the primary and secondary diagnoses documented for the Encounter. Date/Time Primary/Secondary Diagnosis Diagnosis Name Provider Source May 02, 2023 02:02 PM PRIMARY Sensorineural hearing loss, bilateral MONICA CRUZ [facility] May 02, 2023 02:02 PM SECONDARY Encounter for fitting and adjustment of hearing aid MONICA CRUZ [facility] Plan of Treatment: Future Appointments (+ 6 months) and Future Tests (+/- 45 days) The Plan of Treatment section includes future care activities for the patient [facility] [place] [facility]. This section includes future appointments and future orders which are active, pending or scheduled. Future Appointments This section includes appointments that were scheduled to occur 6 months from the date of the Encounter, up to a maximum of 20 appointments. The data comes from all [facility] facilities. Appointment Date/Time Appointment Type Appointme nt Facility Name Aug 07, 2023 03:00 PM AMBULATORY - RE[facility]AB MEDICIN [facility] Aug 18, 2023 09:30 AM AMBULATORY - REHAB MEDICIN E [facility] Aug 21, 2023 10:00 AM [facility] Aug 21, 2023 10:30 AM AMBULATORY - SURGERY [facility] Aug 24, 2023 10:30 AM AMBULATORY - MEDICINE [facility] Sep 19, 2023 09:30 AM AMBULATORY - REHAB MEDICIN E [facility] Oct 23, 2023 10:30 AM AMBULATORY - SURGERY [facility] Oct 31, 2023 10:45 AM AMBULATORY - SURGERY [facility] Social History: Smoking Status (Most current) and Tobacco Use (All prior to encounter date) This section includes the most current, and the historical, smoking and tobacco- related health factors from the [place] facility where the Encounter took place. Current Smoking Status This section includes the most current smoking, or tobacco-related health factor, from the [place] facility where the Encounter took place. Date/Time Current Smoking Status Comment Leo ity July 21, 2022 10:00 AM [place]-TOBACCO NEVER USED [facility] Tobacco Use History This section includes a history of the smoking, or tobacco-related health factors, that were collected on or before the date of the Encounter. The data comes from the [place] facility where the Encounter took place. Date/Time Smoking Status/Tobacco Use Comment F acility Aug 05, 2021 11:30 AM VA-TOBACCO NEVER USED [facility] Dec 25, 2018 09:57 AM VA-TOBACCO FORMER USER [facility] Dec 25, 2018 09:57 AM [place]-TOBACCO QUIT 15 YRS OR MORE [facility] Dec 14, 2017 09:11 AM VA-TOBACCO NEVER USED [facility] Dec 22, 2016 10:22 AM FORMER TOBACCO USER 7Y OR GREATE R [facility] Jan 20, 2016 10:51 AM LIFETIME NON-TOBACCO USER [facility] Jan 08, 2015 10:35 AM FORMER TOBACCO USER 7Y OR GREATE R [facility] Jan 01, 2014 04:02 PM FORMER TOBACCO USER 7Y OR GREATE R [facility] Apr 01, 2010 10:12 AM FORMER TOBACCO USER 7Y OR GREATE R [facility] Advance Directives: All historical and current Section Date Range: From patient's date of to the date document was created. This section includes ALL of a patient's completed or amended [place] Advance and Rescinded Directives. The entries below indicate that a directive exists for the patient, but an actual copy is not included with this document. The data comes from all [place] facilities. Date Advance Directives Provider Source Jan 02, 2014 ADVANCE DIRECTIVE SALAZARKATARZYNASAW GARCÍA [facility] Jan 02, 2014 ADVANCE DIRECTIVE DISCUSSION SALAZARKATARZYNA [facility] Encounter Notes: All associated encounter notes This section contains the clinical notes associated to the Encounter. Date/Time Encounter Note(s) Provider Source May 02, 2023 07:16 AM AUDIOLOGY NOTE: LOCAL TITLE: AUDIOLOGY CLINIC NOTE STANDARD TITLE: AUDIOLOGY NOTE DATE OF NOTE: MAY 02, 2023@07:16 ENTRY DATE: MAY 02, 2023@07:16:58 AUTHOR: FRANCIS CRUZ COSIGNER: URGENCY: STATUS: COMPLETED DIAGNOSIS: Encounter for Fitting and Adjustment of Hearing Aid Sensorineural loss, bilateral REASON FOR VISIT: Therapeutic - hearing aid fitting, conformity evaluation (real-ear measures), orientation and counseling LOCATION OF VISIT (ROOM NUMBER): [id number] was seen for Hearing Aid [place] Appointment HISTORY: is an experienced hearing aid wearer. Recommended keep his old hearing aids as a backup/spare as needed. HEARING AIDS (Right/Left) fit: 05/02/2023 Make: Resound Model: Omnia 60 miniRIC-R Serial Numbers R/L: [id number] / [id number] Salt Grinder/Slim Tube Size: [id number] Dome/Earmold: tulip ACCESSORIES: TV Streamer, iPhone OTOSCOPY: Both Ears: Free of excessive cerumen. Normal anatomy bilaterally ACTION: Hearing aid(s) are a good physical fit. Feedback test was completed and feedback game breeding farm manager was activated. Hearing aid(s) were programmed to prescriptive targets, which were derived from the Veterans hearing loss. CONFORMITY EVAUATION (VERIFICATION OF HEARING AID FUNCTION): Real Ear Aided Response (REAR) was measured using the Correlix 2 system using NAL-NL2 targets. Most targets were met. Loudness intolerance was measured using a 85 dB MPO tone sweep and the patient was able to tolerate the output of the hearing device(s). Veterans subjective impressions were considered while adjusting the hearing aid(s). Weidman reported good sound quality and equal balance between ears after adjustments were made. Weidman reported a comfortable fit. demonstrated understanding of the new aid(s) and was able to insert the hearing aid(s) appropriately, as well as manipulate the volume control and charging unit. Indicator tones were demonstrated for . Volume control enabled- Synchronized Program button enabled Accessories were paired to the hearing aid(s). Weidman was educated and counseled on use and features of the device(s) as well as how to connect them. The device(s) were demonstrated in the office to ensure both device functionality and understanding. Veterans hearing aid(s) were paired to the patient's cell phone and mj. A practice phone call was completed to verify functionality. Education and counseling was completed regarding streaming capabilities. The server service assistant phone application was reviewed in detail (volume control, program changes, settings, etc.) and demonstrated in the office. was counseled (30 minutes) regarding: -Full-time hearing aid use and acclimating to amplification -Realistic expectations for hearing aid use -Appropriate communication strategies -How to charge the hearing aids -Location and operation of all controls -Proper care and maintenance -Protecting hearing in high noise levels -Warning about battery ingestion -[facility] and Call Center contact information and services, including the trial period. Prognosis for success is good, given the Veterans response to the hearing aid(s). Hearing aid(s) were issued and supplies were mailed. was provided with a copy of [place] issuance form [id number]. PLAN: will return to clinic for service and wax check in 6 months or as needed. Patient is in agreement with this plan. /corrine/ FRANCIS CRUZ FIBERGLASS BOAT MAKER Signed: 05/02/2023 14:02 FRANCIS CRUZ [facility]
--- OUTSIDE RECORDS SUMMARY | 2023-09-02 16:42 | XMS_ITS | Encounter Summary ---
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 Date/Time Encounter Type Encounter Description Reason Provider Source Aug 18, 2023 09:30 AM PHYSICAL PERFORMANCE TEST PHYSICAL THERAPY ICD-10-CM M25.511 Pain in right shoulder CHRIS SUAZO [facility] Encounter Template Text not used by [facility] Assessments - Encounter Diagnoses This section includes the primary and secondary diagnoses documented for the Encounter. Date/Time Primary/Secondary Diagnosis Diagnosis Name Provider Source Aug 18, 2023 01:12 PM PRIMARY Pain in right shoulder CHRIS SUAZO [facility] Plan of Treatment: Future Appointments (+ 6 months) and Future Tests (+/- 45 days) The Plan of Treatment section includes future care activities for the [facility] [place] [facility] This section includes future appointments and future orders which are active, pending or scheduled. Future Appointments This section includes appointments that were scheduled to occur 6 months from the date of the Encounter, up to a maximum of 20 appointments. The data comes from all [facility]. Appointment Date/Time Appointment Type Appointme nt Facility Name Aug 21, 2023 10:00 AM AMBULATORY - NONE [facility] Aug 21, 2023 10:30 AM AMBULATORY - SURGERY [facility] Aug 24, 2023 10:30 AM AMBULATORY - MEDICINE [facility] Sep 19, 2023 09:30 AM AMBULATORY - REHAB MEDICIN E [facility] Oct 23, 2023 10:30 AM AMBULATORY - SURGERY [facility] Oct 31, 2023 10:45 AM AMBULATORY - SURGERY [facility] Active, Pending, and Scheduled Orders This section includes a listing of several types of active, pending, and scheduled orders, including clinic medications orders, diagnostic test orders, procedure orders and consult orders; where the start date of the order is 45 days before the date of the Encounter or 45 days after the date of theEncounter. The data comes from all [facility]. Test Date/Time Test Type Test Details Facility Name Aug 24, 2023 11:07 AM Pharmacy - Clinic Medication Order [facility] Social History: Smoking Status (Most current) and Tobacco Use (All prior to encounter date) This section includes the most current, and the historical, smoking and tobacco- related health factors from the [place] facility where the Encounter took place. Current Smoking Status This section includes the most current smoking, or tobacco-related health factor, from the [place] facility where the Encounter took place. Date/Time Current Smoking Status Comment Facil ity July 21, 2022 10:00 AM VA-TOBACCO NEVER USED [facility] Tobacco Use History This section includes a history of the smoking, or tobacco-related health factors, that were collected on or before the date of the Encounter. The data comes from the [place] facility where the Encounter took place. Date/Time Smoking Status/Tobacco Use Comment F acility Aug 05, 2021 11:30 AM VA-TOBACCO NEVER USED [facility] Dec 25, 2018 09:57 AM VA-TOBACCO FORMER USER [facility] Dec 25, 2018 09:57 AM [place]-TOBACCO QUIT 15 YRS OR MORE [facility] Dec 14, 2017 09:11 AM VA-TOBACCO NEVER USED [facility] Dec 22, 2016 10:22 AM FORMER TOBACCO USER 7Y OR GREATE R [facility] Jan 20, 2016 10:51 AM LIFETIME NON-TOBACCO USER [facility] Jan 08, 2015 10:35 AM FORMER TOBACCO USER 7Y OR GREATE R [facility] Jan 01, 2014 04:02 PM FORMER TOBACCO USER 7Y OR GREATE R [facility] Apr 01, 2010 10:12 AM FORMER TOBACCO USER 7Y OR GREATE R [facility] Advance Directives: All historical and current Section Date Range: From patient's date of to the date document was created. This section includes ALL of a patient's completed or amended [place] Advance and Rescinded Directives. The entries below indicate that a directive exists for the patient, but an actual copy is not included with this document. The data comes from all [facility]. Date Advance Directives Provider Source Jan 02, 2014 ADVANCE DIRECT[facility] Jan 02, 2014 ADVANCE DIRECTIVE DISCUSSION KATARZYNA [facility] Radiology Reports: +/- 30 days of [...] the Encounter. The data comes from all [place] treatment facilities. Date/Time Radiology Report Provider Source Aug 21, 2023 09:26 AM SHOULDER RIGHT 4V: DILAN BRADFORD [id number] -[id number] M Exm Date: AUG 21, 2023@09:26 Req Phys: IGOR LEES Loc: [facility] ORTHO E-CONSULT (Req'g Loc Img Loc: MAIN X-RAY Service: [place] [address] (Case [id number] COMPLETE) SHOULDER RIGHT 4V (RAD Detailed) CPT:33493 Proc Modifiers : RIGHT Reason for Study: [...] 21, 2023 Date Verified: AUG 21, 2023 Education Reviewer E-Sig:/ES/MARLA GILLETTE DO Report: EXAMINATION: SHOULDER RIGHT 4V 08/21/2023 9:26 AM INDICATION: right shoulder pain COMPARISON: MRI 08/03/2023 Impression: No acute fracture, dislocation or AC separation. Mild to moderate AC joint degenerative change with spurring. Humeral head is not overtly high riding. Mild bony ridging in the glenohumeral joint. Sequelae of median sternotomy. Primary Interpreting Staff: MARLA GILLETTE DO, RADIOLOGIST (Education Reviewer) /DDS MARLA GILLETTE [facility] August 03, 2023 08:17 AM NON [place] MRI UPPER E XTREMITY: DILAN BRADFORD [id number] -[id number] M Ex Date: AUGUST 03, 2023@08:17 Req Phys: ISACC FIGUEROA Pat Loc: [facility] XRAY GENERAL AM (Req'g Loc Img Loc: OUTSOURCE MRI Service: Unknown (Case [id number] COMPLETE) NON [place] MRI UPPER EXTREMITY (MRI Detailed) CPT:62383 Contrast Media : Gadolinium Reason for Study: outside study Clinical History: outside study Report Status: Electronically Filed Date Reported: AUG 18, 2023 Report: This is an outside Imaging study and/or report imported for continuity of patient care. This Imaging study and/or report was not reviewed or verified by a [place] Radiologist. Impression: This is an outside Imaging study and/or report imported for continuity of patient care. This Imaging study and/or report was not reviewed or verified by a [place] Radiologist. Primary Diagnostic Code: VERIFIED BY: / *ELECTRONICALLY FILED* [facility] Encounter Notes: All associated encounter notes This section contains the clinical notes associated to the Encounter. Date/Time Encounter Note(s) Provider Source Aug 18, 2023 07:25 AM PHYSICAL THERAPY N OTE: LOCAL TITLE: PT-PROGRESS NOTE STANDARD TITLE: PHYSICAL THERAPY NOTE DATE OF NOTE: AUG 18, 2023@07:25 ENTRY DATE: AUG 18, 2023@07:25:36 AUTHOR: RISHI SUAZO EXP COSIGNER: URGENCY: STATUS: COMPLETED PT tx:10min phys perf test, 25min ther ex PT dx:Right shoulder pain, RCT Evaluation Date: Aug # of VISITS: 2 # of CX/NS: 0 SUBJECTIVE: reports fall 6 weeks ago while cleaning out a fish pond. Reports pain in right shoulder with bruising, w/u at [facility] and diagnosed with complete full thickness tear of the supraspinatus mm tendon,full thickness tear of the subscapularis mm tendon and mild tendinopathy of the ifraspinatus and long head of the biceps thendon. Today, reports about 50% improvement in pain sx- states he is sleeping much bettern, no longer getting up 3-4x/night d/t pain. Chief Concern: Pt is an 82 year old who presents to PT for acute onset of right shoulder pain s/p fall 6 weeks ago with dx of RCT. Pain:RIGHT Location/Description: williams/lateral GHJ Intensity:2/10 at rest 7/10 with raising arm to >90deg flexion Relieving Factors: rest, heat, cold Previous intervention: GHJ injection 08/07/23 Social History/Health Habits: Active pruitt no use of AD Patient's Goal:be able to sleep and raise my arm farther RELEVANT IMAGING: MRI 08/03/23 of Right shoulder summarized above OBJECTIVE: OBSERVATION/POSTURE: moderate FHOS, inc t-spine kyphosis, BL scapular protraction CERVICAL SCREEN: moderatedly limited AROM into BL SB and rotation, no pain at endrange, no radiating sx SHOULDER AROM/PROM: 08/18/23 Right left Flexion(180): 75/90 165 Extension(45): 45 45 Abduction(180): 45/50 165 Ext Rotation(90):90 90 Int Rotation(70): L5 SHOULDER STRENGTH/MMT:(__/5) RIGHT (initial) Flexion: 4+ Extension: 5 Abduction: 3- External Rotation:4+ Internal Rotation: 5 NEUROMUSCULAR/SCAPULAR CONTROL: limited AROM of scapula with inc mm tension in upper trap mm PALPATION: TTP right gr tub and subacromial space PT INTERVENTIONS: risks/benefits reviewed and verbal consent obtained for interventions Ther ex: Reviewed and progressed Access Code: [email or web address] URL: [email or web address] m/ Date: 08/08/2023 Exercises - Seated Scapular Retraction [...] sets - 3 reps - 30sec hold ADDED -AAROM with cane: supine chest press and flexion standing IR standing abduction *cues to perform in front of mirror to avoid shoulder shrugs Response to Treatment: correct return demo of exercises without c/o inc pain, written handout provided GOALS: 1. Pt will be I in HEP for self-management of acute right shoulder pain in order to be able to sleep undisturbed in 6-8 weeks. Progressing 2. Pt to improve right shoulder AROM to >90deg in order to improve ability to reach overhead . 8 weeks Ongoing ASSESSMENT: with acute injury to right shoulder post fall 6 weeks ago with dx of full thickness tears of supraspinatus and subscapularis mm tendons leading to sig impairment in overhead activity and disturbed sleep. Today, veterean reports about 50% improvement in pain sx allowing for better sleep. Cont to present with sig loss of AFOM isela into abduction and flexion. Consult placed for Orthopedic eval here at [place], instructed to go to clinic to schedule. REHAB POTENTIAL: fair d/t acute nature of injury CLINICAL PRESENTATION: evolving, min complex PLAN: Pt to be seen 1x/wk x4-6 visits - Next Session: progress inc AAROM as able, scapular stab ex, give SPADI -Present note will serve as d/c note if vet does not present for follow-up within 8 wks Patient Education on Treatment Plan: PT role, POC, rehab expectations. Patient indicated readiness to learn, verbalizes understanding, agreement and satisfaction with the treatment /corrine/ RISHI SUAZO MS PT Physical Therapist Signed: 08/18/2023 13:12 RISHI SUAZO [facility]
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
--- OUTSIDE RECORDS SUMMARY | 2023-09-02 16:43 | XMS_ITS | Encounter Summary ---
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 Date/Time Encounter Type Encounter Description Reason Provider Source Aug 21, 2023 10:30 AM OFF/OP CONSLTJ NEW/EST HI 55 ORTHO/JOINT SURG ICD-10-CM M25.511 Pain in right shoulder PURVI MORSE IHE Encounter Template Text not used by [place] Assessments - Encounter Diagnoses This section includes the primary and secondary diagnoses documented for the Encounter. Date/Time Primary/Secondary Diagnosis Diagnosis Name Provider Source Aug 21, 2023 01:05 PM PRIMARY Pain in right shoulder PURVI MORSE [facility] Aug 21, 2023 01:05 PM SECONDARY Bicipital tendinitis, right shoulder PURVI MORSE [facility] Aug 21, 2023 01:05 PM SECONDARY Unsp injury of right shoulder and upper arm, init encntr PURVI MORSE [facility] Aug 21, 2023 01:05 PM SECONDARY Unsp rotatr-cuff tear/ruptr of right shoulder, not trauma PURVI MORSE [facility] Plan of Treatment: Future Appointments (+ 6 months) and Future Tests (+/- 45 days) The Plan of Treatment section includes future care activities for the patient from all [place] [facility] This section includes future appointments and future orders which are active, pending or scheduled. Future Appointments This section includes appointments that were scheduled to occur 6 months from the date of the Encounter, up to a maximum of 20 appointments. The data comes from all [facility]. Appointment Date/Time Appointment Type Appointme nt Facility Name Aug 24, 2023 10:30 AM [facility] Sep 19, 2023 09:30 AM AMBULATORY - REHAB MEDICIN E [facility] Oct 23, 2023 10:30 AM AMBULATORY - SURGERY [facility] Oct 31, 2023 10:45 AM AMBULATORY - SURGERY [facility] Active, Pending, and Scheduled Orders This section includes a listing of several types of active, pending, and scheduled orders, including clinic medications orders, diagnostic test orders, procedure orders and consult orders; where the start date of the order is 45 days before the date of the Encounter or 45 days after the date of theEncounter. The data comes from all [facility]. Test Date/Time Test Type Test Details Facility Name Aug 24, 2023 11:07 AM Pharmacy - Clinic Medication Order [facility] Social History: Smoking Status (Most current) and Tobacco Use (All prior to encounter date) This section includes the most current, and the historical, smoking and tobacco- related health factors from the [place] facility where the Encounter took place. Current Smoking Status This section includes the most current smoking, or tobacco-related health factor, from the [place] facility where the Encounter took place. Date/Time Current Smoking Status Comment Facil ity July 21, 2022 10:00 AM VA-TOBACCO NEVER USED [facility] Tobacco Use History This section includes a history of the smoking, or tobacco-related health factors, that were collected on or before the date of the Encounter. The data comes from the [place] facility where the Encounter took place. Date/Time Smoking Status/Tobacco Use Comment F acility Aug 05, 2021 11:30 AM VA-TOBACCO NEVER USED [facility] Dec 25, 2018 09:57 AM VA-TOBACCO FORMER USER [facility] Dec 25, 2018 09:57 AM [place]-TOBACCO QUIT 15 YRS OR MORE [facility] Dec 14, 2017 09:11 AM VA-TOBACCO NEVER USED [facility] Dec 22, 2016 10:22 AM FORMER TOBACCO USER 7Y OR GREATE R [facility] Jan 20, 2016 10:51 AM LIFETIME NON-TOBACCO USER [facility] Jan 08, 2015 10:35 AM FORMER TOBACCO USER 7Y OR GREATE R [facility] Jan 01, 2014 04:02 PM FORMER TOBACCO USER 7Y OR GREATE R [facility] Apr 01, 2010 10:12 AM FORMER TOBACCO USER 7Y OR GREATE R [facility] Advance Directives: All historical and current Section Date Range: From patient's date of to the date document was created. This section includes ALL of a patient's completed or amended [place] Advance and Rescinded Directives. The entries below indicate that a directive exists for the patient, but an actual copy is not included with this document. The data comes from all [facility]. Date Advance Directives Provider Source Jan 02, 2014 ADVANCE DIRECTIVE [facility]ATARZYNA [facility] Jan 02, 2014 ADVANCE DIRECTIVE DISCUSSION [facility]ARZYNA [facility] Radiology Reports: +/- 30 days of [...] the Encounter. The data comes from all [place] treatment facilities. Date/Time Radiology Report Provider Source Aug 21, 2023 09:26 AM SHOULDER RIGHT 4V: DILAN BRADFORD [id number] -[id number] M Exm Date: AUG 21, 2023@09:26 Req Phys: IGOR LEES Pat Loc: [facility] ORTHO E-CONSULT (Req'g Loc Img Loc: MAIN X-RAY Service: [place] [address] (Case [id number] COMPLETE) SHOULDER RIGHT 4V (RAD Detailed) CPT:67220 Proc Modifiers : RIGHT Reason for Study: right shoulder pain Clinical History: Morrice IS NOT under investigation for COVID-19 or is COVID-19 negative right shoulder pain Responsible provider name and phone number to notify for critical findings if other than user placing the order and pager listed below: User placing orders pager: LAST CREATININE____ Report Status: Verified Date Reported: AUG 21, 2023 Date Verified: AUG 21, 2023 Litigation Associate E-Sig:/ES/MARLA GILLETTE DO Report: EXAMINATION: SHOULDER RIGHT 4V 08/21/2023 9:26 AM INDICATION: right shoulder pain COMPARISON: MRI 08/03/2023 Impression: No acute fracture, dislocation or AC separation. Mild to moderate AC joint degenerative change with spurring. Humeral head is not overtly high riding. Mild bony ridging in the glenohumeral joint. Sequelae of median sternotomy. Primary Interpreting Staff: MARLA GILLETTE DO, RADIOLOGIST (Litigation Associate) /DDS MARLA GILLETTE [facility] August 03, 2023 08:17 AM NON [place] MRI UPPER E XTREMITY: DILAN BRADFORD [id number] -[id number] M Exm Date: AUGUST 03, 2023@08:17 Req Phys: ISACC FIGUEROA Pat Loc: [facility] XRAY GENERAL AM (Req'g Loc Img Loc: OUTSOURCE MRI Service: Unknown (Case [id number] COMPLETE) [facility] MRI UPPER EXTREMITY (MRI Detailed) CPT:72592 Contrast Media : Gadolinium Reason for Study: outside study Clinical History: outside study Report Status: Electronically Filed Date Reported: AUG 18, 2023 Report: This is an outside Imaging study and/or report imported for continuity of patient care. This Imaging study and/or report was not reviewed or verified by a [place] Radiologist. Impression: This is an outside Imaging study and/or report imported for continuity of patient care. This Imaging study and/or report was not reviewed or verified by a [place] Radiologist. Primary Diagnostic Code: VERIFIED BY: / *ELECTRONICALLY FILED* [facility] Encounter Notes: All associated encounter notes This section contains the clinical notes associated to the Encounter. Date/Time Encounter Note(s) Provider Source Aug 21, 2023 12:52 PM ORTHOPEDIC SURGERY CONSULT: LOCAL TITLE: ORTHOPEDIC CONSULT STANDARD TITLE: ORTHOPEDIC SURGERY CONSULT DATE OF NOTE: AUG 21, 2023@12:52 ENTRY DATE: AUG 21, 2023@12:53:03 AUTHOR: PURVI MORSE COSIGNER: URGENCY: STATUS: COMPLETED Orthopedic Surgery Clinic Note: Chief complaint: Right shoulder pain HPI: DILAN BRADFORD is a 82 year old right hand dominant MALE who presents for evaluation of his right shoulder pain. Patient sustained an injury approximately 2 months ago which he fell when attempting to clean his fish pond. He landed directly onto his right shoulder. He noted immediate onset of pain and limitations in his motion. He denies any prior history of shoulder pain. No prior surgery and no injections. He has been participating in physical therapy since his injury and feels that he has made some improvements. He continues with nighttime pain as well as worsened pain with attempted movement with the shoulder particularly attempted overhead motions. He still has fairly limited range of motion but is now able to reach the back of his head. He localizes pain over the anterior aspect of the shoulder as well as some pain laterally. He denies any paresthesias or numbness and has no radicular pain. He denies similar symptoms on the contralateral side. Given his ongoing symptoms patient obtained an MRI and referred to orthopedics for further evaluation. Patient is scheduled to go to [place] for a cruise next week. He is seen today with his significant other. Social History: Patient is retired. He keeps busy with yard work as he has a very large yard and property. Patient denies tobacco use has no known personal or family history of bleeding disorders, blood clots or problem with anesthesia. 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 Past Medical History: Active problems - Computerized Problem List is the source for the followin. Mixed hyperlipidemia (SNOMED CT 146363178) 2. Polyp of colon (SNOMED CT 61310779) 3. Benign paroxysmal positional vertigo 4. Glaucoma 5. Esophageal dysphagia 6. 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 PAST SURGICAL HISTORY: JUN 12, 2014 Proc: KPE IOL right eye MAY 20, 2014 Proc: KPE IOL left eye Allergies: Patient has answered NKA Active and Recently Outpatient Medications (including Supplies): Active Outpatient Medications Status 1) CHOLECALCIF 25MCG (D3-1,000UNIT) TAB TAKE ONE TABLET ACTIVE (S) BY MOUTH EVERY DAY FOR VITAMIN-D 2) TIMOLOL MALEATE 0.5% OPH SOLN INSTILL 1 DROP IN BOTH ACTIVE EYES EVERY MORNING FOR GLAUCOMA 3) TRAVOPROST Z 0.004% OPH SOLN INSTILL 1 DROP IN BOTH ACTIVE (S) EYES AT BEDTIME FOR GLAUCOMA Inactive Outpatient Medications Status 1) ACETAMINOPHEN 500MG TAB TAKE TWO TABLETS BY MOUTH TWICE A DAY NEEDED FOR PAIN *NOT TO EXCEED 4000MG IN 24 HOURS FROM ALL SOURCES* 2) ASPIRIN 81MG EC TAB TAKE ONE TABLET BY MOUTH EVERY DAY 3) ATORVASTATIN CALCIUM 80MG TAB TAKE ONE TABLET BY MOUTH AT BEDTIME 4) CHOLECALCIF 25MCG (D3-1,000UNIT) TAB TAKE ONE TABLET DISCONTINUED BY MOUTH EVERY DAY FOR VITAMIN-D 5) DICLOFENAC NA 1% TOP GEL APPLY 4 GRAMS TOPICALLY TWICE A DAY FOR PAINUSE DOSE CARD IN BOX TO MEASURE DOSEMAX 32 GRAMS PER DAY FROM ALL SITES APPLIED*FOR PAIN RELIEF* 6) FLUTICASONE PROP 50MCG 120D NASAL INHL SPRAY 1 SPRAY IN EACH NOSTRIL EVERY DAY FOR ALLERGIES 7) MELOXICAM 15MG TAB TAKE ONE TABLET BY MOUTH EVERY DAY NEEDED FOR PAINTAKE WITH FOOD 8) METOPROLOL SUCCINATE 100MG SA TAB TAKE ONE-HALF DISCONTINUED TABLET BY MOUTH EVERY DAY (EDIT) 9) METOPROLOL SUCCINATE 50MG SA TAB TAKE ONE TABLET BY MOUTH EVERY DAY 10) MULTIVITS W/MINERALS TAB/CAP (NO VIT K) TAKE 1 TABLET BY MOUTH EVERY DAY 11) SILDENAFIL CITRATE 100MG TAB TAKE ONE TABLET BY MOUTH DISCONTINUED EVERY DAY NEEDED 1 HOUR BEFORE ANTICIPATED SEXUAL ACTIVITY 12) VANICREAM TOP CREAM APPLY THIN LAYER TWICE A DAY FOR DRY SKIN Active Non-VA Medications Status 1) Non-VA NON VA MED NOT LISTED MISCELLANEOUS ALEVE ACTIVE NEEDED 16 Total Medications OUTPT MEDICATIONS: DRUG STATUS SIG TIMOLOL MALEATE 0.5% OPH SOLN ACTIVE SIG: INSTILL 1 DROP IN BOTH EYES EVERY MORNING FOR GLAUCOMA TRAVOPROST Z 0.004% OPH SOLN SUSPENDED SIG: INSTILL 1 DROP IN BOTH EYES AT BEDTIME FOR GLAUCOMA CHOLECALCIF 25MCG (D3-1,000UNIT) TAB SUSPENDED SIG: TAKE ONE TABLET BY MOUTH EVERY DAY FOR VITAMIN-D Review of Systems: A complete review of systems was conducted, pertinent only to the HPI noted above. Constitutional: None Eyes, Ears, Nose, Throat: No additions to above history Cardiovascular: No additions to above history Respiratory: No additions to above history GI: No additions to above history : No additions to above history Skin/Neuro: No additions to above history Endocrine/Heme/Lymph: No additions to above history Immunologic: No additions to above history Psychiatric: No additions to above history Musculoskeletal: See HPI EXAM: VS: Temp: 97.7 F [36.5 C] (07/21/2022 09:52) BP: 127/77 (07/21/2022 09:52) Pulse:74 (07/21/2022 09:52) Resp: 18 (07/21/2022 09:52) Pain: 0 (07/21/2022 09:52) Weight: WEIGHTS IN LAST 6 MONTHS - NONE FOUND GENERAL: INAD. MENTAL STATUS: Pleasant and cooperative. Alert and oriented x3 with normal mood and affect. Vascular: Pulses are palpable 2+, capillary refills to digits are normal. Skin: No wounds/lesions/ulcers. Skin warm & dry. Respiratory: No respiratory distress MSK EXAM: Right Upper Extremity Right Shoulder No deformity, incisions or atrophy TTP at the bicipital groove. Nontender palpation at the AC joint and lateral acromion. AROM/PROM: 70/120 degrees of FF, 60/120 abduction, 60/60 ER, IR to L5 Rotator Cuff strength Empty can: 4/5 (with pain) External rotation: 5/5 (no pain) Subscapularis: 4/5 Belly Press and Bearhug (with pain) Biceps: Positive speeds Positive [place] Majority of shoulder provocative testing deferred given known injury pattern and for patient's comfort. 5/5 strength with skein bleacher, intrinsics, EPL/FPL, wrist flexion and extension Sensate to light touch in all peripheral nerve distributions, skin intact. Upper extremity warm, well-perfused, good capillary refill. Right Upper Extremity Right Shoulder No deformity, incisions or atrophy NTTP at the bicipital groove and AC joint AROM: 180 degrees of FF, 180 abduction, 80 ER, IR to T7 Rotator Cuff strength Empty can: 5/5 External rotation: 5/5 Subscapularis: 5/5 Biceps: Negative Speeds Negative Yergusons Labrum: Negative Big Arm's Impingement: Negative Carr Negative Neers 5/5 strength with skein bleacher, intrinsics, EPL/FPL, wrist flexion and extension Sensate to light touch in all peripheral nerve distributions, skin intact. Upper extremity warm, well-perfused, good capillary refill. IMAGING REVIEWED: XR: AP, Grashey, scapular Y and axillary view of the right shoulder dated 08/21/2023 reviewed which demonstrates only minimal to mild glenohumeral arthritic changes. Humeral head appears appropriately located upon the glenoid. Moderate AC joint arthrosis. No acute fractures or acute bony abnormality seen. MRI: MRI of the right shoulder from outside facility dated 08/03/2023 is reviewed which demonstrates a large tear of the supraspinatus tendon with some remnant tendon on the greater tuberosity and retraction of the supraspinatus tendon to the mid humeral head. There is also subscapularis tendon tear with retraction slightly lateral to the glenoid. There is also evidence of biceps tendinopathy. No appreciable rotator cuff muscle atrophy. Infraspinatus and teres minor tendons appear intact. Moderate AC joint arthrosis. Mild glenohumeral chondral wear. Assessment: 82-year-old [id number]-[id number] male with right subscapularis and supraspinatus tendon tears after acute injury just over 2 months ago. Slowly improving range of motion and pain. Plan: -I reviewed with the patient their clinical and imaging findings -I discussed with the patient both non-surgical and surgical treatment options. Non-surgical options include injection, physical therapy, activity modification, NSAIDs, obtaining advanced imaging. -I discussed with the patient that it would be very reasonable to consider surgical treatment given the acute onset of symptoms. We discussed how acute rotator cuff tears have a higher healing propensity of addressed within the first couple of months. The patient is already beyond this window and therefore I feel he could be treated as a chronic type of tear. We did discuss the potential risk for tear becoming irreparable if too much time had passed. There is no definitive timeline as to when this may occur and this varies for each individual. It would not be unreasonable to consider nonoperative treatment initially and trial of a corticosteroid injection for pain relief to allow him to improve his motion. -If pain should recur or not improve, could consider surgical treatment intervention in the form of a Right shoulder arthroscopy, rotator cuff repair versus debridement, addressing biceps tendon (tenotomy versus tenodesis), subacromial decompression, possible distal clavicle excision. We discussed the postoperative restrictions in place following this including 6 weeks in a sling and up to 6 months before released to full activity. -We discussed the possibility of a reverse shoulder arthroplasty if patient were to have a irreparable rotator cuff tear or patient's arthritis were to progress. There is no significant time sensitivity with this procedure as there is with attempts at rotator cuff repair. -After thorough discussion, patient like to proceed with a corticosteroid injection, continue physical therapy and home exercises. Please see procedure note below for details regarding the injection. -Follow-up in 2 months for repeat assessment. Can consider continued nonoperative treatment versus consideration for rotator cuff repair. Would recommend spacing injection and surgery out by least 3 months to minimize infection risk and optimize healing rates. Total time for this visit exceeded 65 minutes, which included review of the patient??s medical records, diagnostic tests, seeing and counseling the patient as well as documenting in the patient's record. Patient's questions were answered and was in agreement with the plan. Purvi Morse MD Orthopedic Staff Surgeon This note was entered using speech recognition software. Although I diligently review and edit my dictations, inadvertent words or phrases/typos may be present. Procedure Note Procedure: Right shoulder injection with corticosteroid and local anesthestic. Indications: The patient and I discussed the diagnosis and treatment options and the patient felt they would benefit from the injection. I described the injection in detail including the risks, which include but are not limited to discoloration and hypopigmentation of the skin, bleeding, atrophy of the skin and subcutaneous tissues, persistent or recurrent pain or increased pain at the injection site, hyperglycemia, as well as the risk of infection and/or local nerve irritation. Specifically, we cautioned the patient regarding signs of infection and the need for immediate evaluation in this case. The patient verbalized an understanding of these risks and consented to the injection. Allergies were reviewed. A timeout was performed confirming the correct patient and injection site. The right shoulder was prepped sterilely with CHG swabs, and then using sterile technique, 3mLof 1% lidocaine, 2mL of 0.25% bupivacaine and 1mL of 40mg/mL of depo-medrol was injected into the subacromial space via a posterior approach. The injection site was bandaged with a band-aid, the patient tolerated the procedure well and there were no complications. /corrine/ PURVI MORSE MD STAFF ORTHOPAEDIC SURGEON Signed: 08/21/2023 13:05 PURVI MORSE [facility]
--- OUTSIDE RECORDS SUMMARY | 2023-09-02 16:43 | XMS_ITS | Encounter Summary ---
Author Name [facility] [place] [facility] [place] Address [address] [place] [address] Care Team Providers Care Learning And Development Intern Name Role Phone ISACC FIGUEROA Primary Care [...] Name Patient's Relationship to Policy Edwards BCBS [facility] (WNR) MEDICARE ADVANTAGE [facility] (WNR) Mar 06, 2018 [id number] [phone] Arabella BRADFORD PATIENT MEDICARE (WNR) MEDICARE (M) PART A Oct 05, 2007 PART A [id number] [phone] Arabella BRADFORD PATIENT MEDICARE (WNR) MEDICARE (M) PART B Oct 05, 2007 PART B [id number] [phone] Arabella BRADFORD PATIENT Selected Encounter This section includes the information on record at [place] for the Encounter. Date/Time Encounter Type Encounter Description Reason Pro vider Source Aug 21, 2023 10:57 AM Outpatient Encounter EVENT (HISTORICAL) IHE Encounter Template Text not used by [facility] Plan of Treatment: Future Appointments (+ 6 months) and Future Tests (+/- 45 days) The Plan of Treatment section includes future care activities for the patient [facility] [place] [facility] This section includes future appointments and future orders which are active, pending or scheduled. Future Appointments This section includes appointments that were scheduled to occur 6 months from the date of the Encounter, up to a maximum of 20 appointments. The data comes from all [facility]. Appointment Date/Time Appointment Type Appointme nt Facility Name Aug 24, 2023 10:30 AM [facility]BULATORY - [facility]INE [facility] Sep 19, 2023 09:30 AM AMBULATORY - REHAB MEDICIN E [facility] Oct 23, 2023 10:30 AM [...] of theEncounter. The data comes from all [facility]. Test Date/Time Test Type Test Details Facility Name Aug 24, 2023 11:07 AM Pharmacy - Clinic Medication Order [facility] Social History: Smoking Status (Most current) and Tobacco Use (All prior to encounter date) This section includes the most current, and the historical, smoking and tobacco- related health factors from the [place] facility where the Encounter took place. Current Smoking Status This section includes the most current smoking, or tobacco-related health factor, from the [place] facility where the Encounter took place. Date/Time Current Smoking Status Comment Facil ity July 21, 2022 10:00 AM VA-TOBACCO NEVER USED [facility] Tobacco Use History This section includes a history of the smoking, or tobacco-related health factors, that were collected on or before the date of the Encounter. The data comes from the [place] facility where the Encounter took place. Date/Time Smoking Status/Tobacco Use Comment F acility Aug 05, 2021 11:30 AM VA-TOBACCO NEVER USED [facility] Dec 25, 2018 09:57 AM VA-TOBACCO FORMER USER [facility] Dec 25, 2018 09:57 AM VA-TOBACCO QUIT 15 YRS OR MORE [facility] Dec 14, 2017 09:11 AM VA-TOBACCO NEVER USED [facility] Dec 22, 2016 10:22 AM FORMER TOBACCO USER 7Y OR ERIN R [facility] Jan 20, 2016 10:51 AM LIFETIME NON-TOBACCO USER [facility] Jan 08, 2015 10:35 AM FORMER TOBACCO USER 7Y OR ERIN R [facility] Jan 01, 2014 04:02 PM FORMER TOBACCO USER 7Y OR JUNIORE R [facility] Apr 01, 2010 10:12 AM FORMER TOBACCO USER 7Y OR ERIN R [facility] Advance Directives: All historical and current Section Date Range: From patient's date of to the date document was created. This section includes ALL of a patient's completed or amended [place] Advance and Rescinded Directives. The entries below indicate that a directive exists for the patient, but an actual copy is not included with this document. The data comes from all [place] facilities. Date Advance Directives Provider Source Jan 02, 2014 ADVANCE DIRECTIVE SALAZARKATARZYNA [facility] Jan 02, 2014 ADVANCE DIRECTIVE DISCUSSION RANIMenaKATARZYNA [facility] Radiology Reports: +/- 30 days [...] the Encounter. The data comes from all [place] treatment facilities. Date/Time Radiology Report Provider Source Aug 21, 2023 09:26 AM SHOULDER RIGHT 4V: DILAN BRADFORD [id number] -1940 M Ex Date: AUG 21, 2023@09:26 Req Phys: IGOR LEES Loc: [facility] E-CONSULT (Req'g Loc Img Loc: MAIN X-RAY Service: [place] [address] (Case [id number] COMPLETE) SHOULDER RIGHT 4V (RAD Detailed) CPT:30344 Proc Modifiers : RIGHT Reason for Study: [...] 21, 2023 Date Verified: AUG 21, 2023 Graphic Specialist E-Sig:/ES/MARLA GILLETTE DO Report: EXAMINATION: SHOULDER RIGHT 4V 08/21/2023 9:26 AM INDICATION: right shoulder pain COMPARISON: MRI 08/03/2023 Impression: No acute fracture, dislocation or AC separation. Mild to moderate AC joint degenerative change with spurring. Humeral head is not overtly high riding. Mild bony ridging in the glenohumeral joint. Sequelae of median sternotomy. Primary Interpreting Staff: MARLA GILLETTE DO, RADIOLOGIST (Graphic Specialist) /DDS MARLA GILLETTE [facility] August 03, 2023 08:17 AM [facility] MRI UPPER E XTREMITY: DILAN BRADFORD [id number] -1940 M Exm Date: AUGUST 03, 2023@08:17 Req Phys: ISACC FIGUEROA Pat Loc: [facility] XRAY GENERAL AM (Req'g Loc Img Loc: OUTSOURCE MRI Service: Unknown (Case [id number] COMPLETE) [facility] MRI UPPER EXTREMITY (MRI Detailed) CPT:87659 Contrast Media : Gadolinium Reason for Study: outside study Clinical History: outside study Report Status: Electronically Filed Date Reported: AUG 18, 2023 Report: This is an outside Imaging study and/or report imported for continuity of patient care. This Imaging study and/or report was not reviewed or verified by a [place] Radiologist. Impression: This is an outside Imaging study and/or report imported for continuity of patient care. This Imaging study and/or report was not reviewed or verified by a [place] Radiologist. Primary Diagnostic Code: VERIFIED BY: / *ELECTRONICALLY FILED* [facility]
--- OUTSIDE RECORDS SUMMARY | 2023-09-02 16:43 | XMS_ITS | Clinical Summary ---
Author Organization [employer] [facility] [place] Address [place], [place] [address] Care Team Providers Care Photonics Technician Name Role Phone Zofia Fuentes MD Primary Care Provider [phone] Allergies No known active allergies Medications Medication Sig Dispensed Refills Start Date End Date Status acetaminophen (TYLENOL) 325 mg tablet Take 650 mg by mouth every 4 hours if needed. 11/15/2021 Active aspirin (ECOTRIN) 81 mg enteric coated tablet Take 81 mg by mouth. 11/16/2021 Active atorvastatin (LIPITOR) 80 mg tablet Take 80 mg by mouth. 11/16/2021 Active cholecalciferol (VITAMIN D3) 1,000 unit tablet Take 1,000 units by mouth. Active diclofenac topical (VOLTAREN) 1 % gel Apply 4 g topically to affected area(s). Active metoprolol tartrate (LOPRESSOR) 25 mg tablet Take 25 mg by mouth. 11/15/2021 Active multivitamin with folic acid 0.4 mg Take 1 Tablet by mouth. Active artificial tears, peg 400-propylene glycol, (SYSTANE) 0.4-0.3 % drop ophthalmic Place 1 Drop into the eye(s). Active timolol (TIMOPTIC -XE) 0.5 % ophthalmic gel-forming Place 1 Drop into the eye(s). Active traMADoL (ULTRAM) 50 mg tablet Take 50 mg by mouth every 4 hours if needed. 11/15/2021 Active travoprost 0.004% (TRAVATAN Z) 0.004 % ophthalmic solution Place 1 Drop into the eye(s). Active Active Problems Problem Noted Date Diagnosed Date Benign neoplasm of colon 06/27/2008 Overview: Colonoscopy 06/2008 polyp repeat in 5 years Pure hypercholesterolemia 03/18/2008 Unspecified hypothyroidism 03/18/2008 Immunizations Name Administration Dates Next Due Pneumococcal Poly,23-Valent (Pneumovax) 03/18/19 09 Td, Preservative Free (age >= 7 Years) 9 Family History Medical History Relation Name Comments Cancer-prostate Father d 75 yo Heart Disease Father [place] Stroke Father Good Health Mother d 98 yo Relation Name Status Comments Father Mother Social History Tobacco Use Types Packs/Day Years Used Date Smoking Tobacco: Never Alcohol Use Standard Drinks/Week Comments Yes 0.4 (1 standard drink = 0.6 oz p ure alcohol) 1-2 per month PHQ-2 Answer Date Recorded PHQ-2 TOTAL SCORE 5 12/02/2021 Social Connections Answer Date Recorded Frequency of Communication with Friends and Fami ly Not on file 12/02/2021 Sex and Gender Information Value Date Recorded Sex Assigned at Not on file Gender Identity Not on file Sexual Orientation Not on file Obstetrics History Last Filed Vital Signs Vital Sign Reading Time Taken Comments Blood Pressure 113/77 12/02/2021 1:20 PM CDT Pulse 94 12/02/2021 1:20 PM CDT Temperature 36.9 ??C (98.5 ??F) 12/30/2008 9:33 AM CD T Respiratory Rate - - Oxygen Saturation 94% 12/02/2021 1:20 PM CDT Inhaled Oxygen Concentration - - Weight 92.8 kg (204 lb 9.6 oz) 12/02/2021 1:20 P M CDT Height 189.2 cm (6' 2.5) 12/02/2021 1:20 PM CDT Body Mass Index 25.92 12/02/2021 1:20 PM CDT Plan of Treatment Health Maintenance Due Date Last Done Comments Tdap 1951 Zoster (shingles) series for age 50+ (1 of 2) 1992 Medicare Wellness for age 65+ 10/22/2007 Pneumococcal series for age 65+ (2 of 2 - PCV) 03/18/2009 03/18/2008 Tetanus booster 03/18/2018 03/18/2008 COVID-19 vaccine series (2 - 2022-24 season) 2022 07/01/2021 BMI (ht and wt on same day) for age 18+ 12/02/2022 12/02/2021 Depression screening for age 12+ 12/06/2022 12/06/2021, 12/03/2021, 12/02/2021, Additional history exists Influenza for age 65+ 11/05/2023 Care Teams Photonics Technician Relationship Specialty Start Date End Date Zofia Fuentes MD [address] [place] [id number] PCP - General Internal Medicine 12/02/21
--- OUTSIDE RECORDS SUMMARY | 2023-09-02 16:43 | XMS_ITS | Encounter Summary ---
Author Name [facility] [facility] [place] [facility] [place] Address [address] [place] [address] Care Team Providers Care Composite Layup Worker Name Role Phone ISACC FIGUEROA Primary Care [...] Name Patient's Relationship to Policy Edwards BCBS [facility] (WNR) MEDICARE ADVANTAGE [facility] (WNR) Mar 06, 2018 [id number] [phone] Arabella BRADFORD PATIENT MEDICARE (WNR) MEDICARE (M) PART A Oct 05, 2007 PART A [id number] [phone] Arabella BRADFORD PATIENT MEDICARE (WNR) MEDICARE (M) PART B Oct 05, 2007 PART B [id number] [phone] Arabella BRADFORD PATIENT Selected Encounter This section includes the information on record at [place] for the Encounter. Date/Time Encounter Type Encounter Description Reason Pro vider Source August 03, 2023 12:00 AM Outpatient Encounter ADMIN PAT ACTIVTIES (MASNONCT) IHE Encounter Template Text not used by [place] Plan of Treatment: Future Appointments (+ 6 months) and Future Tests (+/- 45 days) The Plan of Treatment section includes future care activities for the patient from all [place] [facility]. This section includes future appointments and future orders which are active, pending or scheduled. Future Appointments This section includes appointments that were scheduled to occur 6 months from the date of the Encounter, up to a maximum of 20 appointments. The data comes from all [facility]. Appointment Date/Time Appointment Type Appointme nt Facility Name Aug 07, 2023 03:00 PM AMBULATORY - REHAB MEDICIN E [facility] Aug 18, 2023 09:30 AM AMBULATORY - REHAB MEDICIN E [facility] Aug 21, 2023 10:00 AM AMBULATORY - NONE [place] [facility] Aug 21, 2023 10:30 AM AMBULATORY - SURGERY [facility] Aug 24, 2023 10:30 AM [facility]ORY - [place]IC[place] [facility] Sep 19, 2023 09:30 AM AMBULATORY - REHAB MEDICIN E [facility] Oct 23, 2023 10:30 AM AMBULATORY - [...] comes from all [facility]. Test Date/Time Test Type Test Details Facility Name Aug 24, 2023 11:07 AM Pharmacy - Clinic Medication Order [facility] Social History: Smoking Status (Most current) and Tobacco Use (All prior to encounter date) This section includes the most current, and the historical, smoking and tobacco- related health factors from the [place] facility where the Encounter took place. Current Smoking Status This section includes the most current smoking, or tobacco-related health factor, from the [place] facility where the Encounter took place. Date/Time Current Smoking Status Comment [place] ity July 21, 2022 10:00 AM VA-TOBACCO NEVER USED [facility] Tobacco Use History This section includes a history of the smoking, or tobacco-related health factors, that were collected on or before the date of the Encounter. The data comes from the [place] facility where the Encounter took place. Date/Time Smoking Status/Tobacco Use Comment F acility Aug 05, 2021 11:30 AM VA-TOBACCO NEVER USED [facility] Dec 25, 2018 09:57 AM VA-TOBACCO FORMER USER [facility] Dec 25, 2018 09:57 AM [place]-TOBACCO QUIT 15 YRS OR MORE [facility] Dec 14, 2017 09:11 AM VA-TOBACCO NEVER USED [facility] Dec 22, 2016 10:22 AM FORMER TOBACCO USER 7Y OR GREATE R [facility] Jan 20, 2016 10:51 AM LIFETIME NON-TOBACCO USER [facility] Jan 08, 2015 10:35 AM FORMER TOBACCO USER 7Y OR GREATE R [facility] Jan 01, 2014 04:02 PM FORMER TOBACCO USER 7Y OR GREATE R [facility] Apr 01, 2010 10:12 AM FORMER TOBACCO USER 7Y OR GREATE R [facility] Advance Directives: All historical and current Section Date Range: From patient's date of to the date document was created. This section includes ALL of a patient's completed or amended [place] Advance and Rescinded Directives. The entries below indicate that a directive exists for the patient, but an actual copy is not included with this document. The data comes from all [facility]. Date Advance Directives Provider Source Jan 02, 2014 ADVANCE DIRECTIVE SALAZARLOUIEKATARZYNA [facility] Jan 02, 2014 ADVANCE DIRECTIVE DISCUSSION RANIMenaVIVIN [facility] Radiology Reports: +/- 30 days of the [...] the Encounter. The data comes from all [place] treatment facilities. Date/Time Radiology Report Provider Source Aug 21, 2023 09:26 AM SHOULDER RIGHT 4V: BRADFORDDILAN BOSE [id number] -1940 M Ex Date: AUG 21, 2023@09:26 Req Phys: IGOR LEES Loc: [facility] ORTHO E-CONSULT (Req'g Loc Img Loc: MAIN X-RAY Service: [place] [address] (Case [id number] COMPLETE) SHOULDER RIGHT 4V (RAD Detailed) CPT:31440 Proc Modifiers : RIGHT Reason for Study: right shoulder pain Clinical History: [facility] IS NOT under investigation for COVID-19 or is COVID-19 negative right shoulder pain Responsible provider name and phone number to notify for critical findings if other than user placing the order and pager listed below: User placing orders pager: LAST CREATININE____ Report Status: Verified Date Reported: AUG 21, 2023 Date Verified: AUG 21, 2023 Car Cleaning Supervisor E-Sig:/ES/MARLA GILLETTE DO Report: EXAMINATION: SHOULDER RIGHT 4V 08/21/2023 9:26 AM INDICATION: right shoulder pain COMPARISON: MRI 08/03/2023 Impression: No acute fracture, dislocation or AC separation. Mild to moderate AC joint degenerative change with spurring. Humeral head is not overtly high riding. Mild bony ridging in the glenohumeral joint. Sequelae of median sternotomy. Primary Interpreting Staff: MARLA GILLETTE DO, RADIOLOGIST (Car Cleaning Supervisor) /DDS MARLA GILLETTE [facility] August 03, 2023 08:17 AM NON [place] MRI UPPER E XTREMITY: DILAN BRDAFORD [id number] -1940 M Exm Date: AUGUST 03, 2023@08:17 Req Phys: ISACC FIGUEROA Pat Loc: [facility] XRAY GENERAL AM (Req'g Loc Img Loc: OUTSOURCE MRI Service: Unknown (Case [id number] COMPLETE) NON [place] MRI UPPER EXTREMITY (MRI Detailed) CPT:05466 Contrast Media : Gadolinium Reason for Study: outside study Clinical History: outside study Report Status: Electronically Filed Date Reported: AUG 18, 2023 Report: This is an outside Imaging study and/or report imported for continuity of patient care. This Imaging study and/or report was not reviewed or verified by a [place] Radiologist. Impression: This is an outside Imaging study and/or report imported for continuity of patient care. This Imaging study and/or report was not reviewed or verified by a [place] Radiologist. Primary Diagnostic Code: VERIFIED BY: / *ELECTRONICALLY FILED* [facility] Encounter Notes: All associated encounter notes This section contains the clinical notes associated to the Encounter. Date/Time Encounter Note(s) Provider Source August 03, 2023 12:00 AM NONVA NOTE: LOCAL TITLE: RADIOLOGY NONVA NOTE STANDARD TITLE: NONVA NOTE DATE OF NOTE: AUGUST 03, 2023 ENTRY DATE: AUG 31, 2023@22:03:55 AUTHOR: DANNY RUSSELL EXP COSIGNER: URGENCY: STATUS: COMPLETED VistA Imaging - Scanned Document This note contains attached RADIOLOGY scanned document(s) received from an outside facility. Open [facility] to review the document(s). /corrine/ DANNY RUSSELL Armature Winder Helper Repair - HIT Signed: 08/31/2023 22:03 DANNY RUSSELL [facility]
--- NOTE | 2023-09-02 17:23 | PC.NURSE ---
EMS here for transfer, report has been called to [facility]. Pt VSS, driving up separate.
== END 2023-09-02 17:15 | disposition short-term general hospital (02) ==
PROVIDERS: Emergency Provider Family Medicine
DX: S68.625A Partial traumatic transphalangeal amputation of left ring finger, initial encounter (principal); S61.213A Laceration without foreign body of left middle finger without damage to nail, initial encounter; S61.311A Laceration without foreign body of left index finger with damage to nail, initial encounter; W31.2XXA Contact with powered woodworking and forming machines, initial encounter
CPT/HCPCS: 96365; 96375; 99284; 99285; J0690; J1170